=== PATIENT | female | born 1980 | race Caucasian/White ===

== ENCOUNTER 2016-07-04 17:22 | Emergency (ER) | payer MEDICARE, MEDICAID ==
[~2016-07-04] VITALS: Wt 74.4 kg
[~2016-07-04 17:22] MED LIST: ACETAMINOPHEN; ALBUTEROL2.5 MG/0.5 INH; AMBIEN10 M1 PO; AMBIEN10 MG PO; AMINOPHYLLIN200 MG PO; ANTIBIOTIC O500 U/GM TP; APAP PO; ATENOLOL25 MG PO; ATROVENT I0.5 MG/2.5 INH; AUGMENTIN 875-875 MG PO; AZO-SULFISOXAZO1 TA1 PO; BACTRIM DS 8001 TA1 PO; BENADRYL25 M2 PO; BISACODYL LAXATI5 MG PO; BISACODYL5 MG PO; CALCI-MIX500 MG PO; CALMOSEPTINE O3.5 GM TP; CEFUROXIME AXE250 MG PO; CIPRO250 MG PO; CIPRO500 MG PO; CIPRO500 MG/5 M PO; CIPROFLOXACIN250 MG PO; CIPROFLOXACIN500 MG PO; CODEINE; COREG3.125 MG PO; Ciprofloxacin500 MG PO; DEXILANT60 M1 PO; DIFLUCAN150 MG PO; DITROPAN XL5 MG PO; DOC-Q-LACE100 MG PO; DULCOLAX5 MG PO; ERYTHROMYCIN500 M1 PO; FEOSOL300 MG; FEROSUL325 MG PO; FERROUS SULFAT325 MG PO; FEVER REDUCER650 MG RC; FLOMAX0.4 MG PO; FLUCONAZOLE100 MG PO; FOLIC ACID1 MG PO; GAVISCON 95 MG360 ML PO; HUMALOG100 UNIT/1 SQ; HYDROCHLOROTHIA25 MG PO; HYDROCODONE BIT1 T11 PO; HYDROXYZINE HYD50 MG PO; KCL PO; KEFTAB500 MG PO; LASIX20 MG PO; LASIX40 MG PO; LEVEMIR10 ML SC; LEVOFLOXACIN250 M2 PO; LEVOFLOXACIN500 MG PO; LEVOTHYROXIN0.075 M1 PO; LINEZOLID600 MG PO; LISINOPRIL5 MG PO; LOMOTIL 0.025 M1 TA1 PO; LOPRESSOR25 MG PO; Lopressor25 MG PO; MACROBID100 M1 PO; MACRODANTIN100 M1 PO; MAG PO; MAG64 110 MG-181 ECT PO; MEDROL DOSEPAK4 MG PO; MEROPENEM-1 GM/50 ML IV; METOCLOPRAMIDE10 MG PO; METOPROLOL SR50 MG PO; METOPROLOL SUCC25 M2 PO; MIRALAX POWDER255 GM PO; MIRALAX17 GM PO; MIRALAX17 GM/PACK PO; MOTRIN400 MG PO; MOTRIN600 MG PO; NATURE'S BLEND F1 MG PO; NEXIUM20 MG PO; NITROFURANTOIN100 M9 PO; NORCO 10-325 T1 EACH PO; OMEPRAZOLE MAGN20 M1 PO; OXYBUTYNIN5 MG PO; OXYCODONE 20 MG/ML PO; OXYCODONE PO; OXYCODONE5 M1 PO; PAIN RELIEVER325 MG PO; PANTOPRAZOLE SO40 MG PO; PERCOCET 325 MG1 TA2 PO; PIPERACIL-TA3.375 GM IV; POLYETHYLE17 GM/Dose PO; POTASSIUM CHLO20 MEQ PO; PRILOSEC20 M1 PO; PRILOSEC20 MG PO; PROTONIX40 MG PO; PULMICORT RESP0.5 MG NEB; PYRIDIUM200 MG PO; REGLAN10 M1 PO; REGLAN10 MG PO; SLOW MAG 110 MG64 MG PO; SYNTHROID0.075 MG PO; Synthroid,Levo50 MCG PO; TAMSULOSIN HCL0.4 MG PO; TAMSULOSIN HYD0.4 MG PO; TENORMIN25 MG PO; TRAMADOL50 MG PO; TRAZODONE50 MG PO; TROSPIUM CHLORI20 M1 PO; TYLENOL W/ CODEI5 ML PO; ULTRAM50 MG PO; ZOFRAN ODT4 MG SL; ZOLPIDEM TART10 MG PO; ZOLPIDEM10 M1 PO; ZYVOX600 MG PO; [UNRECOGNIZED DRUG - OTHER] PO; [UNRECOGNIZED DRUG - OTHER] PO
[2016-07-04 18:59] LABS: HEMATOCRIT 34.6 % (37.0-47.0); HEMOGLOBIN 10.3 g/dl (12.0-16.0); MEAN CELL VOLUME 98.3 fl (81.0-99.0); MEAN CORPUSCULAR HGB 29.3 pg (27.0-31.0); MEAN CORPUSCULAR HGB CONC 29.8 g/dl (33.0-37.0); MEAN PLATELET VOLUME 11.2 fl (9.6-12.3); PLATELET COUNT AUTOMATED 262 10*3/uL (130-400); RED BLOOD COUNT 3.52 10*6/uL (4.10-5.10); RED CELL DISTRI WIDTH 19.1 % (0-14.5); WHITE BLOOD COUNT 20.1 10*3/uL (4.8-10.8)
[2016-07-04 19:15] LABS: BILIRUBIN, TOTAL 0.2 mg/dl (0.2-1.0); POTASSIUM 4.5 mmol/L (3.5-5.1); TOTAL PROTEIN 7.8 gm/dL (6.4-8.2)
[2016-07-04 19:18] LABS: EOSINOPHIL # 0.2 10*3/uL (0-0.4); EOSINOPHILS 1 % (1-4); LYMPHOCYTE # 0.6 10*3/uL (1.3-4.4); MONOCYTE # 0.6 10*3/uL (0.1-1.0); NEUTROPHIL # 18.7 10*3/uL (2.3-7.9); NEUTROPHILS 93 % (47-73); PLATELET SUFFICIENCY NORMAL (NORMAL); TOTAL CELLS COUNTED 100 #CELLS
[2016-07-04 21:40] VITALS: BP 142/88
[2016-07-28] MEDS ORDERED: MAG64 110 MG-181 ECT PO (15:01)
[2016-07-28] MEDS ORDERED: NATURE'S BLEND F1 MG PO (15:01)
[2016-07-28] MEDS ORDERED: [UNRECOGNIZED DRUG - OTHER] PO (15:02)
[2016-08-01] MEDS ORDERED: ACETAMINOPHEN &1 TA1 PO (08:33)
[2016-08-01] MEDS ORDERED: DUONEB 3 MG/3 ML3 M1 NEB (08:33)
[2016-08-01] MEDS ORDERED: FEROSUL325 MG PO (08:33)
[2016-08-01] MEDS ORDERED: NITROFURANTOIN100 M3 PO (08:33)
[2016-08-01] MEDS ORDERED: NORCO 5-325 TA1 EACH PO (08:51)
[2016-08-09] MEDS ORDERED: PANTOPRAZOLE SO40 MG PO (12:36)
[2016-08-09] MEDS ORDERED: FEROSUL325 MG PO (12:37)
[2016-08-10] MEDS ORDERED: MACRODANTIN100 M1 PO (09:42)
== END 2016-07-04 21:45 | disposition short-term general hospital (02) ==
LOC: ED 17:22
PROVIDERS: Nurse Practitioner Family
DX: R65.20 Severe sepsis without septic shock (principal); T83.022A Displacement of nephrostomy catheter, initial encounter; K21.9 Gastro-esophageal reflux disease without esophagitis; E03.9 Hypothyroidism, unspecified; Z79.899 Other long term (current) drug therapy

== ENCOUNTER → 2016-09-10 | Outpatient (CLI) | payer MEDICARE, MEDICAID ==
[~2016-09-10] MED LIST changes: +ACETAMINOPHEN &1 TA1 PO; +DUONEB 3 MG/3 ML3 M1 NEB; +NITROFURANTOIN100 M3 PO; +NORCO 5-325 TA1 EACH PO
[2016-09-10 12:04] LABS: BASO % 0.4 % (0.0-1.0); EOS # 0.5 10*3/uL (0.0-0.4); EOS % 5.2 % (1.0-4.0); HEMATOCRIT 28.2 % (37.0-47.0); HEMOGLOBIN 8.5 g/dl (12.0-16.0); IG # 0.1 10*3/uL (0.0-0.1); LYMPH # 1.5 10*3/uL (1.3-4.4); LYMPH % 16.3 % (27.0-41.0); MEAN CELL VOLUME 101.4 fl (81.0-99.0); MEAN CORPUSCULAR HGB 30.6 pg (27.0-31.0); MEAN CORPUSCULAR HGB CONC 30.1 g/dl (33.0-37.0); MEAN PLATELET VOLUME 10.7 fl (9.6-12.3); MONO # 0.4 10*3/uL (0.1-1.0); MONO % 4.5 % (3.0-9.0); NEUT # 6.9 10*3/uL (2.3-7.9); NEUT % 73.1 % (47.0-73.0); PLATELET COUNT AUTOMATED 234 10*3/uL (130-400); RED BLOOD COUNT 2.78 10*6/uL (4.10-5.10); RED CELL DISTRI WIDTH 17.6 % (0-14.5); WHITE BLOOD COUNT 9.4 10*3/uL (4.8-10.8)
== END | disposition home or self-care (01) ==
LOC: LAB 11:37
PROVIDERS: Student in an Organized Health Care Education/Training Program
DX: D64.9 Anemia, unspecified (principal)

== ENCOUNTER 2016-10-08 10:57 | Emergency (ER) | payer MEDICARE, MEDICAID ==
[~2016-10-08] VITALS: Wt 74.4 kg
[2016-10-08 11:16] VITALS: BP 108/53
[2016-10-08 11:38] LABS: BILIRUBIN NEGATIVE (NEGATIVE); BLOOD 2+ (NEGATIVE); CLARITY TURBID (CLEAR); COLOR YELLOW (YELLOW); GLUCOSE NEGATIVE (NEGATIVE); KETONE NEGATIVE (NEGATIVE); LEUKO ESTERASE 3+ (NEGATIVE); NITRITE POSITIVE (NEGATIVE); PH 5.5 (5.0-9.0); PROTEIN 1+ (NEGATIVE); UROBILINOGEN 0.2 E.U./dl (0.2-1.0)
[2016-10-08 11:57] LABS: URINE REFLEX COMMENT YES (NO); WBC TNTC wbc/hpf (0-5)
[2016-10-08] MEDS ORDERED: CIPRO500 MG PO (12:09)
== END 2016-10-08 12:26 | disposition home or self-care (01) ==
LOC: ED 10:57
PROVIDERS: Nurse Practitioner Family
DX: N39.0 Urinary tract infection, site not specified (principal); Z87.442 Personal history of urinary calculi; Z79.899 Other long term (current) drug therapy

== ENCOUNTER 2016-10-21 11:16 | Emergency (ER) | payer MEDICARE, MEDICAID ==
[~2016-10-21] VITALS: Wt 74.4 kg
[2016-10-21 11:33] VITALS: BP 105/73
[2016-10-21 12:18] LABS: BILIRUBIN NEGATIVE (NEGATIVE); BLOOD 1+ (NEGATIVE); CLARITY CLOUDY (CLEAR); COLOR YELLOW (YELLOW); GLUCOSE NEGATIVE (NEGATIVE); KETONE NEGATIVE (NEGATIVE); LEUKO ESTERASE 3+ (NEGATIVE); NITRITE NEGATIVE (NEGATIVE); PROTEIN TRACE (NEGATIVE); UROBILINOGEN 0.2 E.U./dl (0.2-1.0)
[2016-10-21 12:34] LABS: BACTERIA 3+; WBC TNTC wbc/hpf (0-5)
[2016-10-21 12:35] LABS: URINE REFLEX COMMENT YES (NO)
[2016-10-21 12:37] LABS: RBC 16-20 rbc/hpf (0-2)
== END 2016-10-21 12:03 | disposition home or self-care (01) ==
LOC: ED 11:16
PROVIDERS: Emergency Medicine
DX: Z46.6 Encounter for fitting and adjustment of urinary device (principal); N39.0 Urinary tract infection, site not specified; E03.9 Hypothyroidism, unspecified

== ENCOUNTER 2016-11-29 12:18 | Inpatient (IN) | payer MEDICARE, MEDICAID ==
[~2016-11-29] VITALS: Ht 160 cm; Wt 71.7 kg
--- NOTE | ~2016-11-29 | O ---
[place], [place] OPERATIVE NOTE [facility]: [id number] UNIT #: [id number] ROOM: 523 DOCTOR: LEONOR DIAZ,HOOD BIRTHDATE: [birth year] DOS: INDICATION: A 35-year-old patient who was presented with anemia and family remains ambiguous and concerned about the source despite discussion with them, however. PROCEDURE: Today's procedure part of investigation is colonoscopy. PREMEDICATION: Versed and Diprivan. SCOPE: Olympus folding colonoscope 10L video. REPORT: After putting the patient in the left lateral position and after application of lubricant to rectal pouch and digital examination, scope was introduced. Thereafter, under direct visualization, I advanced through the length of colon without difficulty. Colon mucosa and vascularity carefully examined. Base of the cecum explored, appendiceal orifice identified and ileocecal valve was defined. No acute pathology seen. The patient extubated, tolerated procedure well. IMPRESSION: Normal colonoscopic examination. PLAN: Supportive therapy. Soft and regular diet. ACTIVITY: Ad umang. HOOD GALVEZ MD CM:OPRECORD:OPERATIVE NOTE [id number] HOOD GALVEZ MD 12/05/16 1629 interface
--- NOTE | ~2016-11-29 | CON ---
[place], [place] REPORT OF CONSULTATION NAME: FREDDY RAUSCH UNIT #: [id number] ROOM: 523 DOCTOR: HOOD GALVEZ MD BIRTHDATE: [birth year] DOS: 12/03/2016 GASTROENDOSCOPIC CONSULTATION HISTORY OF PRESENT ILLNESS: The patient is 35 years old with mental retardation, advanced, with anemia, undergoing investigation. Initial H and H were 8 and 27 and subsequently dropped to 7 and 25. Comprehensive metabolic panel: Creatinine 2.3, GFR of 29. Electrolytes: Sodium 149, chloride 117, potassium 5.1. Liver function tests normal. B12, folate, and vitamin D has been addressed. Vitamin D is 17. CBC differential within normal limits. Urine culture greater than 100,000 gram-negative bacilli. Blood cultures unremarkable. PAST MEDICAL HISTORY: Advanced mental retardation, hiatal hernia, hypothyroidism, cerebral palsy, GERD, gastritis, renal lithiasis and renal insufficiency. PAST SURGICAL HISTORY: Nephrostomy, bone marrow transplant. SOCIAL HISTORY: Nonsmoker, nonalcohol consumer. FAMILY HISTORY: Noncontributory. ALLERGIES: To no known medications. MEDICATIONS: Medication list has been reviewed including pantoprazole. REVIEW OF SYSTEMS: Cannot be obtained from her due to the cognitive incapability and advanced retardation. PHYSICAL EXAMINATION: GENITOURINARY: No communication with the patient. HEENT: Benign for age and category of disease, exophthalmus was noticed. NECK: Supple. LUNGS: No wheeze. No rhonchi. HEART: Normal sinus rhythm, no gallop, no murmur. ABDOMEN: Obese, soft. No hepato-organomegaly. Bowel sounds present. EXTREMITIES: No cyanosis, no pedal edema. NEUROLOGIC: Alert and disoriented. LABORATORY DATA: Reviewed. Records reviewed. IMPRESSION: Gastrointestinal bleed, anemia, cerebral palsy, mental retardation, renal insufficiency, gastroesophageal reflux disease. OTHER ADJUNCTIVE DIAGNOSES: As outlined in past medical and surgical history. PLAN AND DISCUSSION: We are going to proceed with panendoscopy. [place], [place] REPORT OF CONSULTATION NAME: FREDDY RAUSCH UNIT #: [id number] ROOM: 523 DOCTOR: HOOD GALVEZ MD BIRTHDATE: [birth year] HOOD GALVEZ MD CM:CONSTR:REPORT OF CONSULTATION 1259 12/04/16 0534 interface
--- NOTE | ~2016-11-29 | O ---
[place], [place] OPERATIVE NOTE NAME: [id number] UNIT #: [id number] ROOM: 523 DOCTOR: LEONOR DIAZ,HOOD BIRTHDATE: [birth year] DOS: 12/03/2016 HISTORY OF PRESENT ILLNESS: The patient has presented with chief complaint of mental retardation, guaiac positivity, anemia, drop in H and H. PROCEDURE: Today's procedure part of investigation is panendoscopy plus biopsy. PREMEDICATIONS: Versed and Diprivan. SCOPE: Olympus forward-viewing gastroscope Q10 video. REPORT: After putting the patient in the left lateral position and after application of lubricant to the scope, the scope was introduced thereafter, under direct visualization and advanced throughout the length of the esophagus without difficulty. Distal esophageal ulceration was noticed. Gastric pouch was entered. Blood in the stomach was noticed, photographed, aspirated, suctioned out and antral biopsy obtained ruling out H. pylori. Duodenal bulb, second and third parts, no bleeding, no ulcer. The patient extubated, tolerated the procedure well. IMPRESSION: Distal esophageal ulcer, upper GI bleed. PLAN AND DISCUSSION: Protonix 40 mg IV b.i.d., Carafate 2 grams slurry q. 6 hours. Follow up on H and H transfusion. Colonic content was bloody; therefore, no colonoscopy was performed, retained stool. HOOD GALVEZ MD CM:OPRECORD:OPERATIVE NOTE [id number] [id number] HOOD GALVEZ MD 12/04/16 0925 interface
[2016-11-29 12:30] VITALS: BP 132/86
[2016-11-29 13:20] LABS: BILIRUBIN NEGATIVE (NEGATIVE); BLOOD 2+ (NEGATIVE); CLARITY CLOUDY (CLEAR); COLOR YELLOW (YELLOW); GLUCOSE NEGATIVE (NEGATIVE); KETONE NEGATIVE (NEGATIVE); LEUKO ESTERASE 3+ (NEGATIVE); NITRITE POSITIVE (NEGATIVE); PROTEIN 1+ (NEGATIVE); SPECIFIC GRAVITY 1.015 (1.005-1.030); UROBILINOGEN 0.2 E.U./dl (0.2-1.0)
[2016-11-29 13:27] LABS: URINE REFLEX COMMENT YES (NO); WBC TNTC wbc/hpf (0-5)
[2016-11-29 14:26] LABS: BASO % 0.3 % (0.0-1.0); EOS # 0.3 10*3/uL (0.0-0.4); EOS % 2.6 % (1.0-4.0); HEMATOCRIT 27.9 % (37.0-47.0); HEMOGLOBIN 8.3 g/dl (12.0-16.0); IG # 0.1 10*3/uL (0.0-0.1); LYMPH # 1.9 10*3/uL (1.3-4.4); LYMPH % 14.8 % (27.0-41.0); MEAN CORPUSCULAR HGB 30.6 pg (27.0-31.0); MEAN CORPUSCULAR HGB CONC 29.7 g/dl (33.0-37.0); MEAN PLATELET VOLUME 11.5 fl (9.6-12.3); MONO # 0.5 10*3/uL (0.1-1.0); NEUT % 77.8 % (47.0-73.0); PLATELET COUNT AUTOMATED 242 10*3/uL (130-400); RED BLOOD COUNT 2.71 10*6/uL (4.10-5.10); RED CELL DISTRI WIDTH 18.5 % (0-14.5); WHITE BLOOD COUNT 12.9 10*3/uL (4.8-10.8)
[2016-11-29 14:42] LABS: ALBUMIN 3.1 gm/dl (3.1-4.5); BILIRUBIN, TOTAL 0.2 mg/dl (0.2-1.0); TOTAL PROTEIN 7.6 gm/dL (6.4-8.2)
[2016-11-29 16:00] VITALS: BP 107/56
[2016-11-29] MEDS ORDERED: PANTOPRAZOLE SO40 MG PO (17:13)
[2016-11-29 20:00] VITALS: BP 126/46
[2016-11-30] VITALS: BP 97/70
[2016-11-30 06:25] LABS: BASO % 0.3 % (0.0-1.0); EOS # 0.2 10*3/uL (0.0-0.4); EOS % 2.4 % (1.0-4.0); HEMOGLOBIN 7.6 g/dl (12.0-16.0); IG # 0.1 10*3/uL (0.0-0.1); LYMPH # 1.5 10*3/uL (1.3-4.4); LYMPH % 14.9 % (27.0-41.0); MEAN CELL VOLUME 104.8 fl (81.0-99.0); MEAN CORPUSCULAR HGB 30.6 pg (27.0-31.0); MEAN CORPUSCULAR HGB CONC 29.2 g/dl (33.0-37.0); MEAN PLATELET VOLUME 10.8 fl (9.6-12.3); MONO # 0.3 10*3/uL (0.1-1.0); NEUT % 78.9 % (47.0-73.0); PLATELET COUNT AUTOMATED 212 10*3/uL (130-400); RED BLOOD COUNT 2.48 10*6/uL (4.10-5.10); RED CELL DISTRI WIDTH 18.2 % (0-14.5); WHITE BLOOD COUNT 10.1 10*3/uL (4.8-10.8)
[2016-11-30 06:45] LABS: ESTIMATED AVERAGE GLUCOSE 54
[2016-11-30 06:46] LABS: HEMOGLOBIN A1c < 3.5 % (4.8-5.6)
[2016-11-30 06:56] LABS: PROTHROMBIN TIME 10.4 SECONDS (9.0-12.4)
[2016-11-30 06:58] LABS: ALBUMIN 2.6 gm/dl (3.1-4.5); BILIRUBIN, TOTAL 0.2 mg/dl (0.2-1.0); FREE T4 1.16 ng/dl (0.76-1.46); MAGNESIUM 1.9 mg/dL (1.5-2.1); PHOSPHOROUS 2.6 mg/dL (2.5-4.9); POTASSIUM 4.6 mmol/L (3.5-5.1); TOTAL PROTEIN 6.6 gm/dL (6.4-8.2)
[2016-11-30 07:03] LABS: THYROID STIM HORMONE (HS) 4.13 uIU/ml (0.358-4.75)
[2016-11-30 07:15] LABS: VITAMIN D, 25-HYDROXY 17.4 ng/mL (30-100)
[2016-11-30 07:16] LABS: FOLIC ACID > 24.00 ng/mL (>5.38)
[2016-11-30 08:00] VITALS: BP 115/60
[2016-11-30 12:00] VITALS: BP 96/64
[2016-11-30 16:00] VITALS: BP 123/57
[2016-11-30 20:00] VITALS: BP 111/63
[2016-12-01] VITALS: BP 117/64
[2016-12-01 05:45] VITALS: BP 110/56
[2016-12-01 07:16] LABS: BASO % 0.2 % (0.0-1.0); EOS # 0.2 10*3/uL (0.0-0.4); EOS % 2.5 % (1.0-4.0); HEMATOCRIT 25.8 % (37.0-47.0); HEMOGLOBIN 7.6 g/dl (12.0-16.0); LYMPH # 1.2 10*3/uL (1.3-4.4); LYMPH % 14.1 % (27.0-41.0); MEAN CELL VOLUME 106.6 fl (81.0-99.0); MEAN CORPUSCULAR HGB 31.4 pg (27.0-31.0); MEAN CORPUSCULAR HGB CONC 29.5 g/dl (33.0-37.0); MEAN PLATELET VOLUME 11.6 fl (9.6-12.3); MONO # 0.2 10*3/uL (0.1-1.0); MONO % 2.8 % (3.0-9.0); NEUT # 6.8 10*3/uL (2.3-7.9); PLATELET COUNT AUTOMATED 200 10*3/uL (130-400); RED BLOOD COUNT 2.42 10*6/uL (4.10-5.10); RED CELL DISTRI WIDTH 18.3 % (0-14.5); WHITE BLOOD COUNT 8.4 10*3/uL (4.8-10.8)
[2016-12-01 07:25] LABS: POTASSIUM 4.9 mmol/L (3.5-5.1)
[2016-12-01 08:00] VITALS: BP 99/51
[2016-12-01 12:00] VITALS: BP 115/61
[2016-12-01 16:00] VITALS: BP 101/76
[2016-12-01 20:00] VITALS: BP 111/64
[2016-12-02] VITALS: BP 103/71
[2016-12-02 06:07] LABS: BASO % 0.5 % (0.0-1.0); EOS # 0.3 10*3/uL (0.0-0.4); EOS % 3.4 % (1.0-4.0); HEMATOCRIT 24.5 % (37.0-47.0); HEMOGLOBIN 7.3 g/dl (12.0-16.0); LYMPH # 1.5 10*3/uL (1.3-4.4); LYMPH % 19.2 % (27.0-41.0); MEAN CELL VOLUME 106.1 fl (81.0-99.0); MEAN CORPUSCULAR HGB 31.6 pg (27.0-31.0); MEAN CORPUSCULAR HGB CONC 29.8 g/dl (33.0-37.0); MEAN PLATELET VOLUME 11.9 fl (9.6-12.3); MONO # 0.2 10*3/uL (0.1-1.0); MONO % 2.9 % (3.0-9.0); NEUT # 5.9 10*3/uL (2.3-7.9); NEUT % 73.8 % (47.0-73.0); PLATELET COUNT AUTOMATED 196 10*3/uL (130-400); RED BLOOD COUNT 2.31 10*6/uL (4.10-5.10); RED CELL DISTRI WIDTH 18.6 % (0-14.5)
[2016-12-02 06:17] LABS: ALBUMIN 2.5 gm/dl (3.1-4.5); BILIRUBIN, TOTAL 0.1 mg/dl (0.2-1.0); POTASSIUM 5.1 mmol/L (3.5-5.1); TOTAL PROTEIN 6.2 gm/dL (6.4-8.2)
[2016-12-02 08:00] VITALS: BP 105/64
[2016-12-02] MEDS ORDERED: D-1000 185 MG-11 TAB PO (09:53)
[2016-12-02] MEDS ORDERED: CIPRO500 MG PO (10:10)
[2016-12-02 11:57] LABS: IRON 88 ug/dL (50-170); IRON SATURATION 38 %; UIBC 138 ug/dL (110-365)
[2016-12-02 12:00] VITALS: BP 110/62
[2016-12-02 16:00] VITALS: BP 108/57
[2016-12-02 20:00] VITALS: BP 119/70
[2016-12-03] VITALS (13 sets, daily range): BP systolic 92–116; BP diastolic 47–70
[2016-12-03 06:18] LABS: HEMATOCRIT 25.2 % (37.0-47.0); HEMOGLOBIN 7.3 g/dl (12.0-16.0); RETICULOCYTE % 3.41 % (0.50-2.50)
[2016-12-03 06:29] LABS: ALBUMIN 2.7 gm/dl (3.1-4.5); BILIRUBIN, TOTAL 0.2 mg/dl (0.2-1.0); POTASSIUM 5.1 mmol/L (3.5-5.1); TOTAL PROTEIN 6.7 gm/dL (6.4-8.2)
[2016-12-03 06:31] LABS: IRF 15.1 % (2.4-13.3); RET-He 33.2 pg (32.1-37.9)
[2016-12-04] VITALS: BP 105/72
[2016-12-04 06:00] VITALS: BP 120/77
[2016-12-04 06:10] LABS: BASO # 0.1 10*3/uL (0.0-0.1); BASO % 0.5 % (0.0-1.0); EOS # 0.3 10*3/uL (0.0-0.4); EOS % 2.9 % (1.0-4.0); HEMATOCRIT 30.4 % (37.0-47.0); HEMOGLOBIN 9.3 g/dl (12.0-16.0); LYMPH # 1.5 10*3/uL (1.3-4.4); LYMPH % 15.6 % (27.0-41.0); MEAN CORPUSCULAR HGB 30.6 pg (27.0-31.0); MEAN CORPUSCULAR HGB CONC 30.6 g/dl (33.0-37.0); MEAN PLATELET VOLUME 11.5 fl (9.6-12.3); MONO # 0.4 10*3/uL (0.1-1.0); MONO % 3.9 % (3.0-9.0); NEUT # 7.5 10*3/uL (2.3-7.9); NEUT % 76.9 % (47.0-73.0); PLATELET COUNT AUTOMATED 178 10*3/uL (130-400); RED BLOOD COUNT 3.04 10*6/uL (4.10-5.10); RED CELL DISTRI WIDTH 20.3 % (0-14.5); WHITE BLOOD COUNT 9.7 10*3/uL (4.8-10.8)
[2016-12-04 06:31] LABS: POTASSIUM 4.7 mmol/L (3.5-5.1)
[2016-12-04 08:00] VITALS: BP 118/67
[2016-12-04 12:00] VITALS: BP 93/57
[2016-12-04 16:00] VITALS: BP 100/51
[2016-12-04 20:00] VITALS: BP 93/55
[2016-12-05] VITALS (9 sets, daily range): BP systolic 96–112; BP diastolic 46–68
[2016-12-05 06:55] LABS: BASO # 0.1 10*3/uL (0.0-0.1); BASO % 0.4 % (0.0-1.0); EOS # 0.4 10*3/uL (0.0-0.4); EOS % 3.3 % (1.0-4.0); HEMATOCRIT 31.4 % (37.0-47.0); HEMOGLOBIN 9.8 g/dl (12.0-16.0); LYMPH # 1.9 10*3/uL (1.3-4.4); LYMPH % 16.5 % (27.0-41.0); MEAN CORPUSCULAR HGB 31.2 pg (27.0-31.0); MEAN CORPUSCULAR HGB CONC 31.2 g/dl (33.0-37.0); MEAN PLATELET VOLUME 11.2 fl (9.6-12.3); MONO # 0.5 10*3/uL (0.1-1.0); MONO % 4.3 % (3.0-9.0); NEUT # 8.6 10*3/uL (2.3-7.9); NEUT % 75.2 % (47.0-73.0); PLATELET COUNT AUTOMATED 223 10*3/uL (130-400); RED BLOOD COUNT 3.14 10*6/uL (4.10-5.10); RED CELL DISTRI WIDTH 19.6 % (0-14.5); WHITE BLOOD COUNT 11.5 10*3/uL (4.8-10.8)
[2016-12-06] VITALS: BP 101/49
[2016-12-06 08:00] VITALS: BP 109/89
== END 2016-12-06 15:18 | disposition home health service (06) | DRG 871 ==
LOC: ED 12:18 → 5E 14:08 → EDHOLD 14:08 → 5E 14:22
PROVIDERS: Family Medicine; Hospitalist; Internal Medicine; Internal Medicine Gastroenterology; Physician Assistant
PROC: 30233N1 Transfusion of Nonautologous Red Blood Cells into Peripheral Vein, Percutaneous Approach (ICD-10-PCS; principal; 2016-12-03)
PROC: 0DB68ZX Excision of Stomach, Via Natural or Artificial Opening Endoscopic, Diagnostic (ICD-10-PCS; principal; 2016-12-03)
PROC: 0DJD8ZZ Inspection of Lower Intestinal Tract, Via Natural or Artificial Opening Endoscopic (ICD-10-PCS; 2016-12-05)
DX: A41.9 Sepsis, unspecified organism (principal); E43 Unspecified severe protein-calorie malnutrition; K22.11 Ulcer of esophagus with bleeding; N39.0 Urinary tract infection, site not specified; D62 Acute posthemorrhagic anemia; N18.3 Chronic kidney disease, stage 3 (moderate); G80.9 Cerebral palsy, unspecified; F79 Unspecified intellectual disabilities; D72.810 Lymphocytopenia; E03.9 Hypothyroidism, unspecified; G47.00 Insomnia, unspecified; D63.8 Anemia in other chronic diseases classified elsewhere; E55.9 Vitamin D deficiency, unspecified; B95.2 Enterococcus as the cause of diseases classified elsewhere; B96.20 Unspecified Escherichia coli [E. coli] as the cause of diseases classified elsewhere; K44.9 Diaphragmatic hernia without obstruction or gangrene; Z16.21 Resistance to vancomycin; K21.0 Gastro-esophageal reflux disease with esophagitis; E66.9 Obesity, unspecified; Z68.28 Body mass index [BMI] 28.0-28.9, adult; Z87.442 Personal history of urinary calculi; Z93.6 Other artificial openings of urinary tract status; Z82.49 Family history of ischemic heart disease and other diseases of the circulatory system; Z83.3 Family history of diabetes mellitus

== ENCOUNTER 2016-12-14 11:19 | Inpatient (IN) | payer MEDICARE, MEDICAID ==
[~2016-12-14] VITALS: Ht 129.5 cm; Wt 76.3 kg
[~2016-12-14 11:19] MED LIST changes: +D-1000 185 MG-11 TAB PO
[2016-12-14 11:23] VITALS: BP 116/39
[2016-12-14 12:46] LABS: BASO # 0.1 10*3/uL (0.0-0.1); BASO % 0.5 % (0.0-1.0); EOS # 0.4 10*3/uL (0.0-0.4); EOS % 2.9 % (1.0-4.0); HEMOGLOBIN 10.8 g/dl (12.0-16.0); LYMPH # 2.3 10*3/uL (1.3-4.4); LYMPH % 18.3 % (27.0-41.0); MEAN CELL VOLUME 99.7 fl (81.0-99.0); MEAN CORPUSCULAR HGB 30.8 pg (27.0-31.0); MEAN CORPUSCULAR HGB CONC 30.9 g/dl (33.0-37.0); MEAN PLATELET VOLUME 11.8 fl (9.6-12.3); MONO # 0.6 10*3/uL (0.1-1.0); MONO % 4.7 % (3.0-9.0); NEUT # 9.1 10*3/uL (2.3-7.9); NEUT % 73.3 % (47.0-73.0); PLATELET COUNT AUTOMATED 307 10*3/uL (130-400); RED BLOOD COUNT 3.51 10*6/uL (4.10-5.10); RED CELL DISTRI WIDTH 16.9 % (0-14.5); WHITE BLOOD COUNT 12.4 10*3/uL (4.8-10.8)
[2016-12-14 12:55] LABS: INTERNATIONAL NORM RATIO 0.9 (2.0-3.5)
[2016-12-14 12:59] LABS: ALBUMIN 3.1 gm/dl (3.1-4.5); ALKALINE PHOSPHATASE 90 U/L (45-117); BILIRUBIN, TOTAL 0.2 mg/dl (0.2-1.0); BUN 33 mg/dl (7-24); C-REACTIVE PROTEIN 2.61 MG/DL (0-0.3); CARBON DIOXIDE 21 mmol/L (21-32); CHLORIDE 112 mmol/L (98-107); CPK 71 U/L (26-192); EST GLOM FILT AFRICAN AMERICAN 22 ml/min; GLUCOSE 107 mg/dL (65-99); MAGNESIUM 2.4 mg/dL (1.5-2.1); POTASSIUM 4.6 mmol/L (3.5-5.1); SGOT/AST 14 IU/L (3-35); SGPT/ALT 19 U/L (12-78); SODIUM 142 mmol/L (136-145); TOTAL PROTEIN 7.7 gm/dL (6.4-8.2)
[2016-12-14 13:00] LABS: CKMB < 0.5 ng/ml (0.5-3.6); TROPONIN I < 0.015 ng/ml (<0.045)
[2016-12-14 13:21] LABS: BILIRUBIN NEGATIVE (NEGATIVE); BLOOD TRACE-INTACT (NEGATIVE); CLARITY CLOUDY (CLEAR); COLOR YELLOW (YELLOW); GLUCOSE NEGATIVE (NEGATIVE); KETONE NEGATIVE (NEGATIVE); LEUKO ESTERASE 3+ (NEGATIVE); NITRITE NEGATIVE (NEGATIVE); PH 5.5 (5.0-9.0); PROTEIN NEGATIVE (NEGATIVE); UROBILINOGEN 0.2 E.U./dl (0.2-1.0)
[2016-12-14 13:32] LABS: WBC TNTC wbc/hpf (0-5)
[2016-12-14 13:33] LABS: URINE REFLEX COMMENT YES (NO); YEAST 1+
[2016-12-14 15:50] VITALS: BP 118/73
[2016-12-14 20:00] VITALS: BP 108/54
[2016-12-15] VITALS: BP 115/58
[2016-12-15 06:00] LABS: BASO # 0.1 10*3/uL (0.0-0.1); BASO % 0.4 % (0.0-1.0); EOS # 0.3 10*3/uL (0.0-0.4); EOS % 2.6 % (1.0-4.0); HEMATOCRIT 30.6 % (37.0-47.0); HEMOGLOBIN 9.5 g/dl (12.0-16.0); LYMPH # 2.4 10*3/uL (1.3-4.4); MEAN CELL VOLUME 98.7 fl (81.0-99.0); MEAN CORPUSCULAR HGB 30.6 pg (27.0-31.0); MEAN PLATELET VOLUME 11.9 fl (9.6-12.3); MONO # 0.4 10*3/uL (0.1-1.0); MONO % 3.7 % (3.0-9.0); NEUT # 8.3 10*3/uL (2.3-7.9); PLATELET COUNT AUTOMATED 242 10*3/uL (130-400); WHITE BLOOD COUNT 11.6 10*3/uL (4.8-10.8)
[2016-12-15 06:05] LABS: POTASSIUM 4.7 mmol/L (3.5-5.1)
[2016-12-15 08:00] VITALS: BP 109/65
[2016-12-15 12:00] VITALS: BP 100/73
[2016-12-15 16:00] VITALS: BP 130/74
[2016-12-15 20:00] VITALS: BP 102/55
[2016-12-16] VITALS: BP 101/49
[2016-12-16 06:57] LABS: BASO % 0.3 % (0.0-1.0); EOS # 0.2 10*3/uL (0.0-0.4); EOS % 1.1 % (1.0-4.0); HEMATOCRIT 30.1 % (37.0-47.0); HEMOGLOBIN 9.3 g/dl (12.0-16.0); IG # 0.1 10*3/uL (0.0-0.1); LYMPH # 1.6 10*3/uL (1.3-4.4); LYMPH % 11.6 % (27.0-41.0); MEAN CELL VOLUME 100.3 fl (81.0-99.0); MEAN CORPUSCULAR HGB CONC 30.9 g/dl (33.0-37.0); MEAN PLATELET VOLUME 11.4 fl (9.6-12.3); MONO # 0.3 10*3/uL (0.1-1.0); MONO % 2.4 % (3.0-9.0); NEUT # 11.2 10*3/uL (2.3-7.9); NEUT % 84.1 % (47.0-73.0); PLATELET COUNT AUTOMATED 249 10*3/uL (130-400); RED CELL DISTRI WIDTH 16.8 % (0-14.5); WHITE BLOOD COUNT 13.3 10*3/uL (4.8-10.8)
[2016-12-16 07:19] LABS: ALBUMIN 2.8 gm/dl (3.1-4.5); BILIRUBIN, TOTAL 0.2 mg/dl (0.2-1.0); MAGNESIUM 1.8 mg/dL (1.5-2.1); POTASSIUM 4.6 mmol/L (3.5-5.1); TOTAL PROTEIN 6.6 gm/dL (6.4-8.2)
[2016-12-16 08:00] VITALS: BP 100/50
[2016-12-16 12:00] VITALS: BP 98/50
[2016-12-16] MEDS ORDERED: LOPRESSOR25 MG PO (12:28)
[2016-12-16 16:00] VITALS: BP 102/52
[2016-12-16 20:00] VITALS: BP 100/55
[2016-12-17] VITALS: BP 138/72
[2016-12-17 06:51] LABS: BASO # 0.1 10*3/uL (0.0-0.1); BASO % 0.5 % (0.0-1.0); EOS # 0.4 10*3/uL (0.0-0.4); EOS % 3.7 % (1.0-4.0); HEMATOCRIT 29.8 % (37.0-47.0); HEMOGLOBIN 9.2 g/dl (12.0-16.0); LYMPH # 2.1 10*3/uL (1.3-4.4); LYMPH % 22.6 % (27.0-41.0); MEAN CELL VOLUME 100.3 fl (81.0-99.0); MEAN CORPUSCULAR HGB CONC 30.9 g/dl (33.0-37.0); MEAN PLATELET VOLUME 11.7 fl (9.6-12.3); MONO # 0.4 10*3/uL (0.1-1.0); MONO % 4.4 % (3.0-9.0); NEUT # 6.4 10*3/uL (2.3-7.9); NEUT % 68.4 % (47.0-73.0); PLATELET COUNT AUTOMATED 239 10*3/uL (130-400); RED BLOOD COUNT 2.97 10*6/uL (4.10-5.10); RED CELL DISTRI WIDTH 16.8 % (0-14.5); WHITE BLOOD COUNT 9.4 10*3/uL (4.8-10.8)
[2016-12-17 07:07] LABS: ALBUMIN 2.7 gm/dl (3.1-4.5); BILIRUBIN, TOTAL 0.2 mg/dl (0.2-1.0); MAGNESIUM 1.8 mg/dL (1.5-2.1); POTASSIUM 4.5 mmol/L (3.5-5.1); TOTAL PROTEIN 6.7 gm/dL (6.4-8.2)
[2016-12-17 08:00] VITALS: BP 117/57
[2016-12-17 12:00] VITALS: BP 116/58
[2016-12-17 16:00] VITALS: BP 117/61
[2016-12-17 20:00] VITALS: BP 112/77
[2016-12-18] VITALS: BP 119/75
[2016-12-18 06:30] LABS: BASO # 0.1 10*3/uL (0.0-0.1); BASO % 0.5 % (0.0-1.0); EOS # 0.4 10*3/uL (0.0-0.4); EOS % 3.6 % (1.0-4.0); HEMATOCRIT 29.1 % (37.0-47.0); HEMOGLOBIN 9.1 g/dl (12.0-16.0); LYMPH # 2.3 10*3/uL (1.3-4.4); LYMPH % 23.9 % (27.0-41.0); MEAN CORPUSCULAR HGB CONC 31.3 g/dl (33.0-37.0); MEAN PLATELET VOLUME 11.6 fl (9.6-12.3); MONO # 0.3 10*3/uL (0.1-1.0); MONO % 3.4 % (3.0-9.0); NEUT # 6.6 10*3/uL (2.3-7.9); NEUT % 68.4 % (47.0-73.0); PLATELET COUNT AUTOMATED 240 10*3/uL (130-400); RED BLOOD COUNT 2.94 10*6/uL (4.10-5.10); RED CELL DISTRI WIDTH 16.8 % (0-14.5); WHITE BLOOD COUNT 9.7 10*3/uL (4.8-10.8)
[2016-12-18 06:38] LABS: POTASSIUM 4.5 mmol/L (3.5-5.1)
[2016-12-18 08:00] VITALS: BP 120/72
[2016-12-18] MEDS ORDERED: CARAFATE1 G1 PO (10:03)
[2016-12-18] MEDS ORDERED: FAMOTIDINE20 M1 PO (10:03)
== END 2016-12-18 11:02 | disposition home or self-care (01) | DRG 380 ==
LOC: ED 11:19 → 4E 13:50 → EDHOLD 13:50 → 4E 14:01
PROVIDERS: Emergency Medicine; Internal Medicine
DX: K22.11 Ulcer of esophagus with bleeding (principal); N17.0 Acute kidney failure with tubular necrosis; Z94.81 Bone marrow transplant status; B37.3 Candidiasis of vulva and vagina; N39.0 Urinary tract infection, site not specified; D63.8 Anemia in other chronic diseases classified elsewhere; Z68.42 Body mass index [BMI] 45.0-49.9, adult; R70.0 Elevated erythrocyte sedimentation rate; R79.82 Elevated C-reactive protein (CRP); N18.3 Chronic kidney disease, stage 3 (moderate); E55.9 Vitamin D deficiency, unspecified; G47.00 Insomnia, unspecified; G80.9 Cerebral palsy, unspecified; E03.9 Hypothyroidism, unspecified; K21.9 Gastro-esophageal reflux disease without esophagitis; E66.01 Morbid (severe) obesity due to excess calories; F79 Unspecified intellectual disabilities; Z87.442 Personal history of urinary calculi; Z87.01 Personal history of pneumonia (recurrent); Z87.440 Personal history of urinary (tract) infections; Z93.6 Other artificial openings of urinary tract status; Z82.0 Family history of epilepsy and other diseases of the nervous system; Z83.3 Family history of diabetes mellitus; Z82.49 Family history of ischemic heart disease and other diseases of the circulatory system; Z87.11 Personal history of peptic ulcer disease; Z79.899 Other long term (current) drug therapy

== ENCOUNTER → 2017-01-03 | Outpatient (CLI) | payer MEDICARE, MEDICAID ==
[~2017-01-03] MED LIST changes: +CARAFATE1 G1 PO; +FAMOTIDINE20 M1 PO
[2017-01-03 11:19] LABS: HEMATOCRIT 34.8 % (37.0-47.0); HEMOGLOBIN 10.9 g/dl (12.0-16.0); MEAN CELL VOLUME 98.9 fl (81.0-99.0); MEAN CORPUSCULAR HGB CONC 31.3 g/dl (33.0-37.0); MEAN PLATELET VOLUME 11.2 fl (9.6-12.3); RED BLOOD COUNT 3.52 10*6/uL (4.10-5.10); RED CELL DISTRI WIDTH 16.6 % (0-14.5); WHITE BLOOD COUNT 10.5 10*3/uL (4.8-10.8)
[2017-01-03 11:49] LABS: ALBUMIN 3.3 gm/dl (3.1-4.5); BILIRUBIN, TOTAL 0.2 mg/dl (0.2-1.0); FREE T4 1.03 ng/dl (0.76-1.46); POTASSIUM 4.4 mmol/L (3.5-5.1); TOTAL PROTEIN 8.1 gm/dL (6.4-8.2)
[2017-01-03 11:56] LABS: THYROID STIM HORMONE (HS) 4.66 uIU/ml (0.358-4.75)
== END | disposition home or self-care (01) ==
LOC: LAB 10:35
PROVIDERS: Family Medicine
DX: D64.9 Anemia, unspecified (principal); K21.9 Gastro-esophageal reflux disease without esophagitis; E03.9 Hypothyroidism, unspecified

== ENCOUNTER → 2017-03-01 | Outpatient (CLI) | payer MEDICARE, MEDICAID ==
[2017-03-01 10:28] LABS: RETICULOCYTE % 1.62 % (0.50-2.50)
[2017-03-01 10:56] LABS: ALBUMIN 3.5 gm/dl (3.1-4.5); CREATININE 2.84 mg/dL (0.55-1.02); MAGNESIUM 2.4 mg/dL (1.5-2.1); PHOSPHOROUS 2.7 mg/dL (2.5-4.9); POTASSIUM 5.1 mmol/L (3.5-5.1); TOTAL PROTEIN 8.1 gm/dL (6.4-8.2)
[2017-03-01 11:33] LABS: FERRITIN 64.1 ng/mL (10.0-291.0)
[2017-03-01 11:34] LABS: PTH INTACT 88.5 pg/mL (14.0-72.0)
== END | disposition home or self-care (01) ==
LOC: LAB 09:54 → MRI 11:00
PROVIDERS: Internal Medicine Nephrology
DX: I12.9 Hypertensive chronic kidney disease with stage 1 through stage 4 chronic kidney disease, or unspecified chronic kidney disease (principal); N18.3 Chronic kidney disease, stage 3 (moderate); E55.9 Vitamin D deficiency, unspecified; R53.83 Other fatigue; E03.9 Hypothyroidism, unspecified; R51 Headache; N20.0 Calculus of kidney; F07.89 Other personality and behavioral disorders due to known physiological condition; G80.3 Athetoid cerebral palsy; D63.1 Anemia in chronic kidney disease

== ENCOUNTER → 2017-03-02 | Outpatient (CLI) | payer MEDICARE, MEDICAID ==
[2017-03-02 10:52] LABS: URINE CREATININE RANDOM 60.4 mg/dL
== END | disposition home or self-care (01) ==
LOC: LAB 10:26
PROVIDERS: Internal Medicine Nephrology
DX: I12.9 Hypertensive chronic kidney disease with stage 1 through stage 4 chronic kidney disease, or unspecified chronic kidney disease (principal); N18.3 Chronic kidney disease, stage 3 (moderate); N20.0 Calculus of kidney; F07.89 Other personality and behavioral disorders due to known physiological condition; G80.3 Athetoid cerebral palsy; E03.9 Hypothyroidism, unspecified; E55.9 Vitamin D deficiency, unspecified; D63.1 Anemia in chronic kidney disease

== ENCOUNTER → 2017-03-22 | Outpatient (CLI) | payer MEDICARE, MEDICAID | END | disposition home or self-care (01) | LOC: CT 03-19 09:00 | DX: R51 Headache (principal) ==

== ENCOUNTER 2017-04-05 11:01 | Emergency (ER) | payer MEDICARE, MEDICAID ==
[~2017-04-05] VITALS: Wt 90.7 kg
[2017-04-05 11:05] VITALS: BP 136/68
[2017-04-05 11:29] LABS: BILIRUBIN NEGATIVE (NEGATIVE); BLOOD TRACE-INTACT (NEGATIVE); CLARITY SL CLOUDY (CLEAR); COLOR YELLOW (YELLOW); GLUCOSE NEGATIVE (NEGATIVE); KETONE NEGATIVE (NEGATIVE); LEUKO ESTERASE 3+ (NEGATIVE); NITRITE NEGATIVE (NEGATIVE); UROBILINOGEN 0.2 E.U./dl (0.2-1.0)
[2017-04-05 11:47] LABS: BACTERIA 2+; WBC 31-40 wbc/hpf (0-5)
[2017-04-05 11:48] LABS: YEAST 1+
[2017-04-05] MEDS ORDERED: CIPRO250 MG PO (12:25)
== END 2017-04-05 14:21 | disposition home or self-care (01) ==
LOC: ED 11:01
PROVIDERS: Emergency Medicine
DX: N39.0 Urinary tract infection, site not specified (principal); K21.9 Gastro-esophageal reflux disease without esophagitis; N18.3 Chronic kidney disease, stage 3 (moderate); E03.9 Hypothyroidism, unspecified; Z87.442 Personal history of urinary calculi; Z93.6 Other artificial openings of urinary tract status

== ENCOUNTER → 2017-08-13 | Outpatient (CLI) | payer MEDICARE, MEDICAID ==
[2017-08-13 11:34] LABS: HEMATOCRIT 40.3 % (37.0-47.0); HEMOGLOBIN 12.5 g/dl (12.0-16.0); MEAN CORPUSCULAR HGB 31.6 pg (27.0-31.0); MEAN PLATELET VOLUME 11.3 fl (9.6-12.3); RED BLOOD COUNT 3.95 10*6/uL (4.10-5.10); RED CELL DISTRI WIDTH 13.6 % (0-14.5); WHITE BLOOD COUNT 12.4 10*3/uL (4.8-10.8)
[2017-08-13 12:02] LABS: ALBUMIN 3.6 gm/dl (3.1-4.5); CREATININE 2.53 mg/dL (0.55-1.02); FREE T4 1.36 ng/dl (0.76-1.46); POTASSIUM 4.4 mmol/L (3.5-5.1)
[2017-08-13 12:07] LABS: THYROID STIM HORMONE (HS) 1.4 uIU/ml (0.358-4.75)
== END | disposition home or self-care (01) ==
LOC: LAB 11:02
PROVIDERS: Family Medicine
DX: E78.00 Pure hypercholesterolemia, unspecified (principal); E55.9 Vitamin D deficiency, unspecified; N39.0 Urinary tract infection, site not specified; I10 Essential (primary) hypertension; K21.9 Gastro-esophageal reflux disease without esophagitis

== ENCOUNTER 2017-10-03 12:13 | Emergency (ER) | payer MEDICARE, MEDICAID ==
[~2017-10-03] VITALS: Ht 160 cm; Wt 73.0 kg
[2017-10-03 12:18] VITALS: BP 101/60
[2017-10-03] MEDS ORDERED: AMOXICILLIN500 M2 PO (14:26)
[2017-10-03] MEDS ORDERED: MIRALAX POWDER17 G1 PO (14:26)
[2017-10-03] MEDS ORDERED: ZYRTEC10 MG PO (14:26)
== END 2017-10-03 14:30 | disposition home or self-care (01) ==
LOC: ED 12:13
DX: K59.00 Constipation, unspecified (principal); J06.9 Acute upper respiratory infection, unspecified; Z98.890 Other specified postprocedural states; Z79.899 Other long term (current) drug therapy; Z87.442 Personal history of urinary calculi

== ENCOUNTER 2017-12-30 09:32 | Emergency (ER) | payer MEDICARE, MEDICAID ==
[~2017-12-30] VITALS: Ht 160 cm; Wt 73.0 kg
[~2017-12-30 09:32] MED LIST changes: -LEVAQUIN250 M1 PO
[2017-12-30 09:34] VITALS: BP 109/58
[2017-12-30 10:21] LABS: BILIRUBIN NEGATIVE (NEGATIVE); BLOOD TRACE-INTACT (NEGATIVE); CLARITY SL CLOUDY (CLEAR); COLOR YELLOW (YELLOW); GLUCOSE NEGATIVE (NEGATIVE); KETONE NEGATIVE (NEGATIVE); LEUKO ESTERASE 1+ (NEGATIVE); NITRITE NEGATIVE (NEGATIVE); PH 5.5 (5.0-9.0); UROBILINOGEN 0.2 E.U./dl (0.2-1.0)
[2017-12-30 10:41] LABS: BACTERIA 1+; WBC TNTC wbc/hpf (0-5)
[2017-12-30 10:42] LABS: YEAST 3+
[2017-12-30] MEDS ORDERED: LEVAQUIN250 M1 PO (10:57)
== END 2017-12-30 11:01 | disposition home or self-care (01) ==
LOC: ED 09:32
PROVIDERS: Emergency Medicine
DX: N39.0 Urinary tract infection, site not specified (principal); N18.3 Chronic kidney disease, stage 3 (moderate); K21.9 Gastro-esophageal reflux disease without esophagitis; E03.9 Hypothyroidism, unspecified; E66.01 Morbid (severe) obesity due to excess calories; Z79.899 Other long term (current) drug therapy; Z68.42 Body mass index [BMI] 45.0-49.9, adult

== ENCOUNTER → 2017-12-30 | Outpatient (CLI) | payer MEDICARE, MEDICAID ==
[~2017-12-30] MED LIST changes: +AMOXICILLIN500 M2 PO; +LEVAQUIN250 M1 PO; +MIRALAX POWDER17 G1 PO; +ZYRTEC10 MG PO
[2017-12-30 09:49] LABS: BASO % 0.2 % (0.0-1.0); EOS # 0.3 10*3/uL (0.0-0.4); EOS % 2.5 % (1.0-4.0); HEMATOCRIT 33.8 % (37.0-47.0); HEMOGLOBIN 10.5 g/dl (12.0-16.0); LYMPH % 16.6 % (27.0-41.0); MEAN CELL VOLUME 101.8 fl (81.0-99.0); MEAN CORPUSCULAR HGB 31.6 pg (27.0-31.0); MEAN CORPUSCULAR HGB CONC 31.1 g/dl (33.0-37.0); MEAN PLATELET VOLUME 11.8 fl (9.6-12.3); MONO # 0.4 10*3/uL (0.1-1.0); MONO % 3.1 % (3.0-9.0); NEUT # 9.4 10*3/uL (2.3-7.9); NEUT % 77.3 % (47.0-73.0); PLATELET COUNT AUTOMATED 202 10*3/uL (130-400); RED BLOOD COUNT 3.32 10*6/uL (4.10-5.10); RED CELL DISTRI WIDTH 14.3 % (0-14.5); WHITE BLOOD COUNT 12.2 10*3/uL (4.8-10.8)
[2017-12-30 09:52] LABS: ALBUMIN 3.3 gm/dl (3.1-4.5); CREATININE 2.96 mg/dL (0.55-1.02); PHOSPHOROUS 1.9 mg/dL (2.5-4.9); POTASSIUM 4.4 mmol/L (3.5-5.1)
[2017-12-30 09:55] LABS: TOTAL PROTEIN 7.9 gm/dL (6.4-8.2)
[2017-12-30 10:23] LABS: URINE CREATININE RANDOM 90.6 mg/dL
[2017-12-30 10:54] LABS: VITAMIN D, 25-HYDROXY 28.6 ng/mL (30-100)
[2017-12-30 10:55] LABS: FERRITIN 72.7 ng/mL (10.0-291.0); PTH INTACT 59.9 pg/mL (18.5-88.0)
== END | disposition home or self-care (01) ==
LOC: LAB 08:58
PROVIDERS: Internal Medicine Nephrology
DX: I12.9 Hypertensive chronic kidney disease with stage 1 through stage 4 chronic kidney disease, or unspecified chronic kidney disease (principal); N18.3 Chronic kidney disease, stage 3 (moderate); N20.0 Calculus of kidney; F07.89 Other personality and behavioral disorders due to known physiological condition; G80.3 Athetoid cerebral palsy; E03.9 Hypothyroidism, unspecified; E55.9 Vitamin D deficiency, unspecified; D63.1 Anemia in chronic kidney disease

== ENCOUNTER 2018-02-19 18:10 | Emergency (ER) | payer MEDICARE, MEDICAID ==
[~2018-02-19] VITALS: Wt 72.6 kg
[~2018-02-19 18:10] MED LIST changes: +LEVAQUIN250 M1 PO
[2018-02-19 19:32] LABS: BASO # 0.1 10*3/uL (0.0-0.1); BASO % 0.3 % (0.0-1.0); EOS # 0.3 10*3/uL (0.0-0.4); HEMATOCRIT 34.6 % (37.0-47.0); HEMOGLOBIN 10.8 g/dl (12.0-16.0); LYMPH # 1.4 10*3/uL (1.3-4.4); MEAN CELL VOLUME 102.4 fl (81.0-99.0); MEAN CORPUSCULAR HGB CONC 31.2 g/dl (33.0-37.0); MEAN PLATELET VOLUME 11.3 fl (9.6-12.3); MONO # 0.7 10*3/uL (0.1-1.0); MONO % 3.9 % (3.0-9.0); NEUT # 14.6 10*3/uL (2.3-7.9); NEUT % 85.4 % (47.0-73.0); PLATELET COUNT AUTOMATED 196 10*3/uL (130-400); RED BLOOD COUNT 3.38 10*6/uL (4.10-5.10); RED CELL DISTRI WIDTH 14.2 % (0-14.5); WHITE BLOOD COUNT 17.1 10*3/uL (4.8-10.8)
[2018-02-19 19:51] LABS: ALBUMIN 3.1 gm/dl (3.1-4.5); CREATININE 3.88 mg/dL (0.55-1.02); POTASSIUM 4.5 mmol/L (3.5-5.1); TOTAL PROTEIN 7.8 gm/dL (6.4-8.2)
[2018-02-19 19:59] LABS: BILIRUBIN NEGATIVE (NEGATIVE); BLOOD 3+ (NEGATIVE); CLARITY CLOUDY (CLEAR); COLOR YELLOW (YELLOW); GLUCOSE NEGATIVE (NEGATIVE); KETONE NEGATIVE (NEGATIVE); LEUKO ESTERASE 2+ (NEGATIVE); NITRITE NEGATIVE (NEGATIVE); UROBILINOGEN 0.2 E.U./dl (0.2-1.0)
[2018-02-19 20:07] LABS: BACTERIA 2+; MUCOUS TRACE; WBC TNTC wbc/hpf (0-5)
[2018-02-19 22:53] VITALS: BP 100/60
== END 2018-02-20 01:04 | disposition left against medical advice (07) ==
LOC: ED 18:10
PROVIDERS: Physician Assistant
DX: R10.13 Epigastric pain (principal); R19.7 Diarrhea, unspecified; Z79.899 Other long term (current) drug therapy

== ENCOUNTER → 2018-03-10 | Outpatient (CLI) | payer MEDICARE, MEDICAID | END | disposition home or self-care (01) | LOC: RAD 10:51 | DX: I51.7 Cardiomegaly (principal); K44.9 Diaphragmatic hernia without obstruction or gangrene; R06.2 Wheezing; J18.9 Pneumonia, unspecified organism ==

== ENCOUNTER → 2018-03-19 | Outpatient (CLI) | payer MEDICARE, MEDICAID | END | disposition home or self-care (01) | LOC: RAD 08:31 | DX: J90 Pleural effusion, not elsewhere classified (principal) ==

== ENCOUNTER → 2018-03-24 | Outpatient (CLI) | payer MEDICARE, MEDICAID ==
[2018-03-24 13:31] LABS: ALBUMIN 3.6 gm/dl (3.1-4.5); CREATININE 4.09 mg/dL (0.55-1.02); PHOSPHOROUS 2.8 mg/dL (2.5-4.9)
[2018-03-24 13:35] LABS: POTASSIUM 4.1 mmol/L (3.5-5.1)
== END | disposition home or self-care (01) ==
LOC: LAB 12:40
PROVIDERS: Family Medicine
DX: N18.3 Chronic kidney disease, stage 3 (moderate) (principal)

== ENCOUNTER → 2018-04-07 | Outpatient (CLI) | payer MEDICARE, MEDICAID ==
[2018-04-07 11:43] LABS: ALBUMIN 3.3 gm/dl (3.1-4.5); CREATININE 2.85 mg/dL (0.55-1.02); PHOSPHOROUS 2.1 mg/dL (2.5-4.9); POTASSIUM 4.3 mmol/L (3.5-5.1)
== END | disposition home or self-care (01) ==
LOC: LAB 10:51
PROVIDERS: Family Medicine
DX: N18.2 Chronic kidney disease, stage 2 (mild) (principal)

== ENCOUNTER → 2018-05-28 | Outpatient (CLI) | payer MEDICARE, MEDICAID | END | disposition home or self-care (01) | LOC: RAD 10:02 | DX: M41.85 Other forms of scoliosis, thoracolumbar region (principal); N20.0 Calculus of kidney ==

== ENCOUNTER 2018-08-03 20:34 | Inpatient (IN) | payer MEDICARE, MEDICAID ==
[~2018-08-03] VITALS: Ht 160 cm; Wt 73.0 kg
[2018-08-03 20:35] VITALS: BP 106/55
--- NOTE | 2018-08-03 21:03 | NUR ---
pulse ox was 90%ra oxygen applied via nc @3l pulse ox up to 94%
--- NOTE | 2018-08-03 21:33 | NUR ---
PT HAD EMESIS AFTER AMRIK STRONG NOTIFIED
[2018-08-03 21:42] LABS: HEMOGLOBIN 12.6 g/dl (12.0-16.0); MEAN CELL VOLUME 104.3 fl (81.0-99.0); MEAN CORPUSCULAR HGB 32.1 pg (27.0-31.0); MEAN CORPUSCULAR HGB CONC 30.7 g/dl (33.0-37.0); MEAN PLATELET VOLUME 11.4 fl (9.6-12.3); PLATELET COUNT AUTOMATED 214 10*3/uL (130-400); RED BLOOD COUNT 3.93 10*6/uL (4.10-5.10); RED CELL DISTRI WIDTH 13.6 % (0-14.5); WHITE BLOOD COUNT 13.8 10*3/uL (4.8-10.8)
[2018-08-03 21:58] LABS: ALBUMIN 3.4 gm/dl (3.1-4.5); CREATININE 2.91 mg/dL (0.55-1.02); PHOSPHOROUS 2.8 mg/dL (2.5-4.9); POTASSIUM 5.1 mmol/L (3.5-5.1); TOTAL PROTEIN 8.4 gm/dL (6.4-8.2)
[2018-08-03 21:59] LABS: FREE T4 1.34 ng/dl (0.76-1.46)
[2018-08-03 22:00] LABS: BASOPHILS 1 % (0-1); PLATELET SUFFICIENCY NORMAL (NORMAL); TOTAL CELLS COUNTED 100 #CELLS
[2018-08-03 22:01] LABS: POLYCHROMASIA SLIGHT; TOXIC GRANULATION SLIGHT
[2018-08-03 22:04] LABS: THYROID STIM HORMONE (HS) 4.55 uIU/ml (0.358-4.75)
[2018-08-04 00:01] VITALS: BP 124/66
--- NOTE | 2018-08-04 00:17 | NUR ---
Time: 16 A 37 year old FEMALE admitted to 4E under services of PRISCILLA DUNAWAY DO. Pt. arrived via stretcher from ER. Chief complaint: NAUSEA/VOMITING. ESTELA JOHNSON
--- NOTE | 2018-08-04 00:25 | NUR ---
WHENI TOOK PT TO THE FLOOR I NOTICED HER IV LOOKED INFILTRATED SO I STOPPED IV FLUIDS AND NURSE ON FLOOR I AWARE IV WAS INFILTRATED RIGHT UPPER ARM RED SWOLLEN
[2018-08-04] MEDS ORDERED: TRAZODONE50 MG PO (01:03)
--- NOTE | 2018-08-04 01:06 | NUR ---
MED REC COMPLETED PER PT'S GRANDMOTHER.
--- NOTE | 2018-08-04 03:00 | NUR ---
DR FERRERA NOTIFIED IV INFILTRATED AND DISCONTINUED. MULTIPLE NURSE ATTEMPTS UNSUCCESSFUL. NO ONE AVAILABLE IN HOUSE FOR US GUIDED.
[2018-08-04 06:22] LABS: HEMATOCRIT 37.8 % (37.0-47.0); HEMOGLOBIN 11.3 g/dl (12.0-16.0); MEAN CELL VOLUME 105.9 fl (81.0-99.0); MEAN CORPUSCULAR HGB 31.7 pg (27.0-31.0); MEAN CORPUSCULAR HGB CONC 29.9 g/dl (33.0-37.0); MEAN PLATELET VOLUME 11.3 fl (9.6-12.3); PLATELET COUNT AUTOMATED 187 10*3/uL (130-400); RED BLOOD COUNT 3.57 10*6/uL (4.10-5.10); RED CELL DISTRI WIDTH 13.6 % (0-14.5); WHITE BLOOD COUNT 10.3 10*3/uL (4.8-10.8)
--- NOTE | 2018-08-04 06:49 | NUR ---
AM MED TAKEN WITH SIPS OF WATER. NO S/S DISCOMFORT, NO EMESIS. WILL CONT TO MONITOR.
[2018-08-04 06:50] LABS: ALBUMIN 3.1 gm/dl (3.1-4.5); CREATININE 2.8 mg/dL (0.55-1.02); PHOSPHOROUS 2.4 mg/dL (2.5-4.9); POTASSIUM 4.9 mmol/L (3.5-5.1); TOTAL PROTEIN 7.4 gm/dL (6.4-8.2)
[2018-08-04 07:28] LABS: PLATELET SUFFICIENCY NORMAL (NORMAL); TOTAL CELLS COUNTED 100 #CELLS
[2018-08-04 07:29] LABS: POLYCHROMASIA SLIGHT; TOXIC GRANULATION SLIGHT
[2018-08-04 08:00] VITALS: BP 94/56
--- NOTE | 2018-08-04 08:21 | NUR ---
SPOKE WITH DR ALFONSO REGARDING PT NOT HAVING IV ACCESS DUE TO SITE INFILTRATING DURING THE PM SHIFT. MULTIPLE NURSES TRIED TO OBTAIN AN IV SITE WITH NO SUCCESS. PHYSICIAN STATES THAT HE WILL ADDRESS IT. IV JAMESFRKIMMIE CHANGED TO SL AMRIK.
--- NOTE | 2018-08-04 08:50 | NUR ---
KASIA DEGROOT OBTAINED IV ACCESS TO LEFT UPPER CHEST. 20G CATHETER INSERTED, FLUSHING WITH EASE. GOOD BLOOD RETURN. PT TOLERATED WELL. WILL NOTIFY PHYSICIAN OF NEW IV SITE.
--- NOTE | 2018-08-04 09:00 | NUR ---
case management visits with patient, patient unable to carry on a conversation, patient lives with her grandma. will call her grandma and discuss a discharge plan.
--- NOTE | 2018-08-04 09:10 | NUR ---
DR LEMA STATES THAT HE IS PUTTING IN ORDERS FOR PT TO HAVE CT OF ABDOMEN/PELVIS AND ORDERS FOR FLUIDS/ANTIBIOTICS. PT GRANDMOTHER AWARE OF NEW ORDERS.
--- NOTE | 2018-08-04 09:15 | NUR ---
IN AN ATTEMPT TO RUN IV FLUIDS AND IV ROCEPHIN, IV SITE TO LEFT UPPER CHEST HAS BECOME OCCLUDED AND UNABLE TO BE USED. DR ALFONSO MADE AWARE OF THIS AND STATES THAT HE WILL ADDRESS THE ISSUE. PT UNABLE TO RECEIVED IV FLUIDS AND IV ANTIBIOTICS AT THIS TIME.
--- NOTE | 2018-08-04 09:30 | NUR ---
SEBASTIAN FROM CT CALLS REGARDING PT CT. SEBASTIAN MADE AWARE THAT PT IS REFUSING TO DRINK READI-CAT. COSMETIC SALES ASSISTANT STATES THAT SHE WILL SEND SOMEONE UP TO THE FLOOR TO TRANSPORT PT DOWN TO CT. COSMETIC SALES ASSISTANT STATES THAT THE VIEWS WILL JUST BE LIMITED DUE TO NO READI-CAT INTAKE.
[2018-08-04 12:00] VITALS: BP 112/63
--- NOTE | 2018-08-04 14:35 | NUR ---
case management visits with patient and grandmother, grandmother states patient lives with her, grandmother is patient's caregiver, grandmother states they have all of the equipment needed when patient goes home, she would like to have home health services, nursing and aids. given choice of [employer], grandmother chose [employer]. will send referral to [facility] for when patient is medically stable for discharge
--- NOTE | 2018-08-04 15:10 | NUR ---
CONSULT CALLED TO DR ALFONSO PER PHYSICIAN ORDERS. PHYSICIAN STATES THAT HE WILL SEE PT IN THE AM.
[2018-08-04 16:00] VITALS: BP 124/81
[2018-08-04 20:00] VITALS: BP 110/61
[2018-08-05] VITALS: BP 101/56
[2018-08-05 06:18] LABS: BASO % 0.2 % (0.0-1.0); EOS # 0.2 10*3/uL (0.0-0.4); EOS % 1.2 % (1.0-4.0); HEMATOCRIT 34.4 % (37.0-47.0); HEMOGLOBIN 10.5 g/dl (12.0-16.0); LYMPH # 0.8 10*3/uL (1.3-4.4); LYMPH % 6.8 % (27.0-41.0); MEAN CELL VOLUME 105.5 fl (81.0-99.0); MEAN CORPUSCULAR HGB 32.2 pg (27.0-31.0); MEAN CORPUSCULAR HGB CONC 30.5 g/dl (33.0-37.0); MEAN PLATELET VOLUME 11.2 fl (9.6-12.3); MONO # 0.5 10*3/uL (0.1-1.0); MONO % 4.1 % (3.0-9.0); NEUT # 10.5 10*3/uL (2.3-7.9); NEUT % 87.4 % (47.0-73.0); PLATELET COUNT AUTOMATED 174 10*3/uL (130-400); RED BLOOD COUNT 3.26 10*6/uL (4.10-5.10); RED CELL DISTRI WIDTH 13.4 % (0-14.5); WHITE BLOOD COUNT 12.1 10*3/uL (4.8-10.8)
[2018-08-05 06:27] LABS: CREATININE 2.59 mg/dL (0.55-1.02); POTASSIUM 4.8 mmol/L (3.5-5.1)
[2018-08-05 08:00] VITALS: BP 117/66
--- NOTE | 2018-08-05 09:00 | NUR ---
case management visits with patient, grandmother stated that she had talked home health over with her daughter and they decided they did not want any home services at this time, grandmother denies any home needs at this time, case management will follow
[2018-08-05 12:00] VITALS: BP 115/73
[2018-08-05 12:30] VITALS: BP 115/71
--- NOTE | 2018-08-05 12:35 | NUR ---
PATIENT TO SURGERY FOR MEDIPORT PLACEMENT.
--- NOTE | 2018-08-05 14:00 | NUR ---
PATIENT RETURNED FROM SURGERY. DID NOT HAVE THE MEDIPORT PLACED PER .
[2018-08-05 16:00] VITALS: BP 105/66
--- NOTE | 2018-08-05 16:11 | NUR ---
IV ACCESS ESTABLISHED. CALLED AND MADE DR BLAS AWARE TO SEE ABOUT MEDIPORT INSERTION BEING RESCHEDULED. DR BLAS STATES POSSIBLY TOMORROW AND HE WILL TALK TO OR
[2018-08-05 20:00] VITALS: BP 117/78
[2018-08-06] VITALS: BP 128/72
--- NOTE | 2018-08-06 02:17 | NUR ---
RESTING IN BED AT THIS TIME. BED IS IN LOWEST POSITION WITH WHEELS LOCKED. BED ALARM INTACT. IV FLUIDS INFUSING INTO RIGHT ARM. O2 VIA NC IN USE. NO DISTRESS IS NOTED. CALL LIGHT IS WITHIN REACH. WILL MONITOR.
--- NOTE | 2018-08-06 06:22 | NUR ---
ATTEMPTED TO GIVE ORAL MEDICATIONS. PATIENT WOULD NOT ACCEPT MEDICATIONS IN PILL FORM OR IN APPLESAUCE.
[2018-08-06 06:55] LABS: ALBUMIN 2.7 gm/dl (3.1-4.5); CREATININE 2.29 mg/dL (0.55-1.02); POTASSIUM 4.4 mmol/L (3.5-5.1)
[2018-08-06 06:56] LABS: PHOSPHOROUS 1.5 mg/dL (2.5-4.9)
--- NOTE | 2018-08-06 07:00 | NUR ---
BEDSIDE REPORT OBTAINED FROM SOTO. PATIENT IS AWAKE AND ALERT, RESPONDS WITH EYES WHEN NAME IS SAID, NO VERBAL REPSONSE. NO S&S OF DISTRESS NOTED, RESP ARE ERND ON ROOM AIR. IVF NS FLOWING TO RIGHT ARM @100CC/HR. BED IS LOCKED IN LOWEST POSITION, ALARM MAINTAINED. CALL LIGHT LEFT WITHIN REACH.
[2018-08-06 07:58] LABS: BASO % 0.1 % (0.0-1.0); EOS # 0.2 10*3/uL (0.0-0.4); EOS % 3.2 % (1.0-4.0); HEMATOCRIT 31.6 % (37.0-47.0); HEMOGLOBIN 9.7 g/dl (12.0-16.0); LYMPH # 1.3 10*3/uL (1.3-4.4); LYMPH % 17.3 % (27.0-41.0); MEAN CORPUSCULAR HGB 32.6 pg (27.0-31.0); MEAN CORPUSCULAR HGB CONC 30.7 g/dl (33.0-37.0); MEAN PLATELET VOLUME 11.4 fl (9.6-12.3); MONO # 0.6 10*3/uL (0.1-1.0); MONO % 7.6 % (3.0-9.0); NEUT # 5.3 10*3/uL (2.3-7.9); NEUT % 71.4 % (47.0-73.0); PLATELET COUNT AUTOMATED 174 10*3/uL (130-400); RED BLOOD COUNT 2.98 10*6/uL (4.10-5.10); RED CELL DISTRI WIDTH 13.7 % (0-14.5); WHITE BLOOD COUNT 7.4 10*3/uL (4.8-10.8)
[2018-08-06 08:00] VITALS: BP 112/76
--- NOTE | 2018-08-06 09:00 | NUR ---
case management visits with patient, patient will be going home with her grandma when medically stable for discharge. grandma doesn't want any home health services at this time
--- NOTE | 2018-08-06 10:20 | NUR ---
/NATY IN TO SEE PATIENT AT BEDSIDE. INFORMED THAT PATIENT IS REFUSING PO MEDICATIONS AND REFUSED TO DRINK FOE THIS NURSE THIS AM. INFORMED THAT UC C&S UNCOLLECTED AT THIS TIME, PATIENT INCONT. STATES TO STRAIGHT CATH FOR URINE TO SEND.
--- NOTE | 2018-08-06 10:25 | NUR ---
PATIENT STRAIGHT CATHED AT THIS TIME FOR URINE SAMPLE. PATIENT TOLERATED WELL. URINE SAMPLE SENT TO LAB.
[2018-08-06 10:57] LABS: BILIRUBIN NEGATIVE (NEGATIVE); BLOOD 3+ (NEGATIVE); CLARITY SL CLOUDY (CLEAR); COLOR YELLOW (YELLOW); GLUCOSE NEGATIVE (NEGATIVE); KETONE NEGATIVE (NEGATIVE); LEUKO ESTERASE 2+ (NEGATIVE); NITRITE NEGATIVE (NEGATIVE); PH 6.5 (5.0-9.0); SPECIFIC GRAVITY <= 1.005 (1.005-1.030); UROBILINOGEN 0.2 E.U./dl (0.2-1.0)
[2018-08-06 11:10] LABS: RBC TNTC rbc/hpf (0-2); WBC 16-20 wbc/hpf (0-5)
[2018-08-06 12:00] VITALS: BP 118/74
[2018-08-06 16:00] VITALS: BP 117/77
[2018-08-06 20:00] VITALS: BP 98/69
[2018-08-07] VITALS: BP 116/58
[2018-08-07 06:52] LABS: ALBUMIN 2.7 gm/dl (3.1-4.5); BASO % 0.3 % (0.0-1.0); CREATININE 1.99 mg/dL (0.55-1.02); EOS # 0.3 10*3/uL (0.0-0.4); EOS % 3.2 % (1.0-4.0); HEMOGLOBIN 9.9 g/dl (12.0-16.0); LYMPH # 1.6 10*3/uL (1.3-4.4); MEAN CORPUSCULAR HGB 31.3 pg (27.0-31.0); MEAN CORPUSCULAR HGB CONC 30.9 g/dl (33.0-37.0); MEAN PLATELET VOLUME 11.7 fl (9.6-12.3); MONO # 0.5 10*3/uL (0.1-1.0); MONO % 5.5 % (3.0-9.0); NEUT # 6.4 10*3/uL (2.3-7.9); NEUT % 72.4 % (47.0-73.0); PHOSPHOROUS 1.4 mg/dL (2.5-4.9); PLATELET COUNT AUTOMATED 183 10*3/uL (130-400); POTASSIUM 4.4 mmol/L (3.5-5.1); RED BLOOD COUNT 3.16 10*6/uL (4.10-5.10); RED CELL DISTRI WIDTH 13.6 % (0-14.5); TOTAL PROTEIN 6.7 gm/dL (6.4-8.2); WHITE BLOOD COUNT 8.9 10*3/uL (4.8-10.8)
[2018-08-07 06:54] LABS: MEAN CELL VOLUME 101.3 fl (81.0-99.0)
[2018-08-07 08:00] VITALS: BP 108/60
--- NOTE | 2018-08-07 09:00 | NUR ---
case management visits with patient, patient unable to carry on a conversation. patient will be going home with [facility] when medically stable. [facility] has declined any home services
[2018-08-07 12:00] VITALS: BP 113/78
[2018-08-07 16:00] VITALS: BP 93/56
--- NOTE | 2018-08-07 16:00 | NUR ---
GRANDMA AT BEDSIDE AT THIS TIME. PT SITTING UP IN BED, PLEASANT MOOD. GRANDMOTHER STATES THAT PT SEEMS TO FEELING BETTER. NO S/S OF DISTRESS NOTED. CALL LIGHT IN REACH.
[2018-08-07 20:00] VITALS: BP 120/70
[2018-08-08] VITALS: BP 103/75
[2018-08-08 06:09] LABS: BASO % 0.3 % (0.0-1.0); EOS # 0.3 10*3/uL (0.0-0.4); EOS % 3.4 % (1.0-4.0); HEMATOCRIT 31.8 % (37.0-47.0); HEMOGLOBIN 9.9 g/dl (12.0-16.0); LYMPH # 1.9 10*3/uL (1.3-4.4); LYMPH % 20.9 % (27.0-41.0); MEAN CORPUSCULAR HGB 32.7 pg (27.0-31.0); MEAN CORPUSCULAR HGB CONC 31.1 g/dl (33.0-37.0); MONO # 0.5 10*3/uL (0.1-1.0); MONO % 5.1 % (3.0-9.0); NEUT # 6.2 10*3/uL (2.3-7.9); NEUT % 69.6 % (47.0-73.0); PLATELET COUNT AUTOMATED 183 10*3/uL (130-400); RED BLOOD COUNT 3.03 10*6/uL (4.10-5.10); RED CELL DISTRI WIDTH 14.3 % (0-14.5); WHITE BLOOD COUNT 8.9 10*3/uL (4.8-10.8)
[2018-08-08 06:25] LABS: ALBUMIN 2.7 gm/dl (3.1-4.5); CREATININE 2.05 mg/dL (0.55-1.02); PHOSPHOROUS 1.5 mg/dL (2.5-4.9); POTASSIUM 4.4 mmol/L (3.5-5.1); TOTAL PROTEIN 6.6 gm/dL (6.4-8.2)
[2018-08-08 08:00] VITALS: BP 120/51
--- NOTE | 2018-08-08 09:00 | NUR ---
case management visits with patient, patient will be going home with grandnm when medically stable. [facility] denies any home needs at this time
[2018-08-08] MEDS ORDERED: METRONIDAZOLE500 M1 PO (11:24)
[2018-08-08] MEDS ORDERED: CEFDINIR300 MG PO (11:24)
[2018-08-08 12:00] VITALS: BP 118/87
--- NOTE | 2018-08-08 13:20 | NUR ---
Discharge instructions reviewed with patient/family. Patient receptive and verbalizes understanding. Follow-up care arranged. Written instructions given to patient/family. PRINTED SCRIPTS GIVEN TO FAMILY GABRIELA LANCE
== END 2018-08-08 13:20 | disposition home or self-care (01) | DRG 871 ==
LOC: ED 20:34 → 4E 23:58 → EDHOLD 23:58 → 4E 08-04 00:11
PROVIDERS: Emergency Medicine; Internal Medicine; Physician Assistant; ADMIT Internal Medicine
DX: A41.9 Sepsis, unspecified organism (principal); K85.90 Acute pancreatitis without necrosis or infection, unspecified; N17.9 Acute kidney failure, unspecified; Z68.42 Body mass index [BMI] 45.0-49.9, adult; A08.4 Viral intestinal infection, unspecified; J40 Bronchitis, not specified as acute or chronic; G80.9 Cerebral palsy, unspecified; D63.8 Anemia in other chronic diseases classified elsewhere; E83.39 Other disorders of phosphorus metabolism; E87.8 Other disorders of electrolyte and fluid balance, not elsewhere classified; K21.9 Gastro-esophageal reflux disease without esophagitis; E66.01 Morbid (severe) obesity due to excess calories; E86.0 Dehydration; E78.1 Pure hyperglyceridemia; E83.41 Hypermagnesemia; R73.9 Hyperglycemia, unspecified; E03.9 Hypothyroidism, unspecified; N18.3 Chronic kidney disease, stage 3 (moderate); Z87.442 Personal history of urinary calculi; Z83.3 Family history of diabetes mellitus; Z82.49 Family history of ischemic heart disease and other diseases of the circulatory system; Z87.440 Personal history of urinary (tract) infections; Z79.899 Other long term (current) drug therapy; Z68.28 Body mass index [BMI] 28.0-28.9, adult

== ENCOUNTER → 2018-10-27 | Outpatient (CLI) | payer MEDICARE, MEDICAID ==
[~2018-10-27] MED LIST changes: +BUDESONIDE0.5 MG/2 M NEB; +CEFDINIR300 MG PO; +CEFTRIAXONE1 G1 IV; +Ipratropium Brom3 ML INH; +METRONIDAZOLE500 M1 PO; +OMNICEF300 MG PO; +SODIUM BICARBO650 MG PO
[2018-10-27 11:23] LABS: HEMATOCRIT 36.6 % (37.0-47.0); HEMOGLOBIN 11.5 g/dl (12.0-16.0); MEAN CELL VOLUME 103.7 fl (81.0-99.0); MEAN CORPUSCULAR HGB 32.6 pg (27.0-31.0); MEAN CORPUSCULAR HGB CONC 31.4 g/dl (33.0-37.0); MEAN PLATELET VOLUME 10.7 fl (9.6-12.3); RED BLOOD COUNT 3.53 10*6/uL (4.10-5.10); RED CELL DISTRI WIDTH 14.1 % (0-14.5); WHITE BLOOD COUNT 12.1 10*3/uL (4.8-10.8)
[2018-10-27 11:46] LABS: ALBUMIN 3.5 gm/dl (3.1-4.5); CREATININE 2.72 mg/dL (0.55-1.02); FREE T4 1.35 ng/dl (0.76-1.46); POTASSIUM 4.5 mmol/L (3.5-5.1)
[2018-10-27 11:50] LABS: THYROID STIM HORMONE (HS) 2.71 uIU/ml (0.358-4.75)
== END | disposition home or self-care (01) ==
LOC: LAB 10:52
PROVIDERS: Family Medicine
DX: I12.9 Hypertensive chronic kidney disease with stage 1 through stage 4 chronic kidney disease, or unspecified chronic kidney disease (principal); N18.3 Chronic kidney disease, stage 3 (moderate); E03.9 Hypothyroidism, unspecified; E66.9 Obesity, unspecified; E55.9 Vitamin D deficiency, unspecified; R60.9 Edema, unspecified

== ENCOUNTER 2019-01-07 11:44 | Inpatient (IN) | payer MEDICARE, MEDICAID ==
[~2019-01-07] VITALS: Ht 160 cm; Wt 95.3 kg
[2019-01-07] VITALS (11 sets, daily range): BP systolic 103–131; BP diastolic 44–84
--- NOTE | ~2019-01-07 | PR ---
[place], [place] PROGRESS NOTE NAME: FREDDY RAUSCH [facility] #: [id number] UNIT #: [id number] ROOM: 421 DOCTOR: CESAR PINEDA MD BIRTHDATE: [birth year] DOS: 01/12/2019 SUBJECTIVE: The patient appears to be generally improving, unable to communicate. OBJECTIVE: GENERAL APPEARANCE: Obesity, generalized weakness and inability to communicate. VITAL SIGNS: Blood pressure 120/65, heart rate 99 beats per minute, breathing 19 times per minute, temperature 98 degrees Fahrenheit. HEENT AND NECK: Exam within normal limits. CARDIOVASCULAR SYSTEM: Heart rate is regular in rate and rhythm. S1 and S2 normally audible. LUNGS: Clear to auscultation. ABDOMEN: Soft, nontender. No obvious organomegaly. Bowel sounds are present. EXTREMITIES: Without significant cyanosis or edema. IMPRESSION: 1. The patient has distal ureteral filling defect, needs a urological evaluation, which the urologist not available at [facility]. 2. Acute over chronic kidney disease, treated with hydration. The patient's BUN and creatinine was 27 and 2.4. I will get Nephrology to follow her. 3. Staphylococcus hominis positive blood cultures, thought to be contaminant by ID. 4. Sinus tachycardia related to sepsis, improved with treatment and metoprolol. 5. Recent urinary tract infection and sepsis with Escherichia coli in blood and urine cultures, treated with ceftriaxone. The patient to complete 2-week treatment. CESAR PINEDA MD CM:PNTRANS [id number] CESAR PINEDA MD 01/13/19 0056 interface
--- NOTE | ~2019-01-07 | WRIGHTHP ---
[place], [place] PATIENT HISTORY AND PHYSICAL EXAM NAME: FREDDY RAUSCH [facility] #: [id number] UNIT #: [id number] ROOM: 421 DOCTOR: SAQIB RODRIGUEZ MD BIRTHDATE: [birth year] DOS: 01/08/2019 HISTORY OF PRESENT ILLNESS: This patient is 38 years old. The patient was brought to the Emergency Room by family members from Dr. Luis's office with complaints of abdominal pain. The patient this morning is resting comfortably, does not appear to be in any distress. There have been no complaints from nursing staff overnight. She was tachycardic at the time she came to the Emergency Room. Tachycardia has resolved. She has not had any abdominal pain. She has not had any nausea, any emesis or diarrhea. PAST MEDICAL HISTORY: Significant for: 1. MRDD. 2. History of multiple hospitalizations for UTI and sepsis. 3. Cerebral palsy. 4. Hypothyroidism. 5. Chronic kidney disease. 6. Morbid obesity with a BMI of 45, anemia of chronic disease. MEDICATIONS: She is on are breathing treatments, budesonide, Dexilant, Pepcid, iron, folic acid, levothyroxine, metoprolol, sodium bicarbonate, trazodone. SOCIAL HISTORY: Nonsmoker, does not use any alcohol. PHYSICAL EXAMINATION: GENERAL: She lives at home. A grandmother takes care of her. VITAL SIGNS: Graphic trend shows a pressure of 120/80, pulse of 84, respirations 18, temperature 97.9. LUNGS: Diminished breath sounds. Clear. HEART: Regular. ABDOMEN: Obese, soft. EXTREMITIES: Without any edema. LABORATORY DATA: White cell count on admission was 19,000, has come down to 12,000 this morning. Comprehensive showed glucose 153, BUN 37, creatinine 3.22. This morning, the BUN is 37, creatinine 2.94, which is pretty much her baseline. Lactic acid was 3.6. It is normalized at 1. CT of the abdomen and pelvis was unremarkable except for chronic nephroureteral stents and atrophic kidneys. ASSESSMENT AND PLAN: 1. The patient presents with sepsis, possibly from an underlying urinary tract infection. IV fluids, IV antibiotics have been ordered. We will follow blood cultures, so far it is growing gram-negative bacilli, we do not have the identification yet. 2. Acute kidney injury in a patient with chronic kidney disease, most likely from hypotension causing acute tubular necrosis and hypoperfusion. 3. Mental retardation and developmental disabilities. Continue supportive care. 4. Tachycardia, which is most likely from underlying sepsis. She is already on metoprolol. This has slowed down. [place], [place] PATIENT HISTORY AND PHYSICAL EXAM NAME: FREDDY RAUSCH UNIT #: [id number] ROOM: [facility] DOCTOR: SAQIB RODRIGUEZ MD BIRTHDATE: [birth year] SAQIB RODRIGUEZ MD CM:HISPHYS:PATIENT HISTORY AND PHYSICAL EXAMINATION 9 9 SAQIB RODRIGUEZ MD 01/08/1948 interface
--- NOTE | ~2019-01-07 | CON ---
[place], [place] REPORT OF CONSULTATION NAME: FREDDY RAUSCH UNIT #: [id number] ROOM: 421 DOCTOR: RUBENS SHRESTHA MD BIRTHDATE: [birth year] DOS: 01/10/2019 REASON FOR CONSULTATION: Staph hominis bacteremia. HISTORY OF PRESENT ILLNESS: This is a 38-year-old female who has past medical history of cerebral palsy, minimally responsive, nonverbal, presented with urosepsis as E. coli bacteremia. She had a history of urosepsis, had nephrostomy tubes placed which has been recently removed outside at another hospital and at this time, imaging of her CT abdomen and pelvis without contrast. There is a concern of right mid portion ureter enlargement with concern for intraluminal filling defects. Her blood cultures from 01/07/2019, one set came back positive for Staph hominis and the repeat being negative. She is not receiving any treatment for Staph hominis as well. PAST MEDICAL HISTORY: Significant for CKD, UTIs, GERD, esophageal ulcer, gastritis. PAST SURGICAL HISTORY: Bone marrow transplant, nephrostomy. SOCIAL HISTORY: Nonsmoker, nonalcoholic, no illicit drug use. FAMILY HISTORY: Noncontributory. ALLERGIES: No known drug allergies. HOME MEDICATIONS: Reviewed. REVIEW OF SYSTEMS: Cannot be done because of the patient's mental status. PHYSICAL EXAMINATION: VITAL SIGNS: Stable. GENERAL: The patient is awake, but not alert or responsive. HEENT: Atraumatic, normocephalic. HEART: Regular rate and rhythm. No murmur, rubs or gallops. RESPIRATORY: Clear to auscultation. ABDOMEN: Soft, nontender, nondistended. Bowel sounds present. Obese abdomen. EXTREMITIES: No clubbing or edema. LABORATORY DATA AND IMAGING: Reviewed, mentioned in HPI. ASSESSMENT: 1. Staphylococcus hominis bacteremia contamination. 2. Urinary tract infection with Escherichia coli bacteremia. 3. Chronic kidney disease. 4. Right ureter malfunction. PLAN: At this time, although the primary team is managing the patient's urosepsis with ceftriaxone. She has underlying ureter filling defect and should be evaluated by urologist. For your Staph hominis bacteremia contamination, no need to start antibiotics. Continue to watch her without antibiotics. [place], [place] REPORT OF CONSULTATION NAME: FREDDY RAUSCH UNIT #: [id number] ROOM: 421 DOCTOR: RUBENS SHRESTHA MD BIRTHDATE: [birth year] Recommend ceftriaxone for a total of 14 days through a midline. Thank you for your consult. Please call for any questions. Rubens Shrestha MD CM:CONSTR:REPORT OF CONSULTATION 2135 01/11/19 0203 interface
--- NOTE | ~2019-01-07 | PR ---
[place], [place] PROGRESS NOTE NAME: FREDDY RAUSCH [facility] #: [id number] UNIT #: [id number] ROOM: 421 DOCTOR: CESAR PINEDA MD BIRTHDATE: [birth year] DOS: 01/10/2019 SUBJECTIVE: The patient does not communicate. OBJECTIVE: VITAL SIGNS: Blood pressure 120/70, 17 beats per minute of breathing, heart rate of 81 times per minute, temperature 98.7 degrees Fahrenheit. GENERAL APPEARANCE: The patient is alert and oriented x 3, in no visible distress, Obesity. The patient is unable to communicate. HEENT AND NECK: Exam within normal limits. CARDIOVASCULAR SYSTEM: Heart rate is regular in rate and rhythm. S1 and S2 normally audible. LUNGS: Clear to auscultation. ABDOMEN: Soft, nontender. No obvious organomegaly. Bowel sounds are present. EXTREMITIES: Without significant cyanosis or edema. IMPRESSION: 1. Blood cultures growing Staphylococcus hominis hominis. Infectious Disease specialists consulted for help with further evaluation and management. The patient is presently on IV Rocephin. 2. Acute over chronic kidney disease being treated with hydration with normal saline. 3. MRDD. We are taking bedsore and fall precautions. 4. Sepsis with blood cultures turning positive, getting an ID evaluation. 5. Tachycardia related to sepsis, resolving with treatment. The patient is already on metoprolol. 6. Earlier urine and blood cultures both grew E. coli. CESAR PINEDA MD CM:PNTRANS [phone] CESAR PINEDA MD 01/11/19 0130 interface
--- NOTE | ~2019-01-07 | DS ---
[place], [place] DISCHARGE SUMMARY NAME: FREDDY RAUSCH [facility] #: [id number] UNIT #: [id number] ROOM: 421 DOCTOR: CESAR PINEDA MD BIRTHDATE: [birth year] DOS: 01/13/2019 DISCHARGE DIAGNOSES: 1. Urinary tract infection. 2. Sepsis with Escherichia coli in blood and urine. The patient still needs 10 more days of ceftriaxone at home to complete 2 weeks. 3. Staph hominis contaminant. 4. Chronic kidney disease, stage 4. 5. Mental retardation and developmental disabilities and advanced disability. The patient unable to communicate. 6. The patient still requires outpatient urological evaluation with an urologist for ureteral filling defect. No urologist available at [facility]. 7. Morbid obesity, BMI of 45. 8. Cerebral palsy. 9. Hypothyroidism. HOSPITAL COURSE: The patient was admitted by Dr. Jessenia Coombs with 1. Complaints of abdominal pains and she was later on found to have sepsis with E. coli growing from her urine and blood. She was treated with ceftriaxone and she is to complete a 2-week treatment according to Infectious Disease consult. Antibiotics have been arranged through visiting nurses. 2. Iron deficiency anemia, treated with supplements. 3. Hypothyroidism, replaced with levothyroxine. 4. MRDD and cerebral palsy with advanced disability and obesity. We took bedsore and fall precautions. 5. Chronic primary insomnia, treated with trazodone. 6. Sinus tachycardia, controlled with metoprolol. 7. Chronic kidney disease, stage 4, reevaluated by Dr. Patricio during this visit. The patient to follow up with Dr. Patricio for advanced chronic kidney disease. 8. The patient grew Staphylococcus hominis, which was evaluated by ID and considered to be a contaminant. DISCHARGE MANAGEMENT: IV ceftriaxone 1 gram daily for 10 more days, to be continued until 01/22/2019; MiraLax 17 grams daily; metoprolol 25 mg b.i.d.; sodium bicarbonate 650 mg every 8 hours; trazodone 50 mg at bedtime; Protonix 40 mg daily; levothyroxine 75 mcg daily; Pepcid 20 mg a day; ferrous sulfate 325 mg every other day; folic acid 1 mg daily. Follow up with PCP, Dr. Nathanael Luis, in less than a week. [place], [place] DISCHARGE SUMMARY NAME: FREDDY RAUSCH UNIT #: [id number] ROOM: 421 DOCTOR: EDWIN DIAZ,CESAR Mackay BIRTHDATE: [birth year] CESAR PINEDA MD CM:HARDEEP [id number] CESAR PINEDA MD 01/13/19 1240 interface
--- NOTE | ~2019-01-07 | PR ---
[place], [place] PROGRESS NOTE NAME: FREDDY RAUSCH [facility] #: [id number] UNIT #: [id number] ROOM: 421 DOCTOR: CESAR PINEDA MD BIRTHDATE: [birth year] DOS: 01/11/2019 SUBJECTIVE: The patient is awake, alert, does not communicate. OBJECTIVE: VITAL SIGNS: Blood pressure 114/64, heart rate 84 beats per minute, breathing 18 times per minute, temperature 98 degrees Fahrenheit. GENERAL APPEARANCE: The patient is alert and oriented x 3, in no visible distress. HEENT AND NECK: Exam within normal limits. Obesity and generalized disability. CARDIOVASCULAR SYSTEM: Heart rate is regular in rate and rhythm. S1 and S2 normally audible. LUNGS: Clear to auscultation. ABDOMEN: Soft, nontender. No obvious organomegaly. Bowel sounds are present. EXTREMITIES: Without significant cyanosis or edema. IMPRESSION: 1. The patient with distal ureter filling defect, which needs urological evaluation, but no urologist is available at [facility]. 2. Recent urinary tract infection and sepsis with Escherichia coli in blood and urine being treated with ceftriaxone and we need to complete a 2 week treatment. Home antibiotics need to be arranged on Saturday. 3. Acute over chronic kidney disease, treated with hydration. I will repeat serum electrolytes for tomorrow. 4. Tachycardia related to sepsis, resolved with treatment and metoprolol. 5. Staphylococcus hominis positive blood culture evaluated by ID and considered contaminant. CESAR PINEDA MD CM:PNTRANS [id number] CESAR PINEDA MD 01/11/19 221 interface
--- NOTE | ~2019-01-07 | PR ---
[place], [place] PROGRESS NOTE NAME: FREDDY RAUSCH UNIT #: [id number] ROOM: 421 DOCTOR: SAQIB RODRIGUEZ MD BIRTHDATE: [birth year] DOS: 01/09/2019 SUBJECTIVE: The patient is back to her baseline, responding to call, talking. OBJECTIVE: VITAL SIGNS: Graphic trend shows a pressure 112/72, pulse of 108, respirations 20, temperature 97.9. LUNGS: Clear. HEART: Regular. ABDOMEN: Obese, soft. EXTREMITIES: Without any edema. LABORATORY DATA: Urine culture and blood cultures both grew E. coli. Had one blood culture also done on 01/07/2019 at 12:31, which showed gram-positive cocci, but at the same time another blood culture was drawn at 12:33, which grew E. coli, so the gram-positive most likely is a contaminant. ASSESSMENT AND PLAN: 1. Escherichia coli sepsis, on IV antibiotics. We will repeat the blood culture and see whether anything else grows. She is on IV Rocephin. We will discontinue IV fluids since her appetite is fair. 2. Chronic kidney disease with acute kidney injury, which is improving with IV fluids. We will repeat labs again tomorrow. 3. Lack of IV access. We were unable to put a PICC line in because she has poor access. Instead, the patient did have an IUD put in by Dr. Owen. SAQIB RODRIGUEZ MD CM:PNTRANS [id number] SAQIB RODRIGUEZ MD 01/10/19 0219 interface
[~2019-01-07 11:44] MED LIST changes: -BUDESONIDE0.5 MG/2 M NEB; -CEFTRIAXONE1 G1 IV; -Ipratropium Brom3 ML INH; -OMNICEF300 MG PO; -SODIUM BICARBO650 MG PO
[2019-01-07 12:24] LABS: BILIRUBIN NEGATIVE (NEGATIVE); BLOOD 3+ (NEGATIVE); CLARITY CLOUDY (CLEAR); COLOR YELLOW (YELLOW); GLUCOSE NEGATIVE (NEGATIVE); KETONE NEGATIVE (NEGATIVE); LEUKO ESTERASE 2+ (NEGATIVE); NITRITE POSITIVE (NEGATIVE); UROBILINOGEN 0.2 E.U./dl (0.2-1.0)
[2019-01-07 12:45] LABS: HEMATOCRIT 38.9 % (37.0-47.0); MEAN CELL VOLUME 105.4 fl (81.0-99.0); MEAN CORPUSCULAR HGB 32.5 pg (27.0-31.0); MEAN CORPUSCULAR HGB CONC 30.8 g/dl (33.0-37.0); MEAN PLATELET VOLUME 11.1 fl (9.6-12.3); PLATELET COUNT AUTOMATED 212 10*3/uL (130-400); RED BLOOD COUNT 3.69 10*6/uL (4.10-5.10); RED CELL DISTRI WIDTH 13.6 % (0-14.5); WHITE BLOOD COUNT 19.3 10*3/uL (4.8-10.8)
[2019-01-07 13:02] LABS: ALBUMIN 3.5 gm/dl (3.1-4.5); ALKALINE PHOSPHATASE 123 U/L (45-117); BUN 37 mg/dl (7-24); CHLORIDE 108 mmol/L (98-107); CREATININE 3.22 mg/dL (0.55-1.02); LIPASE 287 U/L (73-393); POTASSIUM 4.6 mmol/L (3.5-5.1); SGOT/AST 17 IU/L (3-35); SGPT/ALT 26 U/L (12-78); SODIUM 140 mmol/L (136-145); TOTAL PROTEIN 8.5 gm/dL (6.4-8.2)
[2019-01-07 13:02] LABS: BACTERIA 3+; RBC TNTC rbc/hpf (0-2); WBC TNTC wbc/hpf (0-5)
[2019-01-07 13:03] LABS: PLATELET SUFFICIENCY NORMAL (NORMAL); TOTAL CELLS COUNTED 100 #CELLS; TOXIC GRANULATION SLIGHT
[2019-01-07 13:04] LABS: B-hCG (QUALITATIVE) NEGATIVE (NEGATIVE)
--- NOTE | 2019-01-07 14:10 | NUR ---
PATIENT KEEPS MOTIONING FOR FOOD. EXPLAINED TO FAMILY SHE IS NPO UNTIL CT RESULTS
--- NOTE | 2019-01-07 16:10 | NUR ---
A 38, admitted to , under the services of SAQIB Milian MD with a diagnosis of UTI,SEPSIS AND CRF. Chief complaint is UTI,ABDOMINAL PAIN. Patient arrived via bed from ER. Monitor applied. Initial assessment completed. Vital signs taken and recorded. SAQIB MILIAN MD notified of admission to the unit. Orders received. See assessment for past medical history, medications and allergies. Patient and/or family oriented to unit. [facility] visitation policy reviewed. Clothing/patient valuable form completed. CHELI THOMPSON
--- NOTE | 2019-01-07 16:48 | NUR ---
HOME MEDS RECONCILED AT BEDSIDE WITH POA AND PILL BOTTLES. MEDS SENT HOME WITH POA.NOTIFIED DR RODRIGUEZ. ORDERS RECIEVED.
[2019-01-07] MEDS ORDERED: Ipratropium Brom3 ML INH (16:55)
[2019-01-07] MEDS ORDERED: SODIUM BICARBO650 MG PO (16:56)
[2019-01-07] MEDS ORDERED: BUDESONIDE0.5 MG/2 M NEB (16:57)
--- NOTE | 2019-01-07 17:49 | NUR ---
NOTIFIED DR RODRIGUEZ PT WAS TACHY AND HR 140"S. PT EATING AT THIS TIME.NO DISTRESS NOTED.ORDERS RECIEVED.
[2019-01-08] VITALS (7 sets, daily range): BP systolic 117–143; BP diastolic 67–96
[2019-01-08 07:21] LABS: BASO % 0.3 % (0.0-1.0); EOS # 0.1 10*3/uL (0.0-0.4); EOS % 1.1 % (1.0-4.0); HEMOGLOBIN 10.1 g/dl (12.0-16.0); LYMPH # 1.1 10*3/uL (1.3-4.4); LYMPH % 9.5 % (27.0-41.0); MEAN CELL VOLUME 103.9 fl (81.0-99.0); MEAN CORPUSCULAR HGB 32.8 pg (27.0-31.0); MEAN CORPUSCULAR HGB CONC 31.6 g/dl (33.0-37.0); MEAN PLATELET VOLUME 11.3 fl (9.6-12.3); MONO # 0.6 10*3/uL (0.1-1.0); MONO % 4.8 % (3.0-9.0); NEUT # 10.1 10*3/uL (2.3-7.9); NEUT % 83.7 % (47.0-73.0); PLATELET COUNT AUTOMATED 169 10*3/uL (130-400); RED BLOOD COUNT 3.08 10*6/uL (4.10-5.10); RED CELL DISTRI WIDTH 13.7 % (0-14.5)
--- NOTE | 2019-01-08 08:00 | NUR ---
Automobile Service Station Attendant in to see patient. No family is at the bedside. Patient is non-verbal.
[2019-01-08 08:07] LABS: CREATININE 2.94 mg/dL (0.55-1.02); POTASSIUM 5.2 mmol/L (3.5-5.1)
--- NOTE | 2019-01-08 09:55 | NUR ---
DR RODRIGUEZ CALLED WITH BLOOD CULTURE RESULTS
--- NOTE | 2019-01-08 11:37 | NUR ---
DR BLAS CAME IN AFTER DR RODRIGUEZ REQUESTED LINE PLACEMENT. PATIENT REMIANS NPO UNTIL AFTER LINE IS PLACED
--- NOTE | 2019-01-08 15:04 | NUR ---
Loss Control Representative in to see patient. No family at the bedside. Patient is non-verbal. Per staff and medical record patient lives at home with her grandmother and has all needed equipment. Will follow up at a later time. Discharge plan undecided at this time.
--- NOTE | 2019-01-08 16:00 | NUR ---
House Painter in to see patient. Grandmother is at the bedside. She lives at home with her grandmother. She needs max assistance with her ADLs. She gets around either br crawling or in a wheelchair. Discussed short term SNF and home health care services. Grandmother refuses SNF. Patient has grandmother believes the name is [facility] for 3 hours on MWF. When medically stable she will be discharged to home with the resumption of her home health aides.
--- NOTE | 2019-01-08 18:30 | NUR ---
TO SURGERY FOR MLC PLACEMENT - GARY IS IN WAITING ROOM ON 3. DR BLAS SPOKE WITH FAMILY
--- NOTE | 2019-01-08 19:26 | NUR ---
PATIENT REMAINS OFF FLOOR IN SURGERY
--- NOTE | 2019-01-08 19:57 | NUR ---
REPORT FROM SURGERY AT THIS TIME
--- NOTE | 2019-01-08 21:24 | NUR ---
DR RODRIGUEZ AWARE OF PATIENT VOMITTING AND C/O ABDOMINAL PAIN. STATES TO ORDER ZOFRAN 8MG Q6 PRN
--- NOTE | 2019-01-08 22:07 | NUR ---
PATIENT REFUSING PO MEDICATIONS AT THIS TIME. ZOFRAN GIVEN FOR NAUSEA AND EMESIS X1. WILL MONITOR. BED ALARM ON, CALL LIGHT IN REACH
[2019-01-09] VITALS (8 sets, daily range): BP systolic 94–121; BP diastolic 46–82
--- NOTE | 2019-01-09 04:12 | NUR ---
24 HR chart check completed.
--- NOTE | 2019-01-09 08:16 | NUR ---
DR RODRIGUEZ MADE AWARE OF BLOOD CULTURE RESULTS OF E.COLI
--- NOTE | 2019-01-09 09:00 | NUR ---
Community Health Nursing Director in to see patient. She is non-verbal. When medically stable she will be discharged to home with her grandmother. Grandmother would like a new wheelchair at home as patient's chair is getting rough. Dr. Coombs notified.
--- NOTE | 2019-01-09 20:21 | NUR ---
PATIENT TURNS HEAD WHEN ENCOURAGED TO TAKE MEDICATIONS. REFUSING AT THIS TIME
[2019-01-10] VITALS: BP 106/80
--- NOTE | 2019-01-10 05:36 | NUR ---
PATIENT RESTING IN BED WITH EYES CLOSED. RESPS EASY AND REGULAR. BED IN LOWEST POSITION, BED ALARM ON, CALL LIGHT IN REACH
--- NOTE | 2019-01-10 08:35 | NUR ---
CALL PLACED TO DR PINEDA REGARDING +BLOOD CULTURE. AWAITING CALLBACK.
[2019-01-10 08:52] VITALS: BP 117/48
[2019-01-10 11:29] VITALS: BP 109/62
--- NOTE | 2019-01-10 13:08 | NUR ---
ANSWERING SERVICE WAS NOTIFIED OF DR. FADY WATTS. RESPONSE OF NOTIFICATION WAS OK I WILL GIVE HER THE MESSAGE. VALERIE BEEBE
--- NOTE | 2019-01-10 13:21 | NUR ---
DR SHRESTHA RETURNED PHONECALL AND GAVE NEW ORDERS FOR A CBC TODAY BUT NO CHANGE IN ANTIBIOTICS AT THIS TIME.
[2019-01-10 14:14] LABS: BASO % 0.5 % (0.0-1.0); EOS # 0.2 10*3/uL (0.0-0.4); EOS % 2.3 % (1.0-4.0); HEMATOCRIT 31.1 % (37.0-47.0); HEMOGLOBIN 9.5 g/dl (12.0-16.0); LYMPH # 1.8 10*3/uL (1.3-4.4); LYMPH % 20.8 % (27.0-41.0); MEAN CELL VOLUME 106.1 fl (81.0-99.0); MEAN CORPUSCULAR HGB 32.4 pg (27.0-31.0); MEAN CORPUSCULAR HGB CONC 30.5 g/dl (33.0-37.0); MEAN PLATELET VOLUME 10.9 fl (9.6-12.3); MONO # 0.6 10*3/uL (0.1-1.0); NEUT % 68.7 % (47.0-73.0); PLATELET COUNT AUTOMATED 182 10*3/uL (130-400); RED BLOOD COUNT 2.93 10*6/uL (4.10-5.10); RED CELL DISTRI WIDTH 13.7 % (0-14.5); WHITE BLOOD COUNT 8.8 10*3/uL (4.8-10.8)
[2019-01-10 16:40] VITALS: BP 120/70
--- NOTE | 2019-01-10 21:42 | NUR ---
PT SITTING UP IN BED, HOB ELEVATED. PT ALERT AND PLEASANT WITH STAFF. RESPIRATIONS EASY. ASSESSMENT COMPLETE. RIJ FLUSHING/GOOD BLOOD RETURN. DRESSING C/D/I. PT REFUSES HS MEDICATIONS AFTER SEVERAL ATTEMPTS MADE. WILL ATTEMPT AT A LATER TIME. NO S/S OF DISTRESS NOTED AT THIS TIME. ALL SAFETY MEASURES IN PLACE. CALL LIGHT IN REACH.
[2019-01-10 21:45] VITALS: BP 130/72
[2019-01-11] VITALS: BP 97/62
--- NOTE | 2019-01-11 02:51 | NUR ---
PT SLEEPING IN BED, RESPIRATIONS EASY AND UNLABORED. NO S/S OF DISTRESS NOTED. CALL LIGHT IN REACH.
[2019-01-11 08:00] VITALS: BP 114/64
[2019-01-11 12:00] VITALS: BP 101/51
[2019-01-11 16:00] VITALS: BP 106/45
--- NOTE | 2019-01-11 19:50 | NUR ---
PT RESTING IN BED. GRANDMA AT HER SIDE. REQUESTING NIGHT MEDICATION GIVEN AT THIS TIME. PT TOLERATED WELL. NO SIGNS OF ACUTE DISTRESS NOTED. CALL LIGHT IN REACH. SEE SHIFT ASSESSMENT.
[2019-01-11 20:00] VITALS: BP 106/72
--- NOTE | 2019-01-11 20:35 | NUR ---
PT RESTING IN BED. MEDICATED WITH TYLENOL PER [facility] REQUEST FOR GENERALIZED PAIN, PT MOANS ON AND OFF. CALL LIGHT IN REACH. BED ALARM ON.
--- NOTE | 2019-01-11 21:10 | NUR ---
PT RESTING IN BED WITH EYES CLOSED. MEDICATION SEEMS TO BE EFFECTIVE. CALL LIGHT IN REACH.
--- NOTE | 2019-01-11 21:36 | NUR ---
24 HR chart check completed.
--- NOTE | 2019-01-11 22:05 | NUR ---
SLEEPING IN BED. RESP-EASY AND REGULAR. CALL LIGHT IN REACH.
[2019-01-12] VITALS: BP 103/75
--- NOTE | 2019-01-12 00:15 | NUR ---
PT SLEEPING IN BED, RESP-EASY AND REGULAR. CALL LIGHT IN REACH. SEE SHIFT ASSESSMENT.
--- NOTE | 2019-01-12 04:00 | NUR ---
PT SLEEPING IN BED. RESP-EASY AND REGULAR. CALL LIGHT IN REACH.
--- NOTE | 2019-01-12 06:00 | NUR ---
TOLERATED ROUTINE MED WITH NO PROBLEM. CALL LIGHT IN REACH. BED ALARM ON.
[2019-01-12 06:49] LABS: BASO # 0.1 10*3/uL (0.0-0.1); BASO % 0.6 % (0.0-1.0); EOS # 0.3 10*3/uL (0.0-0.4); EOS % 2.6 % (1.0-4.0); HEMATOCRIT 32.8 % (37.0-47.0); HEMOGLOBIN 10.5 g/dl (12.0-16.0); LYMPH % 19.3 % (27.0-41.0); MEAN CORPUSCULAR HGB 32.2 pg (27.0-31.0); MEAN PLATELET VOLUME 11.4 fl (9.6-12.3); MONO # 0.5 10*3/uL (0.1-1.0); MONO % 4.7 % (3.0-9.0); NEUT # 7.6 10*3/uL (2.3-7.9); PLATELET COUNT AUTOMATED 148 10*3/uL (130-400); RED BLOOD COUNT 3.26 10*6/uL (4.10-5.10); RED CELL DISTRI WIDTH 13.6 % (0-14.5); WHITE BLOOD COUNT 10.6 10*3/uL (4.8-10.8)
[2019-01-12 06:51] LABS: CREATININE 2.43 mg/dL (0.55-1.02)
[2019-01-12 06:59] LABS: MEAN CELL VOLUME 100.6 fl (81.0-99.0)
[2019-01-12 08:00] VITALS: BP 105/57
--- NOTE | 2019-01-12 09:00 | NUR ---
Musculoskeletal Physician in to see patient. Discussed home IV antibiotics with patient's grandmother who is sitting at the beside. When provided with a list of agencies she chose [facility]. Awaiting antibiotic prescription from ID. Dr. Lux informed. When medically stable she will be discharged to home with [facility] services.
[2019-01-12 12:00] VITALS: BP 120/65
--- NOTE | 2019-01-12 14:45 | NUR ---
DR BARKER NOTIFIED OF CONSULT.
[2019-01-12 16:00] VITALS: BP 103/75
[2019-01-12 18:30] LABS: URINE CREATININE RANDOM 55.5 mg/dL
[2019-01-12 20:00] VITALS: BP 113/75
--- NOTE | 2019-01-12 20:00 | NUR ---
PT RESTING IN BED, REPOSITIONED IN BED. RESP-EASY AND REGULAR. CALL LIGHT IN REACH. TOLERATING IVF WITH NO PROBLEM.
--- NOTE | 2019-01-12 22:00 | NUR ---
TOLERATED ROUTINE MED WITH NO PROBLEM. REPOSITIONED AND CLEANED UP FOR INCONTINENCE OF URINE. CALL LIGHT IN REACH. BED ALARM ON.
[2019-01-13] VITALS: BP 112/66
--- NOTE | 2019-01-13 00:20 | NUR ---
SLEEPING IN BED, AWAKENS EASILY. REPOSITIONED IN BED. CALL LIGHT IN REACH. BED ALARM ON.
--- NOTE | 2019-01-13 04:00 | NUR ---
SLEEPING IN BED. RESP-EASY AND REGULAR. CALL LIGHT IN REACH.
[2019-01-13 06:21] LABS: CREATININE 2.27 mg/dL (0.55-1.02); PHOSPHOROUS 4.4 mg/dL (2.5-4.9)
--- NOTE | 2019-01-13 07:36 | NUR ---
Notified resident with ID, Dr. Gorman, a prescription is needed for patient to be discharged on home IV antibiotics. Awaiting return call.
[2019-01-13 08:00] VITALS: BP 118/70
[2019-01-13] MEDS ORDERED: CEFTRIAXONE1 G1 IV (09:09)
--- NOTE | 2019-01-13 10:34 | NUR ---
Faxed [facility] 1 GM IV to [facility]. Awaiting return call.
--- NOTE | 2019-01-13 10:54 | NUR ---
Spoke to Dr. Gorman regarding grandmother concerned about patient going home with RIJ MLC as patient does crawl around on the floor and home and pulls herself up into her wheelchair. Also MLC can only be in for [address] Gorman to speak to Dr. Sanders. Nursing keypunch operators supervisor and nurse notified.
[2019-01-13] MEDS ORDERED: OMNICEF300 MG PO (11:02)
--- NOTE | 2019-01-13 11:10 | NUR ---
Dr. Gorman has changed IV antibiotic to po. Nurse notified. Home health care now not needed as patient will not be getting home IV antibiotics per grandmother. Dr. Lux notified. Spoke to Alyssia at [facility] regarding cancellation of IV antibiotic.
--- NOTE | 2019-01-13 11:20 | NUR ---
CALL PLACED TO DR BARKER AT THIS TIME REGARDING IF OK FOR PT TO BE DISCHARGED, AWAITING CALL BACK.
--- NOTE | 2019-01-13 11:24 | NUR ---
PT MAY BE D/C PER DR BARKER.
--- NOTE | 2019-01-13 13:51 | NUR ---
Discharge instructions reviewed with patient/family. Patient receptive and verbalizes understanding. Follow-up care arranged. Written instructions given to patient/family. Multilumen cath removed from pt's RIJ as well as hep lock in left shoulder, campus monitor removed. Pt transported to [facility] via wheelchair. BRADY BOYER
== END 2019-01-13 13:53 | disposition home or self-care (01) | DRG 871 ==
LOC: ED 11:44 → EDHOLD 15:08 → 4E 15:08
PROVIDERS: Internal Medicine; Internal Medicine Nephrology; Physician Assistant; ADMIT Internal Medicine
PROC: 05HY33Z Insertion of Infusion Device into Upper Vein, Percutaneous Approach (ICD-10-PCS; principal; 2019-01-08)
PROC: B51VZZA Fluoroscopy of Other Veins, Guidance (ICD-10-PCS; principal; 2019-01-08)
DX: A41.51 Sepsis due to Escherichia coli [E. coli] (principal); N17.0 Acute kidney failure with tubular necrosis; N39.0 Urinary tract infection, site not specified; N18.4 Chronic kidney disease, stage 4 (severe); R65.20 Severe sepsis without septic shock; E66.01 Morbid (severe) obesity due to excess calories; E03.9 Hypothyroidism, unspecified; G80.9 Cerebral palsy, unspecified; F79 Unspecified intellectual disabilities; D50.9 Iron deficiency anemia, unspecified; F51.04 Psychophysiologic insomnia; N29 Other disorders of kidney and ureter in diseases classified elsewhere; N20.0 Calculus of kidney; N28.89 Other specified disorders of kidney and ureter; K21.9 Gastro-esophageal reflux disease without esophagitis; E87.8 Other disorders of electrolyte and fluid balance, not elsewhere classified; R73.9 Hyperglycemia, unspecified; A08.4 Viral intestinal infection, unspecified; J40 Bronchitis, not specified as acute or chronic; E83.39 Other disorders of phosphorus metabolism; E83.41 Hypermagnesemia; E78.1 Pure hyperglyceridemia; Z87.442 Personal history of urinary calculi; Z87.440 Personal history of urinary (tract) infections; Z83.3 Family history of diabetes mellitus; Z82.49 Family history of ischemic heart disease and other diseases of the circulatory system; Z84.89 Family history of other specified conditions; Z79.899 Other long term (current) drug therapy; Z68.37 Body mass index [BMI] 37.0-37.9, adult

== ENCOUNTER → 2019-05-01 | Outpatient (CLI) | payer MEDICARE, MEDICAID ==
[~2019-05-01] MED LIST changes: +BUDESONIDE0.5 MG/2 M NEB; +CEFTRIAXONE1 G1 IV; +Ipratropium Brom3 ML INH; +OMNICEF300 MG PO; +SODIUM BICARBO650 MG PO
== END | disposition home or self-care (01) ==
LOC: US 04-07 15:30
DX: N83.202 Unspecified ovarian cyst, left side (principal)

== ENCOUNTER → 2019-05-07 | Outpatient (CLI) | payer MEDICARE, MEDICAID ==
[2019-05-07 15:18] LABS: HEMATOCRIT 37.6 % (37.0-47.0); HEMOGLOBIN 11.5 g/dl (12.0-16.0); MEAN CELL VOLUME 103.9 fl (81.0-99.0); MEAN CORPUSCULAR HGB 31.8 pg (27.0-31.0); MEAN CORPUSCULAR HGB CONC 30.6 g/dl (33.0-37.0); RED BLOOD COUNT 3.62 10*6/uL (4.10-5.10); RED CELL DISTRI WIDTH 13.7 % (0-14.5); WHITE BLOOD COUNT 10.7 10*3/uL (4.8-10.8)
[2019-05-07 15:34] LABS: ALBUMIN 3.4 gm/dl (3.1-4.5); CREATININE 2.71 mg/dL (0.55-1.02); FREE T4 1.3 ng/dl (0.76-1.46); PHOSPHOROUS 2.5 mg/dL (2.5-4.9); TOTAL PROTEIN 7.9 gm/dL (6.4-8.2)
[2019-05-07 15:39] LABS: THYROID STIM HORMONE (HS) 2.69 uIU/ml (0.358-4.75)
== END | disposition home or self-care (01) ==
LOC: LAB 14:15
PROVIDERS: Family Medicine
DX: I12.9 Hypertensive chronic kidney disease with stage 1 through stage 4 chronic kidney disease, or unspecified chronic kidney disease (principal); N18.3 Chronic kidney disease, stage 3 (moderate); N20.0 Calculus of kidney; G80.3 Athetoid cerebral palsy; E03.9 Hypothyroidism, unspecified; E55.9 Vitamin D deficiency, unspecified; D64.9 Anemia, unspecified; F07.89 Other personality and behavioral disorders due to known physiological condition

== ENCOUNTER 2019-08-09 09:55 | Inpatient (IN) | payer MEDICARE, MEDICAID ==
[~2019-08-09] VITALS: Ht 152.4 cm; Wt 83.7 kg
[2019-08-09 09:56] VITALS: BP 105/72
[2019-08-09 10:27] LABS: BASO % 0.1 % (0.0-1.0); EOS # 0.1 10*3/uL (0.0-0.4); HEMATOCRIT 32.7 % (37.0-47.0); HEMOGLOBIN 10.3 g/dl (12.0-16.0); LYMPH # 0.4 10*3/uL (1.3-4.4); LYMPH % 5.3 % (27.0-41.0); MEAN CELL VOLUME 101.6 fl (81.0-99.0); MEAN CORPUSCULAR HGB CONC 31.5 g/dl (33.0-37.0); MEAN PLATELET VOLUME 10.8 fl (9.6-12.3); MONO # 0.3 10*3/uL (0.1-1.0); MONO % 3.6 % (3.0-9.0); NEUT # 7.2 10*3/uL (2.3-7.9); NEUT % 89.5 % (47.0-73.0); PLATELET COUNT AUTOMATED 192 10*3/uL (130-400); RED BLOOD COUNT 3.22 10*6/uL (4.10-5.10); WHITE BLOOD COUNT 8.1 10*3/uL (4.8-10.8)
[2019-08-09 10:40] LABS: ACT PARTIAL THROMBO TIME 27.9 SECONDS (20.0-32.1)
[2019-08-09 10:46] LABS: ALBUMIN 3.1 gm/dl (3.1-4.5); ALKALINE PHOSPHATASE 116 U/L (45-117); BUN 31 mg/dl (7-24); CHLORIDE 105 mmol/L (98-107); CREATININE 3.11 mg/dL (0.55-1.02); POTASSIUM 3.8 mmol/L (3.5-5.1); SGOT/AST 9 IU/L (3-35); SGPT/ALT 23 U/L (12-78); SODIUM 139 mmol/L (136-145); TOTAL PROTEIN 7.7 gm/dL (6.4-8.2)
[2019-08-09 10:47] LABS: BACTERIA 2+; BILIRUBIN NEGATIVE (NEGATIVE); BLOOD 3+ (NEGATIVE); CLARITY CLOUDY (CLEAR); COLOR YELLOW (YELLOW); GLUCOSE NEGATIVE (NEGATIVE); KETONE NEGATIVE (NEGATIVE); LEUKO ESTERASE 2+ (NEGATIVE); NITRITE NEGATIVE (NEGATIVE); RBC TNTC rbc/hpf (0-2); SPECIFIC GRAVITY 1.015 (1.005-1.030); UROBILINOGEN 0.2 E.U./dl (0.2-1.0); WBC 16-20 wbc/hpf (0-5)
[2019-08-09 10:49] LABS: TROPONIN I < 0.015 ng/ml (<0.045)
[2019-08-09 11:38] VITALS: BP 113/93
--- NOTE | 2019-08-09 11:38 | NUR ---
A 38, admitted to , under the services of Dr. EDWIN DIAZ,CESAR Mackay with a diagnosis of CKD STAGE 4, SIRS. Chief complaint is WHEEZE, COUGH AND COLD SXS, FEVER. Patient arrived via ambulance from ER. Monitor applied. Initial assessment completed. Vital signs taken and recorded. DR. EDWIN DIAZ,CESAR Mackay notified of admission to the unit. Orders received. See assessment for past medical history, medications and allergies. Patient and/or family oriented to unit. [facility] visitation policy reviewed. Clothing/patient valuable form completed. MARK KRUSE
--- NOTE | 2019-08-09 12:25 | NUR ---
MED REC UPDATED VIA CLAIM HISTORY.
--- NOTE | 2019-08-09 12:27 | NUR ---
ATTEMPTED TO CALL FAMILY PT CAME TO FLOOR ALONE. MAN ANSWERED AND SAID HE WOULD HAVE THE GRANDMOTHER OR AUNT CALL ME BACK.
[2019-08-09 16:00] VITALS: BP 112/76
[2019-08-09 20:00] VITALS: BP 122/75
[2019-08-10] VITALS: BP 119/76
--- NOTE | 2019-08-10 02:46 | NUR ---
PATIENT RESTING IN BED. NO SIGNS OR SYMPTOMS OF DISTRESS. HOB ELEVATED. SIDE RAILS UP. PATIENT SMILING AND POINTING TO CHOCOLATE MILK WHEN IN ROOM. SOME CHOCOLATE MILK GIVEN. BED LOCKED AND IN LOWEST POSITION. CALL LIGHT IN REACH. RESPIRATIONS ARE EASY, REGULAR, NO DISTRESS. WILL CONTINUE TO MONITOR.
[2019-08-10 06:09] VITALS: BP 118/64
[2019-08-10 08:00] VITALS: BP 118/64
--- NOTE | 2019-08-10 09:00 | NUR ---
Water/Wastewater Engineer in to see patient. No family is at the bedside. She is being fed breakfast by the patient attendant. She is minimally verbal. Per staff and medical record patient lives at home with her grandmother and has all needed equipment. She lives at home with her grandmother. She needs max assistance with her ADLs. She gets around either br crawling or in a wheelchair. She has [facility] for 3 hours on MWF. When medically stable she will be discharged to home with the resumption of her home health aides.
[2019-08-10 12:00] VITALS: BP 116/69
[2019-08-10 16:00] VITALS: BP 132/69
[2019-08-10 20:00] VITALS: BP 111/68
[2019-08-11] VITALS: BP 114/77
[2019-08-11 08:00] VITALS: BP 108/54
--- NOTE | 2019-08-11 09:00 | NUR ---
Chief Dietitian in to see patient. She will return home with her grandmother when medically stable with the resumption of her [facility].
[2019-08-11 12:00] VITALS: BP 138/76
[2019-08-11 16:00] VITALS: BP 112/56; BP 95/65
--- NOTE | 2019-08-11 19:50 | NUR ---
IN PT ROOM AT THIS TIME TO COMPLETE ASSESSMENT. PT IS LAYING ON HER RIGHT SIDE AND IS PLEASANT AND COOPERATIVE. SHE STATES NO COMPLAINTS AT THIS TIME AND APPEARS ASYMPTOMATIC. EXPLAINED HOW TO WORK CALL LIGHT IF NEED BE, CALL LIGHT WITHIN REACH, WILL CONTINUE TO MONITOR
[2019-08-11 20:00] VITALS: BP 117/86
--- NOTE | 2019-08-11 23:38 | NUR ---
PATIENT IS RESTING IN BED WITH EASY AND REGULAR RESPERS ON ROOM AIR. ASSESSMENT IS COMPLETE WITH NO C/O OR S/S OF DISTRESS NOTED AT THIS TIME. BED IS LOW, LOCKED, ALARMED, AND CALL LIGHT IS WITHIN REACH. WILL CONTINUE TO MONITOR, SEE SHIFT ASSESSMENT.
[2019-08-12] VITALS: BP 103/68
--- NOTE | 2019-08-12 01:28 | NUR ---
24 HR. CHART CHECK COMPLETE.
[2019-08-12 08:00] VITALS: BP 119/72
[2019-08-12 12:00] VITALS: BP 120/76
[2019-08-12 16:00] VITALS: BP 122/68
[2019-08-12 20:00] VITALS: BP 127/80
[2019-08-13] VITALS: BP 109/81
--- NOTE | 2019-08-13 01:45 | NUR ---
24 HR chart check completed.
[2019-08-13 08:00] VITALS: BP 112/65
--- NOTE | 2019-08-13 11:00 | NUR ---
Discussed discharge planning with Dr. Lux. He states he was going to discharge the patient to home today but her lungs are still wheezy. When medically stable she will be discharged to home with the resumption of her home health aides.
--- NOTE | 2019-08-13 11:50 | NUR ---
DR SHAH NOTIFIED OF CONSULT.
[2019-08-13 12:00] VITALS: BP 110/58
--- NOTE | 2019-08-13 12:00 | NUR ---
GRAMNDMOTHER AGREEABLE/AWARE OF TRANSFER TO 5E.
[2019-08-13 20:00] VITALS: BP 132/78
[2019-08-14] VITALS: BP 110/53
--- NOTE | 2019-08-14 02:10 | NUR ---
24 HR chart check completed.
[2019-08-14 08:00] VITALS: BP 123/77
--- NOTE | 2019-08-14 09:00 | NUR ---
Driver Education Instructor in to see patient. She will return home with her grandmother when medically stable with the resumption of her [facility].
[2019-08-14 12:00] VITALS: BP 137/82
--- NOTE | 2019-08-14 14:56 | NUR ---
Contacted because patients grandmother was concerned about loss of appetite and requested ensure to supplement. Also spoke about grandmother stating "she turned blood red she was choking so hard and had to spit her water out." Per physician consult speech. See new orders.
[2019-08-14 16:00] VITALS: BP 135/82
[2019-08-14 20:00] VITALS: BP 131/90
[2019-08-15] VITALS: BP 115/70
--- NOTE | 2019-08-15 04:35 | NUR ---
24 HR chart check completed.
[2019-08-15 08:00] VITALS: BP 120/73
[2019-08-15 12:00] VITALS: BP 136/88
[2019-08-15 16:00] VITALS: BP 137/94
[2019-08-15 20:00] VITALS: BP 129/77
--- NOTE | 2019-08-15 20:30 | NUR ---
DR RODRIGUEZ NOTIFIED OF EMESIS AND POSSIBLE ASPIRATION W/ FEVER/TACHYCARDIA/RHONCHI. NEW ORDERS RECEIVED.
--- NOTE | 2019-08-15 20:40 | NUR ---
MEDICATED WITH IV ZOFRAN ORDERED FOR VOMITTING.
[2019-08-15 20:42] LABS: ARTERIAL BLOOD GAS PH 7.293 (7.35-7.45)
[2019-08-15 20:43] LABS: ABG BASE EXCESS -5.9 mmol/L (-2.0-2.0)
[2019-08-16] VITALS: BP 138/64
--- NOTE | 2019-08-16 00:49 | NUR ---
PT CALMER WITHOUT ANY RESPIRATORY DISTRESS NOTED. HR 101.
--- NOTE | 2019-08-16 04:00 | NUR ---
Patient resting quietly with no c/o discomfort. Respirations easy and regular. Vital signs stable. No overt distress. LIBRA WOODS
[2019-08-16 06:48] LABS: BASO % 0.2 % (0.0-1.0); HEMATOCRIT 39.2 % (37.0-47.0); HEMOGLOBIN 11.7 g/dl (12.0-16.0); LYMPH % 6.8 % (27.0-41.0); MEAN CORPUSCULAR HGB CONC 29.8 g/dl (33.0-37.0); MEAN PLATELET VOLUME 12.3 fl (9.6-12.3); MONO # 0.2 10*3/uL (0.1-1.0); MONO % 1.6 % (3.0-9.0); NEUT # 12.6 10*3/uL (2.3-7.9); NEUT % 89.9 % (47.0-73.0); PLATELET COUNT AUTOMATED 202 10*3/uL (130-400); RED BLOOD COUNT 3.77 10*6/uL (4.10-5.10); RED CELL DISTRI WIDTH 14.3 % (0-14.5)
[2019-08-16 07:03] LABS: ALBUMIN 2.8 gm/dl (3.1-4.5); CREATININE 2.68 mg/dL (0.55-1.02); TOTAL PROTEIN 7.7 gm/dL (6.4-8.2)
[2019-08-16 07:07] LABS: POTASSIUM 6.5 mmol/L (3.5-5.1)
--- NOTE | 2019-08-16 07:44 | NUR ---
GRANDMOTHER NOTIFIED TRANSFER TO ICU.
[2019-08-16 08:00] VITALS: BP 134/77
--- NOTE | 2019-08-16 09:19 | NUR ---
DR RODRIGUEZ CALLED WITH BEDSIDE GLUCOSE RESULTS. OK TO DO BLOOD SUGARS EVERY 2 HOURS. MAINTAIN INSULIN DRIP AT 2 UNITS/HR. BMP AT 1400 THEN CALL RESULTS
--- NOTE | 2019-08-16 09:29 | NUR ---
[facility] SWAB SENT PER POLICY
--- NOTE | 2019-08-16 10:47 | NUR ---
Shift chart check completed.
--- NOTE | 2019-08-16 11:20 | NUR ---
PATIENT HAD A SMALL EMESIS OF KAYEXELATE/CHOCOLATE MILK.. REFUSED TO EAT FOOD EXCEPT WILLING TO TAKE LIQUIDS
[2019-08-16 12:00] VITALS: BP 136/86
--- NOTE | 2019-08-16 12:19 | NUR ---
STAT REFLUX ORDERED AFTER METER READING HIGH. NO REPEAT DONE - INSULIN DRIP AT 2 UNITS/HR. GROIN REDDENED AFTER INCONT LARGE LOOSE BM AND HYDROGUARD APPLIED
--- NOTE | 2019-08-16 13:02 | NUR ---
MEDICATED WITH ZOFRAN FOR POSSIBLE UPSET STOMACH D/T STOMACH CRAMPS FROM KAYEXELATE & FREQ BELCHING
[2019-08-16 13:26] LABS: CREATININE 2.81 mg/dL (0.55-1.02)
[2019-08-16 13:27] LABS: POTASSIUM 5.2 mmol/L (3.5-5.1)
--- NOTE | 2019-08-16 14:00 | NUR ---
DR RODRIGUEZ CALLED WITH BMP & ELEVATED GLUCOSE LEVELS. INSULIN DRIP TO REMAIN AT 2 UNITS/HR & NS TO REMAIN AT 100cc/hr. REPEAT BMP AT 8pm TONIGHT. OK TO CHANGE DIET TO NO CONC SWEETS. INFORMED THAT THE PATIENT HAS HAD 2 LARGE LIQ BM'S SINCE KAYEXELATE GIVEN.
[2019-08-16 16:00] VITALS: BP 90/71
--- NOTE | 2019-08-16 16:20 | NUR ---
PATIENT SLEEPING - RESP EASY & NONLABORED - NC2L IN USE - INSULIN & NSS INFUSING VIA ASYMPTOMATIC SITE. GLUCOSE LEVELS IMPROVING.
--- NOTE | 2019-08-16 17:23 | NUR ---
SLEEPING - RESP EASY & NONLABORED
[2019-08-16 20:00] VITALS: BP 113/65
[2019-08-16 20:16] LABS: CREATININE 1.9 mg/dL (0.55-1.02)
[2019-08-16 20:26] LABS: POTASSIUM 3.9 mmol/L (3.5-5.1)
--- NOTE | 2019-08-16 20:45 | NUR ---
CALLED WITH LAB RESULTS. NEW ORDERS RECEIVED. INSULIN GTT TURNED OFF AT THIS TIME.
[2019-08-17] VITALS: BP 105/72
[2019-08-17 04:00] VITALS: BP 110/56
[2019-08-17 04:48] LABS: BASO % 0.1 % (0.0-1.0); HEMATOCRIT 33.6 % (37.0-47.0); HEMOGLOBIN 10.4 g/dl (12.0-16.0); LYMPH % 10.5 % (27.0-41.0); MEAN CELL VOLUME 102.4 fl (81.0-99.0); MEAN CORPUSCULAR HGB 31.7 pg (27.0-31.0); MEAN PLATELET VOLUME 11.6 fl (9.6-12.3); MONO # 0.5 10*3/uL (0.1-1.0); MONO % 2.7 % (3.0-9.0); NEUT # 16.5 10*3/uL (2.3-7.9); NEUT % 85.8 % (47.0-73.0); PLATELET COUNT AUTOMATED 171 10*3/uL (130-400); RED BLOOD COUNT 3.28 10*6/uL (4.10-5.10); RED CELL DISTRI WIDTH 14.2 % (0-14.5); WHITE BLOOD COUNT 19.2 10*3/uL (4.8-10.8)
[2019-08-17 05:04] LABS: ALBUMIN 2.4 gm/dl (3.1-4.5); CREATININE 2.25 mg/dL (0.55-1.02); POTASSIUM 4.5 mmol/L (3.5-5.1); TOTAL PROTEIN 6.2 gm/dL (6.4-8.2)
--- NOTE | 2019-08-17 06:12 | NUR ---
INCONTINENT OF VERY LARGE AMOUNT URINE AND SMALL AMOUNT STOOL,. RADHIKA CARE DONE AND ADULT DIAPER CHANGED. RESPOSITIONED ON BACK. IV FLUIDS CONT. NO DISTRESS NOTED. CONDITION GUARDED.
[2019-08-17 08:00] VITALS: BP 110/63
--- NOTE | 2019-08-17 08:13 | NUR ---
Doctor, This patient is ordered Merrem 1gm IV q8h. Her creatinine clearance is only 25. Pharmacy recommends decreasing this dose to 500mg IV q12h. Thank you, Pharmacy
--- NOTE | 2019-08-17 09:00 | NUR ---
Roll Contour Grinder in to see patient. She will return home with her grandmother when medically stable with the resumption of her [facility].
--- NOTE | 2019-08-17 09:22 | NUR ---
RETURNED FROM CT - PT REFUSED TO EAT
--- NOTE | 2019-08-17 11:32 | NUR ---
SPEECH PATHOLOGY Orders for swallowing evaluation received however since that time patient has been transferred to ICCU. New orders will need to be received for assessment to be completed. MORGAN MORROW MS [facility]-DEVELOPMENT SPEC
[2019-08-17 12:00] VITALS: BP 121/55
[2019-08-17 16:00] VITALS: BP 116/62
--- NOTE | 2019-08-17 16:07 | NUR ---
IV to ZACHARY & left breast removed after starting to have red lines. #20 accucath placed in BUCK by surgical nurse after unable to thread. Patient tolerated fair
--- NOTE | 2019-08-17 19:56 | NUR ---
PT. SLEEPING, AROUSES EASILY FOR ASSESSMENT. HEP LOCK IN LA ASYMPT. LUNGS HAVE WHEEZES AND RHONCHI BILAT. MOIST HOUSEHOLD APPLIANCE INSTALLER COUGH NOTED. ABDOMEN SOFTLY DISTENDED AND NORMO. EDEMA VS OBESITY. RESP. EASY AND REG NO DISTRESS. PULSE OX REMAINS AT 99% ON 2L NC. ARGENIS HERRERA RN
[2019-08-17 20:00] VITALS: BP 140/81
[2019-08-18] VITALS (10 sets, daily range): BP systolic 88–123; BP diastolic 46–85
--- NOTE | 2019-08-18 08:00 | NUR ---
TAKEN DOWN FOR BRONCH VIA BED.
--- NOTE | 2019-08-18 12:32 | NUR ---
SPEECH PATHOLOGY Orders for MBS received and chart review completed. This was ordered to r/o aspiration. Reports indicate patient has been choking and refusing to eat. Patient was very pleasant at start of encounter but not able to follow any commands. When feeding was attempted, patient clamped her mouth shut and turned her head away. She then became combative and attempting to hit. Test was terminated at this point. Patient's nurse was informed. MORGAN MORROW [facility]-LOFT WORKER APPRENTICE
--- NOTE | 2019-08-18 15:00 | NUR ---
TRANSFERRED TO ROOM 532 VIA BED. REPORT GIVEN TO MARK
[2019-08-19] VITALS: BP 107/80
--- NOTE | 2019-08-19 01:54 | NUR ---
24 HOUR CHART CHECK COMPLETE.
--- NOTE | 2019-08-19 09:00 | NUR ---
Bulk Plant Supervisor in to see patient. Nurse in room. Patient is alert and repeating bye. She will return home with her grandmother when medically stable with the resumption of her [facility] MWF for 3 hours each day.
[2019-08-19 12:00] VITALS: BP 103/84
[2019-08-19 12:09] LABS: ACID FAST SPEC PROCESSING Concentration (.)
[2019-08-19 16:00] VITALS: BP 122/60
[2019-08-19 20:00] VITALS: BP 84/47
[2019-08-20] VITALS: BP 94/50
[2019-08-20 08:00] VITALS: BP 111/75
--- NOTE | 2019-08-20 08:30 | NUR ---
Surgical Training Specialist in to see patient. She will return home with her grandmother when medically stable with the resumption of her [facility].
--- NOTE | 2019-08-20 09:59 | NUR ---
DR PINEDA INQUIRED WHY BARIUM SWOLLOW HAD NOT BEEN COMPLETED. PHONED XRAY, SATATED SHE REFUSED, CLENCHING MOUTH, ABSOLUTELY REFUSED. DR. PINEDA NOTIFIED
[2019-08-20 12:00] VITALS: BP 128/74
[2019-08-20 16:00] VITALS: BP 114/71
--- NOTE | 2019-08-20 16:00 | NUR ---
Awaiting report from Ana Paula Wang Rn. Pt is alert. Nonverbal. BSG was 150 at this time. No coverage required. Lungs diminished with exp wheezes noted. Moist cough noted. Abdomen soft normoactive bs x4. Abdomen obese. No signs of pain noted.
[2019-08-20 20:00] VITALS: BP 116/74
[2019-08-21] VITALS: BP 115/64
--- NOTE | 2019-08-21 04:34 | NUR ---
24 HR chart check completed.
[2019-08-21 08:00] VITALS: BP 109/55
[2019-08-21 08:14] LABS: BASO % 0.1 % (0.0-1.0); EOS # 0.2 10*3/uL (0.0-0.4); EOS % 1.9 % (1.0-4.0); HEMATOCRIT 38.5 % (37.0-47.0); HEMOGLOBIN 11.6 g/dl (12.0-16.0); LYMPH # 1.6 10*3/uL (1.3-4.4); LYMPH % 12.5 % (27.0-41.0); MEAN CELL VOLUME 103.8 fl (81.0-99.0); MEAN CORPUSCULAR HGB 31.3 pg (27.0-31.0); MEAN CORPUSCULAR HGB CONC 30.1 g/dl (33.0-37.0); MEAN PLATELET VOLUME 11.7 fl (9.6-12.3); MONO # 0.6 10*3/uL (0.1-1.0); MONO % 4.5 % (3.0-9.0); NEUT # 9.9 10*3/uL (2.3-7.9); NEUT % 80.4 % (47.0-73.0); PLATELET COUNT AUTOMATED 205 10*3/uL (130-400); RED BLOOD COUNT 3.71 10*6/uL (4.10-5.10); RED CELL DISTRI WIDTH 14.8 % (0-14.5); WHITE BLOOD COUNT 12.4 10*3/uL (4.8-10.8)
[2019-08-21 08:43] LABS: ALBUMIN 2.7 gm/dl (3.1-4.5); CREATININE 2.06 mg/dL (0.55-1.02); POTASSIUM 3.5 mmol/L (3.5-5.1); TOTAL PROTEIN 7.5 gm/dL (6.4-8.2)
--- NOTE | 2019-08-21 11:00 | NUR ---
Latin American Studies Professor in to see patient. She will return home with her grandmother when medically stable with the resumption of her [facility].
--- NOTE | 2019-08-21 11:58 | NUR ---
Noah requested that pt have something for headache. I took tylenol to room and attempted to give to pt but after placing medication in mouth she would not swallow it eventually pulling out of mouth. Medication disposed of. Will continue to monitor.
[2019-08-21 12:00] VITALS: BP 91/60
--- NOTE | 2019-08-21 13:20 | NUR ---
REBECCA met with gma of patient at . REBECCA provided educaitonal informaiton on the hopsice benefit and services. Gma expressed that she wanted to disuss with her family their thoughts on hospice and then possibly decide to seek their services. REBECCA will continue to follow and provide and support needed.
[2019-08-21 16:00] VITALS: BP 110/56
--- NOTE | 2019-08-21 19:45 | NUR ---
24 HR chart check completed.
[2019-08-21 20:00] VITALS: BP 111/73
[2019-08-22] VITALS: BP 113/68
[2019-08-22 07:04] LABS: BASO % 0.2 % (0.0-1.0); EOS # 0.3 10*3/uL (0.0-0.4); EOS % 2.2 % (1.0-4.0); HEMATOCRIT 36.9 % (37.0-47.0); HEMOGLOBIN 11.4 g/dl (12.0-16.0); LYMPH # 1.8 10*3/uL (1.3-4.4); LYMPH % 16.1 % (27.0-41.0); MEAN CELL VOLUME 103.1 fl (81.0-99.0); MEAN CORPUSCULAR HGB 31.8 pg (27.0-31.0); MEAN CORPUSCULAR HGB CONC 30.9 g/dl (33.0-37.0); MEAN PLATELET VOLUME 12.1 fl (9.6-12.3); MONO # 0.8 10*3/uL (0.1-1.0); MONO % 6.7 % (3.0-9.0); NEUT # 8.3 10*3/uL (2.3-7.9); NEUT % 74.2 % (47.0-73.0); PLATELET COUNT AUTOMATED 190 10*3/uL (130-400); RED BLOOD COUNT 3.58 10*6/uL (4.10-5.10); RED CELL DISTRI WIDTH 15.2 % (0-14.5); WHITE BLOOD COUNT 11.2 10*3/uL (4.8-10.8)
[2019-08-22 07:21] LABS: ALBUMIN 2.8 gm/dl (3.1-4.5); CREATININE 2.25 mg/dL (0.55-1.02); POTASSIUM 3.5 mmol/L (3.5-5.1); TOTAL PROTEIN 7.4 gm/dL (6.4-8.2)
[2019-08-22 08:00] VITALS: BP 85/60
--- NOTE | 2019-08-22 10:42 | NUR ---
Contacted Dr. Lux to let him know that patients grandmother decided on home hospice. See new orders.
--- NOTE | 2019-08-22 11:06 | NUR ---
Left a message with [facility] regarding new consult.
--- NOTE | 2019-08-22 11:37 | NUR ---
Spoke to Tonia from [facility]. Haresh is to get in touch with patients grandmother Carly on Saturday afternoon. Carly requested being contacted after 1200 because she will be in [place] during the morning. Karina number is [phone]
[2019-08-22 12:00] VITALS: BP 114/76
[2019-08-22 16:00] VITALS: BP 117/89
--- NOTE | 2019-08-22 19:00 | NUR ---
ARRIVED ON SHIFT, INTRODUCED TO PATIENT,BED IN LOW POSITION, WHEEL LOCKES ENGAGED, CALL LIGHT WITHIN REACH, NO NEEDS AT THIS TIME, WHITE BOARD UPDATED.
[2019-08-22 20:00] VITALS: BP 122/67
--- NOTE | 2019-08-22 20:06 | NUR ---
24 HR chart check completed.
[2019-08-23] VITALS: BP 113/59
[2019-08-23 06:30] LABS: EOS # 0.3 10*3/uL (0.0-0.4); EOS % 3.4 % (1.0-4.0); HEMATOCRIT 34.6 % (37.0-47.0); HEMOGLOBIN 10.5 g/dl (12.0-16.0); LYMPH # 1.9 10*3/uL (1.3-4.4); LYMPH % 22.7 % (27.0-41.0); MEAN CELL VOLUME 104.5 fl (81.0-99.0); MEAN CORPUSCULAR HGB 31.7 pg (27.0-31.0); MEAN CORPUSCULAR HGB CONC 30.3 g/dl (33.0-37.0); MEAN PLATELET VOLUME 12.2 fl (9.6-12.3); MONO # 0.7 10*3/uL (0.1-1.0); MONO % 8.6 % (3.0-9.0); NEUT # 5.3 10*3/uL (2.3-7.9); NEUT % 64.7 % (47.0-73.0); PLATELET COUNT AUTOMATED 168 10*3/uL (130-400); RED BLOOD COUNT 3.31 10*6/uL (4.10-5.10); RED CELL DISTRI WIDTH 15.3 % (0-14.5); WHITE BLOOD COUNT 8.1 10*3/uL (4.8-10.8)
[2019-08-23 07:30] LABS: ALBUMIN 2.6 gm/dl (3.1-4.5); CREATININE 2.47 mg/dL (0.55-1.02); POTASSIUM 3.8 mmol/L (3.5-5.1); TOTAL PROTEIN 6.7 gm/dL (6.4-8.2)
[2019-08-23 08:00] VITALS: BP 118/65
[2019-08-23 12:00] VITALS: BP 106/61
[2019-08-23 16:00] VITALS: BP 117/60
[2019-08-23 20:00] VITALS: BP 118/73
--- NOTE | 2019-08-23 20:23 | NUR ---
24 HR chart check completed.
--- NOTE | 2019-08-23 21:56 | NUR ---
IV in left arm appears to be infiltrated. Site is bruised with edema.
--- NOTE | 2019-08-23 22:30 | NUR ---
IV started left upper arm with #22 angiocath after 3 attempts. The IV site was prepped with alcohol swab. Heparin lock attached. Sterile dressing applied. Patient tolerated precedure well. Procedure performed according to [facility] policy & procedure. ISRAEL MARSHALL
--- NOTE | 2019-08-23 23:00 | NUR ---
ASSUMED CARE FOR THIS PT AT THIS TIME. PT AWAKE IN BED. NO S/S OF DISTRESS NOTED. GENERALIZED NON PITTING EDEMA NOTED. ANTERIOR WHEEZING NOTED W/DIMINISHED LUNG SOUNDS T/O. DRY TRAFFIC ANALYSIS TECHNICIAN COUGH NOTED. BED IN LOW POSITION W/WHEELS LOCKED AND ALARM ON. CALL LIGHT IN REACH.
[2019-08-24] VITALS: BP 103/55
[2019-08-24 06:24] VITALS: BP 118/58
--- NOTE | 2019-08-24 07:20 | NUR ---
ARRIVED ON SHIFT, INTRODUCED TO PATIENT, SHE IS ALERT AND AWAKE, DIFFICULTY IN MAKING NEEDS NOTED, BED IN LOW POSITION, BED IN LOW LOCKED POSITION, SIDE RAILS UP X 4, WHITE BOARD UPDATED.
[2019-08-24 08:00] VITALS: BP 106/62
--- NOTE | 2019-08-24 10:14 | NUR ---
Shift chart check completed.
--- NOTE | 2019-08-24 11:02 | NUR ---
Discussed discharge planning with Dr. Lux. Plan is to discharge patient to home with [facility] today. maintenance worker following.
[2019-08-24 12:00] VITALS: BP 110/68
[2019-08-24] MEDS ORDERED: ATROPINE SULFATE2 M2 PO (14:13)
[2019-08-24] MEDS ORDERED: ATIVAN2 M1 PO (14:13)
[2019-08-24] MEDS ORDERED: MORPHINE S100 MG/5 M PO (14:13)
--- NOTE | 2019-08-24 14:38 | NUR ---
REBECCA setup transport for patient to discharge home with Hospice. Nurse set to arrive at the home between 4 and 5. Patient will be tranported home via [facility] @ [phone].
--- NOTE | 2019-08-24 16:08 | NUR ---
Discharge instructions reviewed with AMBULANCE, NO FAMILY AVAILABLE. Follow-up care arranged, [facility] TO MEET WITH FAMILY AT HOME Written INSTRUCTIONS GIVEN TO WIRE WEAVER. IV REMOVED, TAKEN OUT BY [facility] VIA STRETCHER. JOSY FERMIN
== END 2019-08-24 06:08 | disposition hospice, home (50) | DRG 177 ==
LOC: ED 09:55 → EDHOLD 11:04 → ICCU 11:04 → 4E 11:04 → 5E 11:04 → 4E 11:25 → 5E 08-13 16:21 → ICCU 08-16 07:16 → 5E 08-18 13:31
PROVIDERS: Emergency Medicine; Internal Medicine; Internal Medicine Critical Care Medicine; ADMIT Internal Medicine
PROC: 0BC18ZZ Extirpation of Matter from Trachea, Via Natural or Artificial Opening Endoscopic (ICD-10-PCS; principal; 2019-08-18)
PROC: 0BC88ZZ Extirpation of Matter from Left Upper Lobe Bronchus, Via Natural or Artificial Opening Endoscopic (ICD-10-PCS; principal; 2019-08-18)
PROC: 0BC58ZZ Extirpation of Matter from Right Middle Lobe Bronchus, Via Natural or Artificial Opening Endoscopic (ICD-10-PCS; principal; 2019-08-18)
PROC: 0BC98ZZ Extirpation of Matter from Lingula Bronchus, Via Natural or Artificial Opening Endoscopic (ICD-10-PCS; principal; 2019-08-18)
PROC: 0BCB8ZZ Extirpation of Matter from Left Lower Lobe Bronchus, Via Natural or Artificial Opening Endoscopic (ICD-10-PCS; principal; 2019-08-18)
PROC: 0BC38ZZ Extirpation of Matter from Right Main Bronchus, Via Natural or Artificial Opening Endoscopic (ICD-10-PCS; principal; 2019-08-18)
PROC: 0BC68ZZ Extirpation of Matter from Right Lower Lobe Bronchus, Via Natural or Artificial Opening Endoscopic (ICD-10-PCS; principal; 2019-08-18)
PROC: 0BC48ZZ Extirpation of Matter from Right Upper Lobe Bronchus, Via Natural or Artificial Opening Endoscopic (ICD-10-PCS; principal; 2019-08-18)
PROC: 0BC78ZZ Extirpation of Matter from Left Main Bronchus, Via Natural or Artificial Opening Endoscopic (ICD-10-PCS; principal; 2019-08-18)
DX: J69.0 Pneumonitis due to inhalation of food and vomit (principal); J96.21 Acute and chronic respiratory failure with hypoxia; N18.4 Chronic kidney disease, stage 4 (severe); J45.41 Moderate persistent asthma with (acute) exacerbation; I13.0 Hypertensive heart and chronic kidney disease with heart failure and stage 1 through stage 4 chronic kidney disease, or unspecified chronic kidney disease; J44.1 Chronic obstructive pulmonary disease with (acute) exacerbation; N17.9 Acute kidney failure, unspecified; I50.9 Heart failure, unspecified; E03.9 Hypothyroidism, unspecified; E66.01 Morbid (severe) obesity due to excess calories; K21.0 Gastro-esophageal reflux disease with esophagitis; G80.9 Cerebral palsy, unspecified; Z66 Do not resuscitate; R62.7 Adult failure to thrive; Z51.5 Encounter for palliative care; F51.01 Primary insomnia; J98.09 Other diseases of bronchus, not elsewhere classified; F79 Unspecified intellectual disabilities; K59.09 Other constipation; E87.70 Fluid overload, unspecified; E11.22 Type 2 diabetes mellitus with diabetic chronic kidney disease; E11.65 Type 2 diabetes mellitus with hyperglycemia; T38.0X5A Adverse effect of glucocorticoids and synthetic analogues, initial encounter; Y92.89 Other specified places as the place of occurrence of the external cause; Z79.899 Other long term (current) drug therapy; Z83.3 Family history of diabetes mellitus; Z82.49 Family history of ischemic heart disease and other diseases of the circulatory system; Z68.37 Body mass index [BMI] 37.0-37.9, adult

== ENCOUNTER → 2019-08-09 | Outpatient (CLI) | payer MEDICARE, MEDICAID ==
[~2019-08-09] MED LIST changes: -LEVOTHYROXIN0.075 M1 PO; +SYNTHROID,LEVO75 MCG PO
[2019-08-11 09:09] LABS: CANCER ANTIGEN (CA) 125 11.1 U/mL (0.0-38.1); FOLLICLE STIMULATING HORMONE 26.7 mIU/mL (.)
== END | disposition home or self-care (01) ==
LOC: LAB 10:19
PROVIDERS: Family Medicine
DX: N91.0 Primary amenorrhea (principal); R19.09 Other intra-abdominal and pelvic swelling, mass and lump; I10 Essential (primary) hypertension; G89.3 Neoplasm related pain (acute) (chronic); F03.90 Unspecified dementia, unspecified severity, without behavioral disturbance, psychotic disturbance, mood disturbance, and anxiety

== ENCOUNTER → 2019-12-14 | Outpatient (CLI) | payer MEDICARE, MEDICAID ==
[~2019-12-14] MED LIST changes: +ATIVAN2 M1 PO; +ATROPINE SULFATE2 M2 PO; +MORPHINE S100 MG/5 M PO
[2019-12-14 10:58] LABS: HEMATOCRIT 40.4 % (37.0-47.0); MEAN CELL VOLUME 101.5 fl (81.0-99.0); MEAN CORPUSCULAR HGB 31.4 pg (27.0-31.0); MEAN CORPUSCULAR HGB CONC 30.9 g/dl (33.0-37.0); MEAN PLATELET VOLUME 11.4 fl (9.6-12.3); RED BLOOD COUNT 3.98 10*6/uL (4.10-5.10); RED CELL DISTRI WIDTH 15.2 % (0-14.5); WHITE BLOOD COUNT 11.5 10*3/uL (4.8-10.8)
[2019-12-14 11:23] LABS: ALBUMIN 3.6 gm/dl (3.1-4.5); CREATININE 2.99 mg/dL (0.55-1.02); POTASSIUM 4.1 mmol/L (3.5-5.1)
[2019-12-14 11:32] LABS: FREE T4 1.49 ng/dl (0.76-1.46); THYROID STIM HORMONE (HS) 3.76 uIU/ml (0.358-4.75); TOTAL PROTEIN 8.6 gm/dL (6.4-8.2)
== END | disposition home or self-care (01) ==
LOC: LAB 10:10
PROVIDERS: Nurse Practitioner Family
DX: I12.9 Hypertensive chronic kidney disease with stage 1 through stage 4 chronic kidney disease, or unspecified chronic kidney disease (principal); N18.9 Chronic kidney disease, unspecified; D64.9 Anemia, unspecified; E03.9 Hypothyroidism, unspecified; E55.9 Vitamin D deficiency, unspecified

== ENCOUNTER 2020-02-12 13:39 | Inpatient (IN) | payer MEDICARE, MEDICAID ==
[~2020-02-12] VITALS: Ht 142.2 cm; Wt 82.7 kg
[~2020-02-12 13:39] MED LIST changes: -BUMETANIDE1 MG PO; -KEFLEX500 M1 PO
[2020-02-12 13:50] VITALS: BP 112/74
[2020-02-12 14:32] LABS: BASO # 0.1 10*3/uL (0.0-0.1); BASO % 0.4 % (0.0-1.0); EOS # 0.3 10*3/uL (0.0-0.4); EOS % 2.3 % (1.0-4.0); HEMATOCRIT 37.1 % (37.0-47.0); LYMPH % 17.4 % (27.0-41.0); MEAN CELL VOLUME 97.9 fl (81.0-99.0); MEAN CORPUSCULAR HGB 31.1 pg (27.0-31.0); MEAN CORPUSCULAR HGB CONC 31.8 g/dl (33.0-37.0); MEAN PLATELET VOLUME 11.8 fl (9.6-12.3); MONO # 0.4 10*3/uL (0.1-1.0); MONO % 3.6 % (3.0-9.0); NEUT # 8.8 10*3/uL (2.3-7.9); NEUT % 76.1 % (47.0-73.0); PLATELET COUNT AUTOMATED 209 10*3/uL (130-400); RED BLOOD COUNT 3.79 10*6/uL (4.10-5.10); RED CELL DISTRI WIDTH 13.8 % (0-14.5); WHITE BLOOD COUNT 11.6 10*3/uL (4.8-10.8)
[2020-02-12 14:48] LABS: ALBUMIN 3.4 gm/dl (3.1-4.5); CREATININE 3.02 mg/dL (0.55-1.02); POTASSIUM 4.7 mmol/L (3.5-5.1); TOTAL PROTEIN 7.9 gm/dL (6.4-8.2)
--- NOTE | 2020-02-12 15:00 | NUR ---
PT. RESTING IN BED. APPEARS TO BE IN NO DISTRESS. WILL CONT TO MONITOR. GRANDMOTHER AT BEDSIDE.
--- NOTE | 2020-02-12 16:00 | NUR ---
PT. RESTING IN BED, NO DISTRESS NOTED. WILL CONT TO MONITOR. CALL LIGHT IN REACH. GRANDMOTHER AT BEDSIDE.
[2020-02-12 17:00] VITALS: BP 117/75
--- NOTE | 2020-02-12 17:42 | NUR ---
PT. RESTING IN BED, NO DISTRESS NOTED. WILL CONT TO MONITOR. CALL LIGHT IN REACH.
[2020-02-12 18:00] VITALS: BP 123/58
--- NOTE | 2020-02-12 18:00 | NUR ---
A 39, admitted to 5E, under the services of Dr. EDWIN DIAZ,CESAR Mackay with a diagnosis of HYPERGLYCEMIA. Chief complaint is BSG 692. Patient arrived via ambulatory from ER. Monitor applied. Initial assessment completed. Vital signs taken and recorded. DR. EDWIN DIAZ,CESAR Mackay notified of admission to the unit. Orders received. See assessment for past medical history, medications and allergies. Patient and/or family oriented to unit. [facility] visitation policy reviewed. Clothing/patient valuable form completed. MARK KRUSE
[2020-02-12] MEDS ORDERED: NATURE'S BLEND F1 MG PO (18:24)
[2020-02-12] MEDS ORDERED: KEFLEX500 M1 PO (18:25)
[2020-02-12] MEDS ORDERED: FEROSUL325 MG PO (18:27)
[2020-02-12] MEDS ORDERED: BUMETANIDE1 MG PO (18:28)
--- NOTE | 2020-02-12 18:56 | NUR ---
INFORMED OF CONSULT. SAID SHE WOULD PULL UP HER CHART AT HOME AND REVIEW.
[2020-02-12 20:00] VITALS: BP 118/77
[2020-02-13] VITALS: BP 108/70
[2020-02-13 06:08] LABS: ALBUMIN 3.4 gm/dl (3.1-4.5); CREATININE 2.55 mg/dL (0.55-1.02); POTASSIUM 4.3 mmol/L (3.5-5.1); TOTAL PROTEIN 7.1 gm/dL (6.4-8.2)
--- NOTE | 2020-02-13 06:30 | NUR ---
PATIENT REFUSED TO TAKE MEDICATIONS ON SEVERAL ATTEMPTS. KEPT MPUTH CLOSED AND MOVED HEAD AWAY FROM NURSE.
[2020-02-13 07:02] LABS: BASO % 0.4 % (0.0-1.0); EOS # 0.3 10*3/uL (0.0-0.4); EOS % 2.8 % (1.0-4.0); HEMATOCRIT 37.9 % (37.0-47.0); LYMPH # 1.7 10*3/uL (1.3-4.4); LYMPH % 16.7 % (27.0-41.0); MEAN CELL VOLUME 98.2 fl (81.0-99.0); MEAN CORPUSCULAR HGB 31.6 pg (27.0-31.0); MEAN CORPUSCULAR HGB CONC 32.2 g/dl (33.0-37.0); MONO # 0.4 10*3/uL (0.1-1.0); MONO % 3.6 % (3.0-9.0); NEUT # 7.8 10*3/uL (2.3-7.9); NEUT % 76.2 % (47.0-73.0); PLATELET COUNT AUTOMATED 172 10*3/uL (130-400); RED BLOOD COUNT 3.86 10*6/uL (4.10-5.10); RED CELL DISTRI WIDTH 13.9 % (0-14.5); WHITE BLOOD COUNT 10.2 10*3/uL (4.8-10.8)
[2020-02-13 08:20] VITALS: BP 110/70
--- NOTE | 2020-02-13 08:29 | NUR ---
case management visits with patient, patient is non verbal, case management called patient's grandmother reguarding discharge needs, grandmother stated patient lives with her, she is currently at home under [facility] and will resume their services when she is discharged. she also has aids Saturday, Saturday and Saturday that were set up by the hospice company. Grandmother stated patient has everything she needs at home at this time, case management will follow
--- NOTE | 2020-02-13 08:40 | NUR ---
PATIENT SPIT OUT ALL OF AM MEDS WHEN ATTEMPT MADE TO GIVE THEM. WILL REATTEMPT LATER. PT ATE SMALL AMOUNT OF BREAKFSAT WITH ASSIST.
--- NOTE | 2020-02-13 10:45 | NUR ---
PATIENT'S GRANDMOTHER HERE & APPROVED TO COME TO PATIENT'S ROOM. MEDICATIONS ABLE TO BE GIVEN WITH GRANDMOTHER PRESENT.
[2020-02-13 13:08] VITALS: BP 132/90
--- NOTE | 2020-02-13 15:00 | NUR ---
DR. PINEDA HERE TO SEE PATIENT, AWARE UNABLE TO COLLECT URINE DUE TO PATIENT INCONTINENT. HE GAVE OKAY TO STRAIGHT CATH FOR URINES ORDERED
--- NOTE | 2020-02-13 16:00 | NUR ---
STRAIGHT CATH FOR URINE SAMPLE, URINE DARK YELLOW, CLOUDY. PT TOLERATED FAIR. PT GRANDMOTHER AT BEDSIDE.
[2020-02-13 16:01] VITALS: BP 120/78
[2020-02-13 16:34] LABS: BILIRUBIN NEGATIVE; BLOOD 3+ (NEGATIVE); CLARITY TURBID (CLEAR); COLOR YELLOW (YELLOW); GLUCOSE 3+; KETONE NEGATIVE; LEUKO ESTERASE 3+ (NEGATIVE); NITRITE NEGATIVE (NEGATIVE); PH 5.5 (4.5-8.0); UROBILINOGEN 0.2 E.U./dl (0.0-1.0)
[2020-02-13 16:40] LABS: BACTERIA 2+; EPITHELIAL CELLS 0-2; MUCOUS TRACE; RBC TNTC rbc/hpf (0-2); WBC TNTC wbc/hpf (0-5); YEAST 4+
[2020-02-13 20:00] VITALS: BP 108/63
--- NOTE | 2020-02-13 21:10 | NUR ---
PATIENT IS WITHDRAWN, IS REFUSING MEDICATIONS. WILL NOT INTEREACT WITH NURSE, ONLY STATES "MOM"
[2020-02-14] VITALS: BP 109/60
[2020-02-14 08:00] VITALS: BP 103/55
--- NOTE | 2020-02-14 11:20 | NUR ---
PATIENT LYING IN BED, AWAKE, ALERT. NO SIGNS OR SYMPTOMS OF DISTRESS NOTED. CALL LIGHT IS WITHIN REACH.
[2020-02-14 12:00] VITALS: BP 119/84
--- NOTE | 2020-02-14 14:31 | NUR ---
NOTIFIED THAT PATIENT HAS 2 LARGE EMESES TODAY AFTER EATING. ORDER OBTAINED FOR IV ZOFRAN. MEDICATED AT THIS TIME. WILL MONITOR FOR EFFECTIVENESS
--- NOTE | 2020-02-14 15:31 | NUR ---
PATIENT APPEARS TO BE COMFORTABLE AT THIS TIME. ZOFRAN APPEARS TO HAVE BEEN EFFECTIVE.
[2020-02-14 16:00] VITALS: BP 123/68
[2020-02-14 20:00] VITALS: BP 115/62
--- NOTE | 2020-02-14 21:30 | NUR ---
SPOKE TO GRANDMOTHER MINDY, INFORMED THAT PATIENT HAS CLAMED DOWN SINCE AFTERNOON AND ID READY FOR BED. PATIENT IS STILL REFUSING MEDICATIONS AFTER MULTIPLE ATTEMPS. GRANDMOTHER STATED OK AND THAT SHE WILL BE HERE TOMORROW
[2020-02-15] VITALS: BP 97/56
[2020-02-15 06:24] LABS: CREATININE 2.37 mg/dL (0.55-1.02); POTASSIUM 4.5 mmol/L (3.5-5.1)
[2020-02-15 06:32] LABS: BASO # 0.1 10*3/uL (0.0-0.1); BASO % 0.5 % (0.0-1.0); EOS # 0.3 10*3/uL (0.0-0.4); EOS % 2.9 % (1.0-4.0); HEMATOCRIT 39.6 % (37.0-47.0); LYMPH # 1.9 10*3/uL (1.3-4.4); LYMPH % 19.9 % (27.0-41.0); MEAN CORPUSCULAR HGB 30.9 pg (27.0-31.0); MEAN CORPUSCULAR HGB CONC 30.6 g/dl (33.0-37.0); MEAN PLATELET VOLUME 11.7 fl (9.6-12.3); MONO # 0.5 10*3/uL (0.1-1.0); MONO % 4.8 % (3.0-9.0); NEUT # 6.7 10*3/uL (2.3-7.9); NEUT % 71.5 % (47.0-73.0); RED BLOOD COUNT 3.92 10*6/uL (4.10-5.10); RED CELL DISTRI WIDTH 14.5 % (0-14.5); WHITE BLOOD COUNT 9.4 10*3/uL (4.8-10.8)
--- NOTE | 2020-02-15 07:09 | NUR ---
OFF FLOOR FOR RENAL ULTRASOUND.
[2020-02-15 07:10] LABS: PLATELET COUNT AUTOMATED 224 10*3/uL (130-400)
--- NOTE | 2020-02-15 07:25 | NUR ---
BACK TO ROOM FROM ULTRASOUND.
[2020-02-15 08:00] VITALS: BP 120/59
--- NOTE | 2020-02-15 09:35 | NUR ---
REFUSING AM MEDS AT THIS TIME AFTER MULTIPLE ATTEMPTS. VERY POOR APPETITE THIS AM. PA AT BEDSIDE ATTEMPTING TO FEED PT. PT DRINKING MILK BUT REFUSING TO EAT SOLIDS.
--- NOTE | 2020-02-15 09:45 | NUR ---
Spoke to aunt, Bree, no home needs at this time. Will continue to follow for any discharge planning needs.
[2020-02-15] MEDS ORDERED: VICTOZA 2-0.6 MG/0.1 SC (15:02)
[2020-02-15] MEDS ORDERED: GLIMEPIRIDE4 M1 PO (15:02)
[2020-02-15 16:00] VITALS: BP 105/81
--- NOTE | 2020-02-15 17:18 | NUR ---
Discharge instructions reviewed with patient/family. Patient receptive and verbalizes understanding. Follow-up care arranged. Written instructions given to patient/family. MARK KRUSE
[2020-02-17 11:09] LABS: CREATININE,URINE 108.3 mg/dL (Not Estab.)
== END 2020-02-15 17:18 | disposition hospice, home (50) | DRG 637 ==
LOC: ED 13:39 → EDHOLD 17:11 → 5E 17:11 → 4E 17:44 → 5E 18:18
PROVIDERS: Emergency Medicine; Internal Medicine Nephrology; ADMIT Internal Medicine; ATTEND Internal Medicine
DX: E11.65 Type 2 diabetes mellitus with hyperglycemia (principal); N17.0 Acute kidney failure with tubular necrosis; N39.0 Urinary tract infection, site not specified; N18.4 Chronic kidney disease, stage 4 (severe); Z68.41 Body mass index [BMI] 40.0-44.9, adult; E66.01 Morbid (severe) obesity due to excess calories; Z51.5 Encounter for palliative care; Z66 Do not resuscitate; E83.59 Other disorders of calcium metabolism; R80.9 Proteinuria, unspecified; N13.9 Obstructive and reflux uropathy, unspecified; E11.22 Type 2 diabetes mellitus with diabetic chronic kidney disease; J45.40 Moderate persistent asthma, uncomplicated; E03.9 Hypothyroidism, unspecified; D50.9 Iron deficiency anemia, unspecified; G80.9 Cerebral palsy, unspecified; K21.0 Gastro-esophageal reflux disease with esophagitis; R62.7 Adult failure to thrive

== ENCOUNTER → 2020-02-12 | Outpatient (CLI) | payer MEDICARE, MEDICAID ==
[~2020-02-12] MED LIST changes: +BUMETANIDE1 MG PO; +KEFLEX500 M1 PO
[2020-02-12 11:18] LABS: HEMATOCRIT 38.4 % (37.0-47.0); MEAN CELL VOLUME 99.2 fl (81.0-99.0); MEAN CORPUSCULAR HGB 31.5 pg (27.0-31.0); MEAN CORPUSCULAR HGB CONC 31.8 g/dl (33.0-37.0); MEAN PLATELET VOLUME 11.8 fl (9.6-12.3); RED BLOOD COUNT 3.87 10*6/uL (4.10-5.10); RED CELL DISTRI WIDTH 14.2 % (0-14.5); WHITE BLOOD COUNT 12.8 10*3/uL (4.8-10.8)
[2020-02-12 11:37] LABS: ALBUMIN 3.4 gm/dl (3.1-4.5); CREATININE 3.03 mg/dL (0.55-1.02); POTASSIUM 5.1 mmol/L (3.5-5.1); TOTAL PROTEIN 7.9 gm/dL (6.4-8.2)
== END | disposition home or self-care (01) ==
LOC: LAB 11:01
PROVIDERS: ATTEND Family Medicine
DX: N18.3 Chronic kidney disease, stage 3 (moderate) (principal); R53.83 Other fatigue; E55.9 Vitamin D deficiency, unspecified; Z79.899 Other long term (current) drug therapy

== ENCOUNTER 2020-10-01 18:29 | Inpatient (IN) | payer MEDICARE, MEDICAID ==
[~2020-10-01] VITALS: Ht 147.3 cm; Wt 75.9 kg
[~2020-10-01 18:29] MED LIST changes: +BUMETANIDE1 MG PO; +GLIMEPIRIDE4 M1 PO; +KEFLEX500 M1 PO; +VICTOZA 2-0.6 MG/0.1 SC
[2020-10-01 18:39] VITALS: BP 104/70
[2020-10-01 20:12] LABS: BILIRUBIN Negative (Negative); BLOOD 3+ (Negative); CLARITY Cloudy (Clear); COLOR Yellow (Yellow); GLUCOSE Negative (Negative); KETONE Negative (Negative); LEUKO ESTERASE 2+ (Negative); NITRITE Positive (Negative); PH 5.5 (4.5-8.0); UROBILINOGEN 0.2 E.U./dl (0.0-1.0)
[2020-10-01 20:31] LABS: BACTERIA 2+; MUCOUS 1+; RBC 16-20 rbc/hpf (0-2); WBC 16-20 wbc/hpf (0-5)
[2020-10-01 20:50] VITALS: BP 106/71
[2020-10-01 20:54] LABS: BASO % 0.2 % (0.0-1.0); EOS # 0.1 10*3/uL (0.0-0.4); EOS % 0.4 % (1.0-4.0); LYMPH # 1.2 10*3/uL (1.3-4.4); LYMPH % 8.4 % (27.0-41.0); MEAN CELL VOLUME 100.8 fl (81.0-99.0); MEAN CORPUSCULAR HGB 30.5 pg (27.0-31.0); MEAN CORPUSCULAR HGB CONC 30.3 g/dl (33.0-37.0); MEAN PLATELET VOLUME 11.9 fl (9.6-12.3); MONO # 0.9 10*3/uL (0.1-1.0); MONO % 6.6 % (3.0-9.0); NEUT # 11.8 10*3/uL (2.3-7.9); NEUT % 83.9 % (47.0-73.0); PLATELET COUNT AUTOMATED 189 10*3/uL (130-400); RED BLOOD COUNT 3.67 10*6/uL (4.10-5.10); RED CELL DISTRI WIDTH 14.4 % (0-14.5); WHITE BLOOD COUNT 14.1 10*3/uL (4.8-10.8)
[2020-10-01 21:04] LABS: ACT PARTIAL THROMBO TIME 26.2 SECONDS (20.0-32.1); INTERNATIONAL NORM RATIO 1.1 (2.0-3.5)
[2020-10-01 21:11] LABS: ALBUMIN 2.9 gm/dl (3.1-4.5); ALKALINE PHOSPHATASE 105 U/L (45-117); BUN 47 mg/dl (7-24); CHLORIDE 112 mmol/L (98-107); CREATININE 3.14 mg/dL (0.55-1.02); POTASSIUM 3.8 mmol/L (3.5-5.1); SGOT/AST 22 IU/L (3-35); SGPT/ALT 20 U/L (12-78); SODIUM 141 mmol/L (136-145)
[2020-10-01 21:19] LABS: TROPONIN I < 0.015 ng/ml (<0.045)
[2020-10-01 22:01] VITALS: BP 110/79
[2020-10-01 23:50] VITALS: BP 112/84
[2020-10-02 08:00] VITALS: BP 122/84
[2020-10-02 12:00] VITALS: BP 121/77
[2020-10-02 16:00] VITALS: BP 107/62
[2020-10-02] MEDS ORDERED: GLIMEPIRIDE4 M1 PO (18:18)
[2020-10-02 20:00] VITALS: BP 105/66
[2020-10-03] VITALS: BP 125/63
[2020-10-03 06:27] LABS: BASO % 0.4 % (0.0-1.0); EOS # 0.3 10*3/uL (0.0-0.4); EOS % 3.7 % (1.0-4.0); HEMATOCRIT 33.8 % (37.0-47.0); LYMPH # 1.7 10*3/uL (1.3-4.4); LYMPH % 22.6 % (27.0-41.0); MEAN CORPUSCULAR HGB 30.2 pg (27.0-31.0); MEAN CORPUSCULAR HGB CONC 30.2 g/dl (33.0-37.0); MEAN PLATELET VOLUME 11.7 fl (9.6-12.3); MONO # 0.7 10*3/uL (0.1-1.0); MONO % 9.5 % (3.0-9.0); NEUT # 4.6 10*3/uL (2.3-7.9); NEUT % 63.4 % (47.0-73.0); PLATELET COUNT AUTOMATED 172 10*3/uL (130-400); RED BLOOD COUNT 3.38 10*6/uL (4.10-5.10); RED CELL DISTRI WIDTH 14.4 % (0-14.5); WHITE BLOOD COUNT 7.3 10*3/uL (4.8-10.8)
[2020-10-03 07:00] LABS: CREATININE 2.47 mg/dL (0.55-1.02); POTASSIUM 4.3 mmol/L (3.5-5.1)
[2020-10-03 08:00] VITALS: BP 108/66
[2020-10-03 12:05] VITALS: BP 112/70
[2020-10-03 16:00] VITALS: BP 106/52
[2020-10-04] VITALS: BP 107/46
[2020-10-04 08:00] VITALS: BP 126/56
[2020-10-04 16:00] VITALS: BP 102/63
[2020-10-04 20:00] VITALS: BP 99/53
[2020-10-05] VITALS: BP 102/67
[2020-10-05 06:14] LABS: BASO # 0.1 10*3/uL (0.0-0.1); BASO % 0.6 % (0.0-1.0); EOS # 0.4 10*3/uL (0.0-0.4); EOS % 4.8 % (1.0-4.0); HEMATOCRIT 35.4 % (37.0-47.0); LYMPH # 2.4 10*3/uL (1.3-4.4); LYMPH % 27.2 % (27.0-41.0); MEAN CELL VOLUME 101.1 fl (81.0-99.0); MEAN CORPUSCULAR HGB 30.3 pg (27.0-31.0); MEAN CORPUSCULAR HGB CONC 29.9 g/dl (33.0-37.0); MEAN PLATELET VOLUME 11.4 fl (9.6-12.3); MONO # 0.5 10*3/uL (0.1-1.0); MONO % 6.1 % (3.0-9.0); NEUT # 5.4 10*3/uL (2.3-7.9); NEUT % 60.7 % (47.0-73.0); PLATELET COUNT AUTOMATED 218 10*3/uL (130-400); RED CELL DISTRI WIDTH 14.2 % (0-14.5); WHITE BLOOD COUNT 8.8 10*3/uL (4.8-10.8)
[2020-10-05 06:26] LABS: CREATININE 2.18 mg/dL (0.55-1.02); POTASSIUM 4.5 mmol/L (3.5-5.1)
[2020-10-05 08:00] VITALS: BP 125/68
[2020-10-05] MEDS ORDERED: CEFUROXIME AXE250 MG PO (08:58)
== END 2020-10-05 13:01 | disposition hospice, home (50) | DRG 689 ==
LOC: ED 18:29 → EDHOLD 21:55 → 5E 21:55
PROVIDERS: Emergency Medicine; Internal Medicine; ADMIT Internal Medicine; ATTEND Internal Medicine
DX: N39.0 Urinary tract infection, site not specified (principal); R65.11 Systemic inflammatory response syndrome (SIRS) of non-infectious origin with acute organ dysfunction; N18.4 Chronic kidney disease, stage 4 (severe); N17.9 Acute kidney failure, unspecified; E11.649 Type 2 diabetes mellitus with hypoglycemia without coma; E11.22 Type 2 diabetes mellitus with diabetic chronic kidney disease; I12.9 Hypertensive chronic kidney disease with stage 1 through stage 4 chronic kidney disease, or unspecified chronic kidney disease; B96.20 Unspecified Escherichia coli [E. coli] as the cause of diseases classified elsewhere; R62.7 Adult failure to thrive; E03.9 Hypothyroidism, unspecified; K21.9 Gastro-esophageal reflux disease without esophagitis; Z68.35 Body mass index [BMI] 35.0-35.9, adult

== ENCOUNTER 2020-11-02 10:36 | Observation (INO) | payer MEDICARE, MEDICAID ==
[~2020-11-02] VITALS: Ht 147.3 cm; Wt 73.0 kg
[2020-11-02 10:40] VITALS: BP 105/65
[2020-11-02 11:29] LABS: HEMATOCRIT 39.8 % (37.0-47.0); MEAN CORPUSCULAR HGB 30.8 pg (27.0-31.0); MEAN CORPUSCULAR HGB CONC 31.2 g/dl (33.0-37.0); MEAN PLATELET VOLUME 11.7 fl (9.6-12.3); PLATELET COUNT AUTOMATED 241 10*3/uL (130-400); RED BLOOD COUNT 4.02 10*6/uL (4.10-5.10); RED CELL DISTRI WIDTH 14.6 % (0-14.5); WHITE BLOOD COUNT 17.2 10*3/uL (4.8-10.8)
[2020-11-02 11:39] LABS: ACT PARTIAL THROMBO TIME 26.6 SECONDS (20.0-32.1)
[2020-11-02 11:46] LABS: ALBUMIN 3.4 gm/dl (3.1-4.5); ALKALINE PHOSPHATASE 85 U/L (45-117); BUN 22 mg/dl (7-24); CHLORIDE 113 mmol/L (98-107); CREATININE 2.48 mg/dL (0.55-1.02); LIPASE 387 U/L (73-393); SGOT/AST 14 IU/L (3-35); SGPT/ALT 11 U/L (12-78); SODIUM 142 mmol/L (136-145); TOTAL PROTEIN 8.2 gm/dL (6.4-8.2)
[2020-11-02 11:48] LABS: PLATELET SUFFICIENCY NORMAL (NORMAL); TOTAL CELLS COUNTED 100 #CELLS
[2020-11-02 11:51] LABS: TROPONIN I < 0.015 ng/ml (<0.045)
[2020-11-02 11:59] LABS: BILIRUBIN Negative (Negative); BLOOD 3+ (Negative); CLARITY Turbid (Clear); COLOR Yellow (Yellow); GLUCOSE 1+ (Negative); KETONE Trace (Negative); LEUKO ESTERASE 3+ (Negative); NITRITE Negative (Negative); PH 6.5 (4.5-8.0); SPECIFIC GRAVITY 1.015 (1.001-1.030); UROBILINOGEN 0.2 E.U./dl (0.0-1.0)
[2020-11-02 12:19] LABS: BACTERIA TRACE; RBC TNTC rbc/hpf (0-2); WBC TNTC wbc/hpf (0-5)
[2020-11-02 13:21] VITALS: BP 105/68
[2020-11-02 17:00] VITALS: BP 113/65
[2020-11-02 20:04] VITALS: BP 119/78
[2020-11-03] VITALS: BP 100/71
[2020-11-03 08:00] VITALS: BP 105/84
[2020-11-03 12:00] VITALS: BP 126/74
[2020-11-03 16:00] VITALS: BP 109/63
[2020-11-03 20:00] VITALS: BP 113/75
[2020-11-04] VITALS: BP 107/79
[2020-11-04 06:28] LABS: BASO # 0.1 10*3/uL (0.0-0.1); BASO % 0.8 % (0.0-1.0); EOS # 0.2 10*3/uL (0.0-0.4); EOS % 2.8 % (1.0-4.0); HEMATOCRIT 36.5 % (37.0-47.0); LYMPH # 2.2 10*3/uL (1.3-4.4); LYMPH % 26.1 % (27.0-41.0); MEAN CELL VOLUME 100.6 fl (81.0-99.0); MEAN CORPUSCULAR HGB 30.9 pg (27.0-31.0); MEAN CORPUSCULAR HGB CONC 30.7 g/dl (33.0-37.0); MEAN PLATELET VOLUME 11.9 fl (9.6-12.3); MONO # 0.4 10*3/uL (0.1-1.0); MONO % 4.8 % (3.0-9.0); NEUT # 5.6 10*3/uL (2.3-7.9); NEUT % 65.3 % (47.0-73.0); PLATELET COUNT AUTOMATED 208 10*3/uL (130-400); RED BLOOD COUNT 3.63 10*6/uL (4.10-5.10); WHITE BLOOD COUNT 8.5 10*3/uL (4.8-10.8)
[2020-11-04 07:02] LABS: CREATININE 2.6 mg/dL (0.55-1.02); POTASSIUM 3.9 mmol/L (3.5-5.1)
[2020-11-04 08:00] VITALS: BP 118/59
[2020-11-04 12:00] VITALS: BP 112/65
[2020-11-04 16:00] VITALS: BP 105/54
[2020-11-04 20:00] VITALS: BP 122/83
[2020-11-05] VITALS: BP 129/84
[2020-11-05 05:58] LABS: BASO # 0.1 10*3/uL (0.0-0.1); BASO % 0.5 % (0.0-1.0); EOS # 0.3 10*3/uL (0.0-0.4); EOS % 2.1 % (1.0-4.0); LYMPH % 14.6 % (27.0-41.0); MEAN CORPUSCULAR HGB 30.6 pg (27.0-31.0); MEAN CORPUSCULAR HGB CONC 30.6 g/dl (33.0-37.0); MEAN PLATELET VOLUME 12.3 fl (9.6-12.3); MONO # 0.6 10*3/uL (0.1-1.0); MONO % 4.1 % (3.0-9.0); NEUT # 10.7 10*3/uL (2.3-7.9); NEUT % 78.4 % (47.0-73.0); PLATELET COUNT AUTOMATED 206 10*3/uL (130-400); WHITE BLOOD COUNT 13.6 10*3/uL (4.8-10.8)
[2020-11-05 06:06] LABS: CREATININE 2.55 mg/dL (0.55-1.02); POTASSIUM 4.1 mmol/L (3.5-5.1)
[2020-11-05 08:00] VITALS: BP 99/55
[2020-11-05 12:00] VITALS: BP 101/58
[2020-11-05 16:01] VITALS: BP 124/63
[2020-11-05 16:02] VITALS: BP 102/77
[2020-11-05] MEDS ORDERED: BUMETANIDE1 MG PO (16:05)
[2020-11-05 20:00] VITALS: BP 108/71
[2020-11-06] VITALS: BP 102/62
[2020-11-06 06:00] LABS: BASO # 0.1 10*3/uL (0.0-0.1); BASO % 0.4 % (0.0-1.0); EOS # 0.4 10*3/uL (0.0-0.4); EOS % 2.8 % (1.0-4.0); HEMATOCRIT 37.3 % (37.0-47.0); LYMPH # 2.6 10*3/uL (1.3-4.4); LYMPH % 19.8 % (27.0-41.0); MEAN CELL VOLUME 98.9 fl (81.0-99.0); MEAN CORPUSCULAR HGB 30.8 pg (27.0-31.0); MEAN CORPUSCULAR HGB CONC 31.1 g/dl (33.0-37.0); MEAN PLATELET VOLUME 11.9 fl (9.6-12.3); MONO # 0.5 10*3/uL (0.1-1.0); NEUT # 9.5 10*3/uL (2.3-7.9); NEUT % 72.5 % (47.0-73.0); PLATELET COUNT AUTOMATED 245 10*3/uL (130-400); RED BLOOD COUNT 3.77 10*6/uL (4.10-5.10); RED CELL DISTRI WIDTH 15.1 % (0-14.5); WHITE BLOOD COUNT 13.1 10*3/uL (4.8-10.8)
[2020-11-06 06:17] LABS: POTASSIUM 4.2 mmol/L (3.5-5.1)
[2020-11-06 06:35] LABS: CREATININE 2.44 mg/dL (0.55-1.02)
[2020-11-06 08:00] VITALS: BP 110/65
[2020-11-06 12:00] VITALS: BP 108/69
== END 2020-11-06 14:20 | disposition home or self-care (01) ==
LOC: ED 10:36 → 4E 13:22 → EDHOLD 13:22 → 4E 16:24
PROVIDERS: Emergency Medicine; ADMIT Internal Medicine; ATTEND Internal Medicine
DX: A41.9 Sepsis, unspecified organism (principal); N39.0 Urinary tract infection, site not specified; E11.649 Type 2 diabetes mellitus with hypoglycemia without coma; I50.32 Chronic diastolic (congestive) heart failure; E11.22 Type 2 diabetes mellitus with diabetic chronic kidney disease; N18.9 Chronic kidney disease, unspecified; N17.0 Acute kidney failure with tubular necrosis; N20.0 Calculus of kidney; D72.829 Elevated white blood cell count, unspecified; E87.8 Other disorders of electrolyte and fluid balance, not elsewhere classified; E66.01 Morbid (severe) obesity due to excess calories; Z98.890 Other specified postprocedural states; Z90.49 Acquired absence of other specified parts of digestive tract

== ENCOUNTER → 2021-02-13 | Outpatient (CLI) | payer MEDICARE, MEDICAID ==
[2021-02-13 13:57] LABS: HEMATOCRIT 40.5 % (37.0-47.0); MEAN CELL VOLUME 101.5 fl (81.0-99.0); MEAN CORPUSCULAR HGB 30.8 pg (27.0-31.0); MEAN CORPUSCULAR HGB CONC 30.4 g/dl (33.0-37.0); MEAN PLATELET VOLUME 11.5 fl (9.6-12.3); RED BLOOD COUNT 3.99 10*6/uL (4.10-5.10); RED CELL DISTRI WIDTH 14.6 % (0-14.5); WHITE BLOOD COUNT 11.5 10*3/uL (4.8-10.8)
[2021-02-13 14:08] LABS: ALBUMIN 3.5 gm/dl (3.1-4.5); CREATININE 2.43 mg/dL (0.55-1.02); POTASSIUM 4.4 mmol/L (3.5-5.1)
[2021-02-13 14:12] LABS: FREE T4 1.01 ng/dl (0.76-1.46); THYROID STIM HORMONE (HS) 8.58 uIU/ml (0.358-4.75)
== END | disposition home or self-care (01) ==
LOC: LAB 13:16
PROVIDERS: ATTEND Family Medicine
DX: N18.30 Chronic kidney disease, stage 3 unspecified (principal); E55.9 Vitamin D deficiency, unspecified; E78.00 Pure hypercholesterolemia, unspecified

== ENCOUNTER → 2021-05-05 | Outpatient (CLI) | payer MEDICARE, MEDICAID ==
[2021-05-05 12:47] LABS: HEMATOCRIT 38.4 % (37.0-47.0); MEAN CELL VOLUME 99.5 fl (81.0-99.0); MEAN CORPUSCULAR HGB 31.1 pg (27.0-31.0); MEAN CORPUSCULAR HGB CONC 31.3 g/dl (33.0-37.0); MEAN PLATELET VOLUME 11.6 fl (9.6-12.3); RED BLOOD COUNT 3.86 10*6/uL (4.10-5.10); RED CELL DISTRI WIDTH 13.2 % (0-14.5); WHITE BLOOD COUNT 10.3 10*3/uL (4.8-10.8)
[2021-05-05 13:05] LABS: ALBUMIN 3.4 gm/dl (3.1-4.5); CREATININE 2.71 mg/dL (0.55-1.02); FREE T4 1.47 ng/dl (0.76-1.46); POTASSIUM 4.5 mmol/L (3.5-5.1); TOTAL PROTEIN 8.2 gm/dL (6.4-8.2)
[2021-05-05 13:10] LABS: THYROID STIM HORMONE (HS) 0.481 uIU/ml (0.358-4.75)
== END | disposition home or self-care (01) ==
LOC: LAB 12:17
PROVIDERS: ATTEND Family Medicine
DX: I12.9 Hypertensive chronic kidney disease with stage 1 through stage 4 chronic kidney disease, or unspecified chronic kidney disease (principal); N18.30 Chronic kidney disease, stage 3 unspecified; D63.1 Anemia in chronic kidney disease; E03.9 Hypothyroidism, unspecified

== ENCOUNTER 2021-08-22 11:38 | Emergency (ER) | payer OTHER, MEDICAID ==
[~2021-08-22] VITALS: Ht 121.9 cm; Wt 72.6 kg
[2021-08-22 12:09] VITALS: BP 99/85
== END 2021-08-22 12:15 | disposition left against medical advice (07) ==
LOC: ED 11:38
DX: Z53.21 Procedure and treatment not carried out due to patient leaving prior to being seen by health care provider (principal)

== ENCOUNTER → 2021-12-06 | Outpatient (CLI) | payer OTHER, MEDICAID ==
[2021-12-06 10:56] LABS: HEMATOCRIT 38.7 % (37.0-47.0); MEAN CELL VOLUME 100.3 fl (81.0-99.0); MEAN CORPUSCULAR HGB 31.9 pg (27.0-31.0); MEAN CORPUSCULAR HGB CONC 31.8 g/dl (33.0-37.0); MEAN PLATELET VOLUME 11.4 fl (9.6-12.3); RED BLOOD COUNT 3.86 10*6/uL (4.10-5.10); RED CELL DISTRI WIDTH 13.3 % (0-14.5); WHITE BLOOD COUNT 9.7 10*3/uL (4.8-10.8)
[2021-12-06 11:13] LABS: CREATININE 2.56 mg/dL (0.55-1.02); POTASSIUM 4.4 mmol/L (3.5-5.1); TOTAL PROTEIN 7.9 gm/dL (6.4-8.2)
[2021-12-06 11:18] LABS: FREE T4 1.22 ng/dl (0.76-1.46); THYROID STIM HORMONE (HS) 0.742 uIU/ml (0.358-4.75)
[2021-12-06 11:25] LABS: VITAMIN D, 25-HYDROXY 25.9 ng/mL (30-100)
== END | disposition home or self-care (01) ==
LOC: LAB 10:20
PROVIDERS: ATTEND Family Medicine
DX: E03.9 Hypothyroidism, unspecified (principal); E55.9 Vitamin D deficiency, unspecified; R53.83 Other fatigue

== ENCOUNTER → 2022-11-05 | Outpatient (CLI) | payer OTHER, MEDICAID ==
[2022-11-05 17:25] LABS: HEMATOCRIT 30.9 % (37.0-47.0); MEAN CORPUSCULAR HGB 31.4 pg (27.0-31.0); MEAN CORPUSCULAR HGB CONC 31.4 g/dl (33.0-37.0); MEAN PLATELET VOLUME 11.4 fl (9.6-12.3); RED BLOOD COUNT 3.09 10*6/uL (4.10-5.10); RED CELL DISTRI WIDTH 12.9 % (0-14.5); WHITE BLOOD COUNT 11.5 10*3/uL (4.8-10.8)
[2022-11-05 18:00] LABS: ALKALINE PHOSPHATASE 66 U/L (46-116); BUN 60 mg/dl (9-23); CHLORIDE 107 mmol/L (98-107); CHOLESTEROL 133 mg/dL (<200); CPK 73 U/L (34-171); FREE T4 1.31 ng/dl (0.89-1.76); LDL CHOLESTEROL 73 mg/dL (9-159); POTASSIUM 4.5 mmol/L (3.4-5.1); THYROID STIM HORMONE (HS) 6.267 uIU/ml (0.550-4.780); TOTAL PROTEIN 8.2 gm/dL (6.0-8.0); TRIGLYCERIDES 148 mg/dl (<150)
[2022-11-05 18:01] LABS: SGPT/ALT < 7 U/L (10-49)
[2022-11-06 03:06] LABS: HEMOGOLBIN A1C 5.2 % (4.8-5.6)
== END | disposition home or self-care (01) ==
LOC: LAB 17:00
PROVIDERS: ATTEND Family Medicine
DX: E11.9 Type 2 diabetes mellitus without complications (principal); E78.00 Pure hypercholesterolemia, unspecified; E03.9 Hypothyroidism, unspecified; E55.9 Vitamin D deficiency, unspecified; D64.9 Anemia, unspecified

== ENCOUNTER 2022-11-08 11:34 | Emergency (ER) | payer OTHER, MEDICAID ==
[2022-11-08 12:24] LABS: BILIRUBIN Negative (Negative); BLOOD 3+ (Negative); CLARITY Turbid (Clear); COLOR Orange (Yellow); GLUCOSE Negative (Negative); KETONE Negative (Negative); LEUKO ESTERASE 3+ (Negative); NITRITE Negative (Negative); PH 5.5 (4.5-8.0); SPECIFIC GRAVITY 1.015 (1.001-1.030)
[2022-11-08 12:31] LABS: BASO % 0.3 % (0.0-1.0); EOS # 0.1 10*3/uL (0.0-0.4); EOS % 0.8 % (1.0-4.0); HEMATOCRIT 27.5 % (37.0-47.0); LYMPH # 0.8 10*3/uL (1.3-4.4); LYMPH % 9.1 % (27.0-41.0); MEAN CELL VOLUME 99.3 fl (81.0-99.0); MEAN CORPUSCULAR HGB 30.3 pg (27.0-31.0); MEAN CORPUSCULAR HGB CONC 30.5 g/dl (33.0-37.0); MONO # 0.7 10*3/uL (0.1-1.0); MONO % 7.3 % (3.0-9.0); NEUT # 7.5 10*3/uL (2.3-7.9); PLATELET COUNT AUTOMATED 230 10*3/uL (130-400); RED BLOOD COUNT 2.77 10*6/uL (4.10-5.10); RED CELL DISTRI WIDTH 13.4 % (0-14.5); WHITE BLOOD COUNT 9.2 10*3/uL (4.8-10.8)
[2022-11-08 12:36] LABS: BACTERIA 2+; EPITHELIAL CELLS 0-2; RBC TNTC rbc/hpf (0-2); WBC TNTC wbc/hpf (0-5)
[2022-11-08 13:04] LABS: ALKALINE PHOSPHATASE 68 U/L (46-116); BUN 67 mg/dl (9-23); CHLORIDE 104 mmol/L (98-107); POTASSIUM 4.9 mmol/L (3.4-5.1); TOTAL PROTEIN 8.1 gm/dL (6.0-8.0)
[2022-11-08 13:11] LABS: SGPT/ALT < 7 U/L (10-49)
[2022-11-08 15:36] VITALS: BP 100/60
== END 2022-11-08 15:36 | disposition short-term general hospital (02) ==
LOC: ED 11:34
PROVIDERS: Internal Medicine
DX: N17.9 Acute kidney failure, unspecified (principal); N39.0 Urinary tract infection, site not specified; N13.2 Hydronephrosis with renal and ureteral calculous obstruction; E11.9 Type 2 diabetes mellitus without complications; Z87.442 Personal history of urinary calculi; Z98.890 Other specified postprocedural states

== ENCOUNTER 2023-03-13 13:38 | Emergency (ER) | payer OTHER, MEDICAID ==
[~2023-03-13] VITALS: Wt 68.0 kg
[~2023-03-13 13:38] MED LIST changes: +SYNTHROID,LEVO88 MCG PO; +TRAZODONE100 MG PO
[2023-03-13 15:07] LABS: ALKALINE PHOSPHATASE 41 U/L (46-116); BUN 68 mg/dl (9-23); CHLORIDE 106 mmol/L (98-107); POTASSIUM 5.1 mmol/L (3.4-5.1); TOTAL PROTEIN 7.5 gm/dL (6.0-8.0)
[2023-03-13 15:10] LABS: SGPT/ALT < 7 U/L (10-49)
[2023-03-13 15:42] LABS: BILIRUBIN Negative (Negative); BLOOD 3+ (Negative); CLARITY Turbid (Clear); COLOR Yellow (Yellow); GLUCOSE Negative (Negative); KETONE Negative (Negative); LEUKO ESTERASE 3+ (Negative); NITRITE Negative (Negative); SPECIFIC GRAVITY 1.015 (1.001-1.030)
[2023-03-13 15:46] LABS: EOS % 0.3 % (1.0-4.0); HEMATOCRIT 37.5 % (37.0-47.0); LYMPH # 0.8 10*3/uL (1.3-4.4); LYMPH % 20.1 % (27.0-41.0); MEAN CELL VOLUME 102.5 fl (81.0-99.0); MEAN CORPUSCULAR HGB 31.7 pg (27.0-31.0); MEAN CORPUSCULAR HGB CONC 30.9 g/dl (33.0-37.0); MONO # 0.2 10*3/uL (0.1-1.0); MONO % 6.3 % (3.0-9.0); NEUT # 2.8 10*3/uL (2.3-7.9); NEUT % 72.8 % (47.0-73.0); PLATELET COUNT AUTOMATED 112 10*3/uL (130-400); RED BLOOD COUNT 3.66 10*6/uL (4.10-5.10); RED CELL DISTRI WIDTH 13.2 % (0-14.5); WHITE BLOOD COUNT 3.8 10*3/uL (4.8-10.8)
[2023-03-13 15:57] LABS: BACTERIA 4+; RBC TNTC rbc/hpf (0-2); WBC TNTC wbc/hpf (0-5)
[2023-03-14 10:28] LABS: HEMATOCRIT 36.5 % (37.0-47.0); LYMPH # 0.4 10*3/uL (1.3-4.4); MEAN CELL VOLUME 99.5 fl (81.0-99.0); MEAN CORPUSCULAR HGB 31.1 pg (27.0-31.0); MEAN CORPUSCULAR HGB CONC 31.2 g/dl (33.0-37.0); MEAN PLATELET VOLUME 11.5 fl (9.6-12.3); MONO # 0.2 10*3/uL (0.1-1.0); MONO % 4.1 % (3.0-9.0); NEUT # 3.1 10*3/uL (2.3-7.9); NEUT % 83.4 % (47.0-73.0); PLATELET COUNT AUTOMATED 110 10*3/uL (130-400); RED BLOOD COUNT 3.67 10*6/uL (4.10-5.10); WHITE BLOOD COUNT 3.7 10*3/uL (4.8-10.8)
[2023-03-14 10:50] LABS: ALKALINE PHOSPHATASE 38 U/L (46-116); CHLORIDE 110 mmol/L (98-107); LIPASE 179 U/L (12-53); POTASSIUM 5.1 mmol/L (3.4-5.1)
[2023-03-14 10:56] LABS: BUN 83 mg/dl (9-23); SGPT/ALT < 7 U/L (10-49)
[2023-03-14 20:50] VITALS: BP 106/64
== END 2023-03-14 21:00 | disposition short-term general hospital (02) ==
LOC: ED 13:38
PROVIDERS: Emergency Medicine; Physician Assistant Medical
DX: A41.9 Sepsis, unspecified organism (principal); R65.20 Severe sepsis without septic shock; N39.0 Urinary tract infection, site not specified; N17.9 Acute kidney failure, unspecified; N18.9 Chronic kidney disease, unspecified; Z88.8 Allergy status to other drugs, medicaments and biological substances; Z79.899 Other long term (current) drug therapy; Z87.442 Personal history of urinary calculi

== ENCOUNTER → 2023-05-01 | Outpatient (CLI) | payer OTHER, MEDICAID ==
[2023-05-01 13:11] LABS: HEMATOCRIT 32.8 % (37.0-47.0); MEAN CELL VOLUME 102.8 fl (81.0-99.0); MEAN CORPUSCULAR HGB 31.7 pg (27.0-31.0); MEAN CORPUSCULAR HGB CONC 30.8 g/dl (33.0-37.0); MEAN PLATELET VOLUME 11.4 fl (9.6-12.3); RED BLOOD COUNT 3.19 10*6/uL (4.10-5.10); RED CELL DISTRI WIDTH 14.4 % (0-14.5); WHITE BLOOD COUNT 6.9 10*3/uL (4.8-10.8)
[2023-05-01 13:38] LABS: ALKALINE PHOSPHATASE 54 U/L (46-116); BUN 64 mg/dl (9-23); CHLORIDE 110 mmol/L (98-107); CHOLESTEROL 194 mg/dL (<200); FREE T4 1.05 ng/dl (0.89-1.76); LDL CHOLESTEROL 121 mg/dL (9-159); POTASSIUM 5.3 mmol/L (3.4-5.1); TOTAL PROTEIN 7.2 gm/dL (6.0-8.0); TRIGLYCERIDES 142 mg/dl (<150)
[2023-05-01 13:47] LABS: SGPT/ALT < 7 U/L (5-49)
== END | disposition home or self-care (01) ==
LOC: LAB 12:39
PROVIDERS: ATTEND Family Medicine
DX: E78.00 Pure hypercholesterolemia, unspecified (principal); E03.9 Hypothyroidism, unspecified; K21.9 Gastro-esophageal reflux disease without esophagitis; I10 Essential (primary) hypertension

== ENCOUNTER → 2024-05-20 | Outpatient (CLI) | payer OTHER, MEDICAID ==
[~2024-05-20] MED LIST changes: +LEVOTHYROXINE75 MCG PO
[2024-05-20 11:19] LABS: HEMATOCRIT 31.6 % (37.0-47.0); MEAN CELL VOLUME 105.7 fl (81.0-99.0); MEAN CORPUSCULAR HGB 30.8 pg (27.0-31.0); MEAN CORPUSCULAR HGB CONC 29.1 g/dl (33.0-37.0); MEAN PLATELET VOLUME 10.9 fl (9.6-12.3); RED BLOOD COUNT 2.99 10*6/uL (4.10-5.10); RED CELL DISTRI WIDTH 13.1 % (0-14.5); WHITE BLOOD COUNT 12.7 10*3/uL (4.8-10.8)
[2024-05-20 11:59] LABS: VITAMIN D, 25-HYDROXY 47.7 ng/mL (30-100)
[2024-05-20 12:00] LABS: ALKALINE PHOSPHATASE 43 U/L (46-116); BUN 40 mg/dl (9-23); CHLORIDE 109 mmol/L (98-107); CHOLESTEROL 158 mg/dL (<200); CPK 458 U/L (34-171); FREE T4 1.91 ng/dl (0.89-1.76); LDL CHOLESTEROL 76 mg/dL (9-159); SGPT/ALT 11 U/L (5-49); TOTAL PROTEIN 7.1 gm/dL (6.0-8.0); TRIGLYCERIDES 178 mg/dl (<150)
== END | disposition home or self-care (01) ==
LOC: LAB 10:27
PROVIDERS: ATTEND Family Medicine
DX: R53.83 Other fatigue (principal); D64.9 Anemia, unspecified; E55.9 Vitamin D deficiency, unspecified; E78.00 Pure hypercholesterolemia, unspecified; E03.9 Hypothyroidism, unspecified; N18.30 Chronic kidney disease, stage 3 unspecified

== ENCOUNTER 2024-10-06 10:09 | Emergency (ER) | payer OTHER, MEDICAID ==
[~2024-10-06] VITALS: Wt 58.5 kg
[~2024-10-06 10:09] MED LIST changes: +LOSARTAN POTASS50 M1 PO
[2024-10-06] MEDS ORDERED: SODIUM CHLORIDE 0.9% 1,000 ML IV SCH (11:05)
[2024-10-06 11:11] LABS: BILIRUBIN Negative (Negative); BLOOD 3+ (Negative); CLARITY Turbid (Clear); COLOR Yellow (Yellow); GLUCOSE Negative (Negative); KETONE Negative (Negative); LEUKO ESTERASE 3+ (Negative); NITRITE Negative (Negative); SPECIFIC GRAVITY 1.015 (1.001-1.030); UROBILINOGEN 0.2 E.U./dl (0.0-1.0)
[2024-10-06 11:25] LABS: HEMATOCRIT 32.9 % (37.0-47.0); MEAN CELL VOLUME 103.8 fl (81.0-99.0); MEAN CORPUSCULAR HGB CONC 28.9 g/dl (33.0-37.0); MEAN PLATELET VOLUME 11.6 fl (9.6-12.3); PLATELET COUNT AUTOMATED 223 10*3/uL (130-400); RED BLOOD COUNT 3.17 10*6/uL (4.10-5.10); RED CELL DISTRI WIDTH 15.8 % (0-14.5); WHITE BLOOD COUNT 7.7 10*3/uL (4.8-10.8)
[2024-10-06 11:28] LABS: MANUAL DIFF REFLEX YES
[2024-10-06 11:29] LABS: BACTERIA 2+; EPITHELIAL CELLS 0-2; WBC TNTC wbc/hpf (0-5)
[2024-10-06 11:30] LABS: RBC 0-2 rbc/hpf (0-2)
[2024-10-06 11:45] LABS: ALKALINE PHOSPHATASE 56 U/L (46-116); BUN 75 mg/dl (9-23); CHLORIDE 109 mmol/L (98-107); TOTAL PROTEIN 7.7 gm/dL (6.0-8.0)
[2024-10-06 11:49] LABS: POTASSIUM 6.7 mmol/L (3.4-5.1); SGPT/ALT < 7 U/L (5-49)
[2024-10-06] MEDS ORDERED: cefTRIAXone Sodium 1 GM/10 ML SYR IV ONE (11:50)
[2024-10-06 11:55] LABS: ATYPICAL LYMPHS 1 % (0-0); BASOPHILS 1 % (0-1); TOTAL CELLS COUNTED 100 #CELLS
[2024-10-06] MEDS ORDERED: INSULIN REGULAR, HUMAN 1 UNIT/0.01 ML IV ONE (11:55)
[2024-10-06] MEDS ORDERED: CALCIUM GLUC IN NACL, ISO-OSM 100 ML IV ONE (11:55)
[2024-10-06] MEDS ORDERED: DEXTROSE 50% 25 GM/50 ML SYR IV ONE (11:55)
[2024-10-06] MEDS ORDERED: SODIUM POLYSTYRENE SULFONATE 15 GM/60 ML BOT PO ONE (11:55)
[2024-10-06 11:56] LABS: PLATELET SUFFICIENCY NORMAL (NORMAL)
[2024-10-06] MEDS ORDERED: SODIUM BICARBONATE 75 MEQ in SODIUM CHLORIDE 0.45% 1,000 ML IV ONE (12:10)
[2024-10-06] MEDS ORDERED: [UNRECOGNIZED DRUG - OTHER] IV ONE (16:15)
[2024-10-06] MEDS ORDERED: SODIUM BICARBONATE IV ONE (16:15)
[2024-10-06] MEDS ORDERED: DEXTROSE IV ONE (16:15)
[2024-10-06 18:20] VITALS: BP 122/58
[2024-10-06 19:20] LABS: POTASSIUM 5.5 mmol/L (3.4-5.1)
[2024-10-25] MEDS ORDERED: CIPRO500 MG PO ×2 (00:57→01:01)
[2024-10-25] MEDS ORDERED: CALCIUM ACETAT667 M3 PO ×2 (08:32→08:33)
[2024-10-30] MEDS ORDERED: LEVOTHYROXINE50 MCG PO (20:29)
== END 2024-10-06 21:06 | disposition short-term general hospital (02) ==
LOC: ED 10:09
PROVIDERS: Nurse Practitioner Family
DX: T83.193A Other mechanical complication of other urinary stent, initial encounter (principal); A41.9 Sepsis, unspecified organism; N17.9 Acute kidney failure, unspecified; E11.22 Type 2 diabetes mellitus with diabetic chronic kidney disease; N18.4 Chronic kidney disease, stage 4 (severe); N13.5 Crossing vessel and stricture of ureter without hydronephrosis; K21.9 Gastro-esophageal reflux disease without esophagitis; E78.1 Pure hyperglyceridemia; E03.9 Hypothyroidism, unspecified; E87.5 Hyperkalemia; N39.0 Urinary tract infection, site not specified; E66.01 Morbid (severe) obesity due to excess calories; Z68.42 Body mass index [BMI] 45.0-49.9, adult; Z87.442 Personal history of urinary calculi; Z79.899 Other long term (current) drug therapy; Y84.8 Other medical procedures as the cause of abnormal reaction of the patient, or of later complication, without mention of misadventure at the time of the procedure; Y92.89 Other specified places as the place of occurrence of the external cause

== ENCOUNTER 2024-12-18 09:11 | Inpatient (IN) | payer OTHER, MEDICAID ==
[~2024-12-18] VITALS: Ht 142.2 cm; Wt 68.1 kg
[~2024-12-18 09:11] MED LIST changes: +CALCIUM ACETAT667 M3 PO; +LEVOTHYROXINE50 MCG PO
[2024-12-18 09:16] VITALS: BP 124/65
[2024-12-18 09:55] LABS: BASO # 0.0 10*3/uL (0.0-0.1); BASO % 0.4 % (0.0-1.0); EOS # 0.3 10*3/uL (0.0-0.4); EOS % 2.7 % (1.0-4.0); MEAN CELL VOLUME 107.6 fl (81.0-99.0); MEAN CORPUSCULAR HGB 31.0 pg (27.0-31.0); MEAN PLATELET VOLUME 10.6 fl (9.6-12.3); MONO # 0.6 10*3/uL (0.1-1.0); MONO % 5.5 % (3.0-9.0); NEUT # 8.8 10*3/uL (2.3-7.9); NEUT % 81.4 % (47.0-73.0); NUCLEATED RED BLOOD CELL 0.0 % (0.0-0.0); NUCLEATED RED BLOOD CELL 0.0 10*3/uL (0.0-0.0); PLATELET COUNT AUTOMATED 315 10*3/uL (130-400); RED CELL DISTRI WIDTH 15.3 % (0-14.5)
[2024-12-18 10:15] LABS: BUN 93 mg/dl (9-23)
[2024-12-18] MEDS ORDERED: DEXTROSE 50% 25 GM/50 ML SYR IV ONE (10:25)
[2024-12-18] MEDS ORDERED: INSULIN REGULAR, HUMAN 1 UNIT/0.01 ML IV ONE (10:25)
[2024-12-18] MEDS ORDERED: SODIUM CHLORIDE 0.9% 1,000 ML IV ONE (10:25)
[2024-12-18] MEDS ORDERED: SODIUM POLYSTYRENE SULFONATE 15 GM/60 ML BOT PO ONE (10:25)
[2024-12-18 10:26] LABS: BILIRUBIN Negative (Negative); BLOOD 3+ (Negative); CLARITY Turbid (Clear); COLOR Yellow (Yellow); KETONE Negative (Negative); LEUKO ESTERASE 3+ (Negative); NITRITE Negative (Negative); PH 6.5 (4.5-8.0); SPECIFIC GRAVITY 1.010 (1.001-1.030); UROBILINOGEN 0.2 E.U./dl (0.0-1.0)
[2024-12-18] MEDS ORDERED: SODIUM BICARBONATE 5 MEQ/10 ML SYR IV ONE (10:30)
[2024-12-18] MEDS ORDERED: SODIUM BICARBONATE 50 MEQ/50 ML VIAL IV ONE (10:35)
[2024-12-18 10:40] LABS: WBC TNTC wbc/hpf (0-5)
[2024-12-18 11:03] LABS: VENOUS BLOOD GAS O2 SAT 91.5 % (60.0-85.0)
[2024-12-18 11:32] LABS: BUN 105 mg/dl (9-23)
[2024-12-18] MEDS ORDERED: Midazolam Hydrochloride 2 MG/2 ML VIAL IM ONE (11:45)
[2024-12-18] MEDS ORDERED: [UNRECOGNIZED DRUG - OTHER] IV SCH (12:30)
[2024-12-18] MEDS ORDERED: SODIUM BICARBONATE IV SCH ×2 (12:30→22:50)
[2024-12-18] MEDS ORDERED: DEXTROSE IV SCH (12:30)
[2024-12-18 13:01] VITALS: BP 124/76
[2024-12-18 13:21] LABS: BUN 105.0 mg/dl (9-23)
[2024-12-18 13:30] VITALS: BP 96/54
[2024-12-18 16:00] VITALS: BP 132/77
[2024-12-18] MEDS ORDERED: Piperacillin Sodium/Tazobact 2.25 GM in SODIUM CHLORIDE 0.9% 50 ML IV SCH (18:00)
[2024-12-18 20:00] VITALS: BP 101/62
[2024-12-18] MEDS ORDERED: SODIUM CHLORIDE 0.9% IV SCH (22:50)
[2024-12-18] MEDS ORDERED: DEXTROSE 10 % IN WATER 250 ML IV PRN (22:50)
[2024-12-19] VITALS (16 sets, daily range): BP systolic 101–141; BP diastolic 60–82
[2024-12-19] MEDS ORDERED: SODIUM BICARBONATE 150 MEQ in DEXTROSE 5% 1,000 ML IV SCH (00:10)
[2024-12-19] MEDS ORDERED: SODIUM BICARBONATE 50 MEQ/50 ML VIAL IV ONE (01:14)
[2024-12-19 06:00] LABS: MEAN CORPUSCULAR HGB 30.4 pg (27.0-31.0); MEAN PLATELET VOLUME 10.6 fl (9.6-12.3); NUCLEATED RED BLOOD CELL 0.0 % (0.0-0.0); NUCLEATED RED BLOOD CELL 0.0 10*3/uL (0.0-0.0); PLATELET COUNT AUTOMATED 237 10*3/uL (130-400); RED CELL DISTRI WIDTH 15.4 % (0-14.5)
[2024-12-19 06:07] LABS: MEAN CELL VOLUME 100.0 fl (81.0-99.0)
[2024-12-19 06:08] LABS: MANUAL DIFF REFLEX YES
[2024-12-19 06:31] LABS: BUN 92.0 mg/dl (9-23)
[2024-12-19] MEDS ORDERED: INSULIN REGULAR, HUMAN 1 UNIT/0.01 ML SC SCH (07:30)
[2024-12-19 07:42] LABS: BASOPHILS 2 % (0-1); PLATELET SUFFICIENCY NORMAL (NORMAL)
[2024-12-19] MEDS ORDERED: CALCIUM ACETATE 667 MG CAP PO SCH (08:00)
[2024-12-19] MEDS ORDERED: Lactated Ringer's Solution 1,000 ML IV SCH (09:25)
[2024-12-19] MEDS ORDERED: SODIUM CHLORIDE 0.9% 500 ML IV ONE (10:49)
[2024-12-20] VITALS: BP 104/73
[2024-12-20 05:57] LABS: BUN 66.0 mg/dl (9-23)
[2024-12-20 06:11] LABS: BASO # 0.0 10*3/uL (0.0-0.1); BASO % 0.6 % (0.0-1.0); EOS # 0.3 10*3/uL (0.0-0.4); EOS % 4.8 % (1.0-4.0); MEAN CELL VOLUME 98.5 fl (81.0-99.0); MEAN CORPUSCULAR HGB 31.1 pg (27.0-31.0); MEAN PLATELET VOLUME 10.6 fl (9.6-12.3); MONO # 0.6 10*3/uL (0.1-1.0); MONO % 8.7 % (3.0-9.0); NEUT # 3.9 10*3/uL (2.3-7.9); NEUT % 61.1 % (47.0-73.0); NUCLEATED RED BLOOD CELL 0.0 % (0.0-0.0); NUCLEATED RED BLOOD CELL 0.0 10*3/uL (0.0-0.0); PLATELET COUNT AUTOMATED 215 10*3/uL (130-400); RED CELL DISTRI WIDTH 15.9 % (0-14.5)
[2024-12-20 08:00] VITALS: BP 101/75
[2024-12-20] MEDS ORDERED: DEXTROSE 5% 1,000 ML IV SCH (08:20)
[2024-12-20 12:00] VITALS: BP 124/71
[2024-12-20 16:00] VITALS: BP 118/76
[2024-12-20 20:00] VITALS: BP 105/69
[2024-12-21] VITALS: BP 125/77
[2024-12-21 08:00] VITALS: BP 116/76
[2024-12-21 08:13] LABS: BASO # 0.1 10*3/uL (0.0-0.1); BASO % 0.6 % (0.0-1.0); EOS # 0.3 10*3/uL (0.0-0.4); EOS % 3.5 % (1.0-4.0); MEAN CELL VOLUME 100.0 fl (81.0-99.0); MEAN CORPUSCULAR HGB 31.1 pg (27.0-31.0); MEAN PLATELET VOLUME 10.0 fl (9.6-12.3); MONO # 0.5 10*3/uL (0.1-1.0); MONO % 5.8 % (3.0-9.0); NEUT # 6.2 10*3/uL (2.3-7.9); NEUT % 70.3 % (47.0-73.0); NUCLEATED RED BLOOD CELL 0.0 % (0.0-0.0); NUCLEATED RED BLOOD CELL 0.0 10*3/uL (0.0-0.0); PLATELET COUNT AUTOMATED 196 10*3/uL (130-400); RED CELL DISTRI WIDTH 15.4 % (0-14.5)
[2024-12-21 08:50] LABS: BUN 50.0 mg/dl (9-23)
[2024-12-21] MEDS ORDERED: CEFUROXIME250 MG PO (08:53)
[2024-12-21 20:00] VITALS: BP 108/48
== END 2024-12-21 21:50 | disposition home or self-care (01) | DRG 689 ==
LOC: ED 09:11 → 4E 11:03 → EDHOLD 11:03 → 4E 11:35
PROVIDERS: Internal Medicine; ADMIT Internal Medicine; ATTEND Internal Medicine
PROC: 02H633Z Insertion of Infusion Device into Right Atrium, Percutaneous Approach (ICD-10-PCS; 2024-12-18)
PROC: B548ZZA Ultrasonography of Superior Vena Cava, Guidance (ICD-10-PCS; 2024-12-18)
PROC: 30233N1 Transfusion of Nonautologous Red Blood Cells into Peripheral Vein, Percutaneous Approach (ICD-10-PCS; principal; 2024-12-19)
DX: N30.00 Acute cystitis without hematuria (principal); N17.0 Acute kidney failure with tubular necrosis; E87.20 Acidosis, unspecified; N18.4 Chronic kidney disease, stage 4 (severe); N13.1 Hydronephrosis with ureteral stricture, not elsewhere classified; Z94.81 Bone marrow transplant status; E03.9 Hypothyroidism, unspecified; Z66 Do not resuscitate; I12.9 Hypertensive chronic kidney disease with stage 1 through stage 4 chronic kidney disease, or unspecified chronic kidney disease; E86.0 Dehydration; E87.5 Hyperkalemia; Z51.5 Encounter for palliative care; Z82.49 Family history of ischemic heart disease and other diseases of the circulatory system; Z83.3 Family history of diabetes mellitus; Z87.442 Personal history of urinary calculi; Z93.6 Other artificial openings of urinary tract status